=== PATIENT | male | born 1930 | race Caucasian/White ===

== ENCOUNTER 2019-01-26 09:57 | Observation (INO) ==
--- NOTE | 2019-01-26 10:37 | Diag Imaging Result Doc PS360 ---
EXAM: CHEST-PORTABLE INDICATION: stroke like symptoms TECHNIQUE: One view COMPARISON: 11/26/2017 FINDINGS: Inspiration is suboptimal. There is a calcified granuloma at the periphery of the right lower lung zone. Central vasculature appears prominent, likely a combination of central venous crowding and pulmonary venous congestion. There is vague opacity at the medial left lung base behind the heart silhouette suggesting atelectasis versus infiltrate. The pacemaker is stable. The cardiac silhouette appears mildly prominent. IMPRESSION: 1.Prominent central vasculature, likely a combination of central venous crowding from poor inspiration and pulmonary venous congestion. 2.Vague opacity at the medial left lung base suggesting atelectasis and/or infiltrate. Electronically signed by Jaleel Meraz 01/26/2019 10:35 AM
[2019-01-26 10:51] LABS: BASO# 0.03 X1000 (0.0-0.2); BASO% 0.4 % (0.0-0.8); EOS# 0.46 X1000 (0.0-0.7); HEMOGLOBIN 11.4 g/dL (14.0-18.0); LYMPH# 1.28 X1000 (1.2-3.4); LYMPH% 16.7 % (20.5-51.1); MCHC 30.8 g/dL (33-37); MCV 100.5 FL (81-99); MONO# 0.92 X1000 (0.11-0.59); MPV 11.2 FL (7.4-10.4); NEUT# 4.98 X1000 (1.4-6.5); NEUT% 64.9 % (42.2-75.2); PLT 258 X1000 (130-400); RBC 3.68 XMIL (4.7-6.1); RDW 13.7 % (11.5-14.5); WBC 7.67 X1000 (4.8-10.8)
[2019-01-26 11:00] LABS: INR 1.01; PROTIME 14.1 Seconds (11.0-16.0)
[2019-01-26 11:01] LABS: PTT 36.5 Seconds (22.3-41.8)
--- NOTE | 2019-01-26 11:46 | Diag Imaging Result Doc PS360 ---
EXAM: CT HEAD W/O CONTRAST 01/26/2019 HISTORY: stroke like symptoms TECHNIQUE: This exam was performed using automated exposure control, adjustment of mA or kV according to patient size, and/or use of iterative reconstruction technique. COMMENT: There is moderate generalized cerebral and cerebellar atrophy. There is no evidence of mass effect bleed or abnormal extra-axial fluid collection. There is periventricular white matter lucency bilaterally similar in appearance to the previous examination of 02/28/2016. The visualized paranasal sinuses are clear. The calvarium is intact. IMPRESSION: Chronic ischemic microvascular changes. Moderate cerebral and cerebellar atrophy. Electronically signed by Uday Garnica 01/26/2019 11:43 AM
[2019-01-26 12:33] LABS: ALB/GLOB RATIO 1.3; ALBUMIN 3.8 g/dL (3.5-5.0); CALCIUM 8.7 mg/dL (8.8-10.2); MAGNESIUM 3.3 mg/dL (1.5-2.7); PHOSPHORUS 7.2 mg/dL (2.7-4.5); TOTAL BILIRUBIN 0.29 mg/dL (0.20-1.00); TOTAL PROTEIN 6.7 g/dL (6.3-8.3)
[2019-01-26 12:38] LABS: POTASSIUM 6.5 mmol/L (3.5-5.1)
[2019-01-26] MEDS ORDERED: CALCIUM CHLORIDE SYRINGE IV ONE (13:19)
[2019-01-26] MEDS ORDERED: ALBUTEROL NEB INH ONE (13:19)
[2019-01-26] MEDS ORDERED: D50W SYRINGE IV ONE (13:19)
[2019-01-26] MEDS ORDERED: KAYEXALATE PO ONE (13:19)
[2019-01-26] MEDS ORDERED: HUMULIN R IV ONE (13:19)
[2019-01-26] MEDS ORDERED: SODIUM BICARBONATE 8.4% IV ONE (13:20)
[2019-01-26] MEDS ORDERED: LASIX IV ONE (13:20)
[2019-01-26] MEDS ORDERED: ZITHROMAX 500 MG/NS 500 MG/250 ML IVPB IV ONE ×2 (13:31→21:00)
[2019-01-26] MEDS ORDERED: ROCEPHIN 1 GM in NS 50 ML IV ONE ×2 (13:31→21:00)
--- NOTE | 2019-01-26 13:35 | PROVIDER DOCUMENTATION ---
This chart was entered by Rose Ariza Scribe, acting as scribe for Travis Rod MD. HPI-General Adult - General Stated Complaint: stroke-like Time Seen by Provider: 01/26/19 10:04 Source: patient, EMS Allergies/Adverse Reactions: Patient Allergies Allergy/AdvReac Type Severity Reaction Status Date / Time No Known Allergies Allergy Verified 01/27/18 13:55 Home Medications: Home Medication List Medication Instructions Recorded Confirmed Last Taken Type Calcium Acetate 667 mg PO TID 03/14/13 09/16/18 09/15/18 19:00 History Omeprazole [Prilosec] 20 mg PO DAILY@0700 03/14/13 09/16/18 09/16/18 05:45 History Nifedipine [Nifedipine ER] 30 mg PO QAM 11/01/17 09/16/18 09/16/18 05:45 History Carvedilol [Coreg] 25 mg PO BID tablet 11/08/17 09/16/18 09/16/18 05:45 Rx Venlafaxine E.r. [Effexor Xr] 37.5 mg PO QAM capsule 11/08/17 09/16/18 09/16/18 05:45 Rx Allopurinol 100 mg PO BID 01/27/18 09/16/18 09/16/18 05:45 History Ezetimibe/Simvastatin 1 each PO QHS 01/27/18 09/16/18 09/15/18 19:00 History [Ezetimibe-Simvastatin 10-20 mg] Trazodone [Desyrel] 1 - 2 tab PO QHS 01/27/18 09/16/18 09/15/18 19:00 History Insulin Lispro Protamin/Lispro 0 unit SQ DIRECTED 09/09/18 09/16/18 Unknown History [Humalog Mix 75-25 Vial] Hydrocodone/APAP 10 mg/325 mg 1 ea PO Q6H PRN PRN #30 tab 09/16/18 Unknown Rx [[place]-10] - History of Present Illness -Gen Adult Nature of Presenting Problems: Patient is a 88 year old male who presents to the ED via EMS with elevated blood pressure. EMS states patient's family stated the patient might be having a stroke. EMS states patient's family stated patient's blood pressure was elevated. EMS states on fire's arrival patient's blood pressure was 144/80. Jeffrey winston denies chest pain, nausea, vomiting and diarrhea. Patient does state generalized weakness and cough. EMS states patient is a dialysis patient and did miss his Saturday dialysis. Patient does note cough, productive of white sputum, worsening over the last few days. Location of Pain/Injury: reports: none Pain Radiation: reports: no radiation Quality of Pain: reports: none Severity: reports: mild Onset/Duration: reports: unsure Timing: reports: still present Context/Activities at Onset: reports: light activity Modifying Factors: improves with: nothing Associated Symptoms: reports: cough, weakness Similar Symptoms Previously?: Yes Recently seen or treated by another doctor?: No Review of Systems - Adult - REVIEW OF SYSTEMS - ADULT Constitutional: reports: no symptoms reported. denies: chills, fever, fatique Eyes: reports: no symptoms reported Ears, Nose, Mouth & Throat: reports: no symptoms reported Cardiovascular: reports: no symptoms reported. denies: chest pain, irregular heart rate, palpitations Respiratory: reports: cough. denies: shortness of breath, wheezing Gastrointestinal: reports: no symptoms reported Genitourinary: reports: no symptoms reported Musculoskeletal: reports: muscle weakness. denies: back pain, muscle aches, neck pain Integumentary: reports: no symptoms reported Neurological: reports: no symptoms reported Psychiatric: reports: no symptoms reported Endocrine: reports: no symptoms reported Hematologic/Lymphatic: reports: no symptoms reported Allergic/Immunologic: reports: no symptoms reported All Other Systems: Reviewed and Negative Past History - Adult - PAST MEDICAL HISTORY-ADULT Review of Records: reports: Nursing Assessment Review, Medications Reviewed, Social history reviewed & non-contributory. Major Childhood Illnesses: reports: denies history Cardiovascular: reports: CHF, HTN Respiratory: reports: denies history Gastrointestinal: reports: denies history Obstetrical/Gynecological: reports: denies history Genitourinary: reports: kidney disease Musculoskeletal: reports: denies history Neurological: reports: denies history Psychiatric: reports: depression Endocrine/Immune: reports: Diabetes Other Conditions: reports: denies history - PRIOR SURGERIES/PROCEDURES Surgical/Procedure History: reports: orthopedic (extremity), joint replacement - IMMUNIZATION STATUS Childhood Immunizations: See Nurse Assessment Flu Vaccine: See Nurse Assessment - FAMILY HISTORY Family History: reviewed, not pertinent - SOCIAL HISTORY Smoking: cigarettes (former) Substance Use: denies Living Situation: family Physical Exam-General - PHYSICAL EXAM-ADULT Initial Vital Signs Reviewed: Yes - CONSTITUTIONAL General Appearance: appears well, alert, no apparent distress - EYES Eyes: other (pin point pupils bilaterally) - RESPIRATORY Respiratory: chest non-tender, rhonchi (bilaterally) - CARDIOVASCULAR Cardiovascular: regular rate, rhythm, gallop/S3 - GASTROINTESTINAL (ABDOMEN) Abdominal Exam: normal bowel sounds, non tender, soft - MUSCULOSKELETAL Extremity: non-tender, other (dialysis shunt to left upper arm with positive thrill. nonfunctioning shunt to left lower arm. diffuse). negative: erythema, swelling - SKIN Integumentary: normal color, normal turgor, warm/dry, ecchymosis (LUE) - NEUROLOGIC Neurologic: grossly normal, no motor/sensory deficits. negative: facial droop, motor weakness - PSYCHIATRIC Psych/Mental Status: normal mood/affect, oriented x 3 Progress - PLAN OF CARE/RESULTS Result Diagrams: 01/26/19 10:16 01/26/19 12:06 - XRAY 1 XRAY Study: Chest Impression: See EMR Report ( EXAM: CHEST-PORTABLE INDICATION: stroke like symptoms TECHNIQUE: One view COMPARISON: 11/26/2017 FINDINGS: Inspiration is suboptimal. There is a calcified granuloma at the periphery of the right lower lung zone. Central vasculature appears prominent, likely a combination of central venous crowding and pulmonary venous congestion. There is vague opacity at the medial left lung base behind the heart silhouette suggesting atelectasis versus infiltrate. The pacemaker is stable. The cardiac silhouette appears mildly prominent. IMPRESSION: 1.Prominent central vasculature, likely a combination of central venous crowding from poor inspiration and pulmonary venous congestion. 2.Vague opacity at the medial left lung base suggesting atelectasis and/or infiltrate. Electronically signed by Jaleel Meraz 01/26/2019 10:35 AM 01/26/19 1035 Interpreting Physician: Jaleel Meraz MD Dictated Date/Time: 01/26/19 1033 cc: Travis Rod MD; Ever Willett MD) - CT/MRI 1 CT Study: Head Impression: See EMR Report ( EXAM: CT HEAD W/O CONTRAST 01/26/2019 HISTORY: stroke like symptoms TECHNIQUE: This exam was performed using automated expo sure control, adjustment of mA or kV according to patient size, and/or use of iterative reconstruction technique. COMMENT: There is moderate generalized cerebral and cerebellar atrophy. There is no evidence of mass effect bleed or abnormal extra-axial fluid collection. There is periventricular white matter lucency bilaterally similar in appearance to the previous examination of 02/28/2016. The visualized paranasal sinuses are clear. The calvarium is intact. IMPRESSION: Chronic ischemic microvascular changes. Moderate cerebral and cerebellar atrophy. Electronically signed by Uday Garnica 01/26/2019 11:43 AM 01/26/19 1143 Interpreting Physician: Uday Garnica MD Dictated Date/Time: 01/26/19 1142 cc: Travis Rod MD; Ever Willett MD) - CONSULTS/PCP/HOSPITALIST Notification #1 *Consult/PCP/Hospitalist*: LEYDA Soto for Dr. Rice Time Discussed: 13:26 Reason/Comments: Dr. Rod consulted with Brittany about patient. Consult Disposition: other (Brittany states patient missed Saturday dialysis last week and only did part of his Saturday dialysis. Brittany states she will contact her nurses upstairs so the patient can receive dialysis.) #2 Consult: Dr. Willett Time Discussed: 13:29 Reason/Comments: Dr. Rod consulted with Dr. Willett about patient. Consult Disposition: Admit (give rocephin/zithromax for CAP) Departure - Departure Date of Disposition Decision: 01/26/19 Time of Disposition Decision: 13:21 DIAGNOSIS: Weakness, End-stage renal disease on hemodialysis, Hyperkalemia, Uremia Community acquired pneumonia Qualifiers: Laterality: left Lung location: lower lobe of lung Qualified Code(s): J18.1 - Lobar pneumonia, unspecified organism Disposition: ADMITTED INPATIENT 09 Certified Medical Emergency: Emergent Condition: Fair Referrals and Follow-Ups: Ever Willett MD [Primary Care Provider] - - Critical Care Note This patient required my direct & personal management of CC.: Yes Total Time (mins): 46 Critical Care Statement: This patient required my direct personal management to treat or rule out processes, the absence of which, could potentiallly result in sudden, clinically significant life or limb threatening deterioration. Attestation - Physician/ DELLA Attestation Patient care was provided by Advanced Practice Provider:: No The physician spent face to face time with patient:: Yes Advanced Practice Provider documentation review:: Supervising physician onsite and consulted in the evaluation and care of this patient. The physician did have a face to face encounter with the patient. This chart was documented by the indicated scribe, (Rose Ariza Scribe) and accurately reflects the services I performed and decisions made by me, Travis Rod MD, as attested by the provider's signature.
[2019-01-26] MEDS ORDERED: TYLENOL PO PRN (13:36)
[2019-01-26] MEDS ORDERED: ZOFRAN PO PRN (13:36)
[2019-01-26] MEDS ORDERED: NS 2,000 ML MISC PRN (13:57)
--- NOTE | 2019-01-26 14:15 | ED EKG INTERP ---
EKG Interpretation - EKG Time of EKG reading by physician:: 14:14 EKG Read and Signed by:: Travis Rod EKG Interpretation (*Must complete 3 of following elements*): Abnormal Rate: 60 Rhythm: atrial paced rhythm [place]: left QRS: NSIVCD [place] Interval: normal ST Wave: non-specific ST changes Prior EKG Comparison: unchanged from prior Attestation - Physician/ DELLA Attestation Patient care was provided by Advanced Practice Provider:: No The physician spent face to face time with patient:: Yes Advanced Practice Provider documentation review:: Supervising physician onsite and consulted in the evaluation and care of this patient. The physician did have a face to face encounter with the patient.
--- NOTE | 2019-01-26 14:20 | EKG Report ---
Test Performed on : 01/26/2019 2:02:39 PM Test Reason : Stroke like symptoms Blood Pressure : / mmHG Vent. Rate : 060 BPM Atrial Rate : 000 BPM P-R Int : 172 ms QRS Dur : 178 ms QT Int : 560 ms P-R-T Axes : 000 -60 113 degrees QTc Int : 560 ms Atrial-paced rhythm Left axis deviation Left bundle branch block Abnormal ECG When compared with ECG of 09-SEP-2018 15:13, Electronic atrial pacemaker has replaced Electronic ventricular pacemaker Unconfirmed Result
--- NOTE | 2019-01-26 18:29 | NEPHROLOGY CONSULTATION ---
DATE: 01/26/2019 REASON FOR ADMISSION: Altered mental status with weakness appearing as stroke-like. REASON FOR CONSULT: Hyperkalemia, end-stage renal disease with assistance with medical management. HISTORY OF PRESENT ILLNESS: Mr. Sage is an 88-year-old white male who is known to our outpatient services for hemodialysis on Saturday, Saturday, Saturday. The patient was due for his dialysis treatment today and due to his weakness and stroke-like symptoms his family bypassed the dialysis clinic and brought him straight to [facility] emergency department. The patient had actually missed his last treatment on last Saturday due to not feeling well, went to his treatment on Saturday, though he did not stay for his full entire treatment. Today he presents with a potassium of 6.5 in the emergency room. He has an elevated blood pressure. He denies any chest pain. No fever or chills. No increased work of breathing. No nausea, vomiting, or diarrhea. Generalized weakness with cough. PAST MEDICAL HISTORY: End-stage renal disease with hemodialysis on Saturday, Saturday, Saturday, systolic and diastolic heart failure, hypertension, anemia of chronic disease, diabetes mellitus type 2, osteodystrophy of chronic disease, depression, hyperphosphatemia, reflux. PREVIOUS SURGICAL HISTORY: Orthopedic joint replacement, patient has had dialysis tunnel catheter placement. FAMILY HISTORY: Noncontributory to kidney injury. SOCIAL HISTORY: He lives with his family. Denies any tobacco, alcohol or illicit drug use as a former tobacco smoker. ALLERGIES: Listed as no known drug allergies. HOME MEDICATIONS: Prilosec, Coreg, Effexor, simvastatin, allopurinol, vitamin C, PhosLo, vitamin B12, mirtazapine, multivitamin. REVIEW OF SYSTEMS: Times 10 with pertinent positives listed above in the HPI. His most recent vital signs temperature 98.1 degrees, blood pressure 139/67, heart rate 69, respirations 20, he is on 2 L nasal cannula, last recorded saturation 100%, he has had 0 recorded in or out. LAB: Sodium 135, potassium 6.5, chloride 94, CO2 23, BUN 102, creatinine 8, glucose 155, his anion gap is 18, calcium 8.7, phosphorus 7.2, albumin 3.8, white count 7.51, hemoglobin 11.4, hematocrit 37, platelet count 258,000. The patient has a PT of 14.1 and INR of 10.1 with a PTT of 36.5. PHYSICAL: This is an 88-year-old elderly male resting quietly in bed. He appears chronically ill no acute distress.Skin: Warm and dry. HEENT: Normocephalic, atraumatic. Conjunctiva is pale. He has MELODY. Mucous membranes are dry. Neck: Supple, trachea midline. No evidence of JVD. Cardiovascular: He is regular rate and rhythm. He does have a gallop, S3 present. Lungs: Diminished breath sounds with poor inspiratory effort. Clear to auscultation anterior, equal excursion. Abdomen: Soft, nontender, positive bowel sounds. Genitourinary: Not inspected, minimal void with dialysis assist. Neurologic: Patient is alert and oriented. He does have weakness to all 4 extremities. He does have appearance of a facial droop to the left. Patient had a chest x-ray indicating prominent central vascularization with poor inspiratory and pulmonary venous congestion, medial left lung suggesting atelectasis or infiltrate. CT of the head was performed without contrast, chronic ischemic microvascular changes, moderate cerebral and cerebellar atrophy, no acute disease. ASSESSMENT AND PLAN: 1. Chronic kidney disease stage 5D. Patient has been noncompliant in his dialysis treatments. We will plan to dialyze patient on a 2K bath we will dialyze for 3-1/2 hours. We will attempt to challenge patient's outpatient dry weight. 2. Electrolytes and acid-base balance. Patient has hyperkalemia. These are with correction on dialysis. 3. Anemia. This remains close to baseline of hemoglobin of 12. 4. Stroke-like symptoms more than likely secondary to hyperkalemia. We will plan for dialysis today. We will reevaluate in the a.m. Like to thank you for allowing us to follow with this patient. Dictated by LEYDA Vo for Curtis Rice MD cc: LEYDA Vo MD Russell T. Barr, MD
[2019-01-26] MEDS ORDERED: ZETIA PO SCH (21:00)
[2019-01-26] MEDS ORDERED: ZOCOR PO SCH (21:00)
[2019-01-26] MEDS: PHOSLO PO SCH (22:49)
[2019-01-26] MEDS: COREG PO SCH (22:50)
[2019-01-26] MEDS: ZYLOPRIM PO SCH (22:50)
--- NOTE | 2019-01-27 06:30 | HISTORY AND PHYSICAL ---
CHIEF COMPLAINT: Severe generalized weakness, possible stroke. 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 His caregivers at home noted severe weakness today and decided it would be better for him to go to the emergency room with what they thought might be a stroke. He has had some chronic dry cough for months which has not really been worse. They have not reported any fever or chills. In the emergency room he was found to have hyperkalemia with a potassium of 6.5. His weakness seemed generalized rather than focal. Further history documented that he had skipped his hemodialysis last Saturday and only had a partial treatment on Saturday. I believe that explains his elevated BUN and creatinine and hyperkalemia. PAST MEDICAL HISTORY: In addition to the above, he has a history of systolic and diastolic heart failure, hypertension, anemia of chronic disease, type 2 diabetes mellitus, depression, esophageal reflux and osteoarthritis. FAMILY HISTORY: Positive for hypertension and diabetes. SOCIAL HISTORY: He is , lives with his . His two sons are but one daughter- in-law is still quite attentive and has arranged for [id number] sitters for him and his . His has significant dementia. Mr. Sage is a former cigarette smoker but has not smoked in at least 20 years. ALLERGIES: None known. HOME MEDICATIONS: See computer list. REVIEW OF SYSTEMS: GENERAL: No fever, chills, night sweats, or weight loss. RESPIRATORY: Chronic dry cough but no sputum production or shortness of breath. CARDIOVASCULAR: He has previously had several heart attacks but no recent angina. He has known chronic systolic and diastolic congestive heart failure. This has been much easier to control and his hypertension since beginning hemodialysis. GI: His appetite has been adequate. He denies any nausea, vomiting, diarrhea. Has occasional constipation. : He produces very little urine. His renal failure is presumed due to hypertension and diabetes nephrosclerosis. PHYSICAL EXAMINATION: GENERAL APPEARANCE: A chronically ill-appearing, elderly gentleman resting quietly in bed. He is alert, recognizes me and his speech is clear and without any dysarthria. SKIN: Warm, pink and dry. HEENT: There is no evidence of trauma. Conjunctivae are pale. Mucous membranes are slightly tacky. NECK: Supple with no JVD or bruits. CARDIOVASCULAR: Regular rate and rhythm. Intermittent S3 gallop is noted. RESPIRATORY: His lung sounds are slightly diminished with reduced respiratory effort but I did not hear any crackles or wheezes. ABDOMEN: Soft, nontender with active bowel sounds. NEUROLOGIC: He is alert and oriented and has equal hand drip and is able to move all extremities. There is very slight facial asymmetry with a slight droop to the left side which is old. DATABASE: Potassium 6.5. BUN 102. Creatinine 8. His baseline BUN is approximately 30 to 35. Baseline creatinine 3 to 3.5. Glucose 155. Phosphorous 7.2. Hematocrit 37%. Chest x-ray showed reduced inspiratory effort and haziness in the left midlung morrison suggesting atelectasis or infiltrate. CT of the brain without contrast shows chronic ischemic microvascular changes with no acute findings. ASSESSMENT: 1. End-stage renal disease, hemodialysis dependent with recently ineffective dialysis for multiple reasons. He has already undergone inpatient hemodialysis today and his potassium is down to 4.7. 2. Type 2 diabetes mellitus. No longer requiring insulin since hemodialysis. 3. Generalized weakness secondary to hyperkalemia. I see no evidence for a new stroke. TREATMENT PLAN: Will admit for inpatient hemodialysis which has already been accomplished. He will likely be discharged in the morning, possibly on oral antibiotics. cc: Ever Willett MD
[2019-01-27] MEDS ORDERED: PRILOSEC PO SCH (07:00)
[2019-01-27 07:57] LABS: ALBUMIN 3.4 g/dL (3.5-5.0); CALCIUM 7.9 mg/dL (8.8-10.2); CREATININE 5.6 mg/dL (0.7-1.2); PHOSPHORUS 5.6 mg/dL (2.7-4.5); POTASSIUM 5.3 mmol/L (3.5-5.1)
[2019-01-27] MEDS ORDERED: VITAMIN B-12 PO SCH (09:00)
[2019-01-27] MEDS ORDERED: VITAMIN C PO SCH (09:00)
[2019-01-27] MEDS ORDERED: ZITHROMAX PO SCH (09:00)
[2019-01-27] MEDS ORDERED: EFFEXOR XR PO SCH (09:00)
[2019-01-27] MEDS: COREG PO SCH (09:26)
[2019-01-27] MEDS: ZYLOPRIM PO SCH (09:26)
[2019-01-27] MEDS: PHOSLO PO SCH (09:26)
[2019-01-27 11:52] VITALS: BP 135/52
--- NOTE | 2019-01-27 19:12 | DISCHARGE SUMMARY ---
ADMISSION DATE: 01/26/2019 DISCHARGE DATE: 01/27/2019 FINAL DIAGNOSES: 1. Generalized muscle weakness secondary to #2. 2. Hyperkalemia secondary to #3. 3. End-stage renal disease, on hemodialysis. 4. Diabetes mellitus with chronic renal disease. 5. Essential hypertension. HISTORY OF PRESENT ILLNESS: Mr. Sage is an 88-year-old gentleman who lives at home with his demented and has nearly constant sitters in attendance. The sitter was preparing him for his hemodialysis session yesterday morning when she noticed generalized severe weakness. Fearing a stroke, she had him brought to the emergency room instead of dialysis. In the emergency room, his examination was nonfocal but his laboratory revealed a markedly elevated BUN, creatinine, and potassium of 6.5 mg/dL. It was felt he would need overnight observation and inpatient hemodialysis. For further details, see his dictated History and Physical and Nephrology consult. HOSPITAL COURSE: He was taken to the Hemodialysis Unit and Dr. Rice arranged his hemodialysis session. Afterwards, his potassium was down to 4.7. Chest x-ray on admission documented reduced inspiratory effort but there was some haziness behind the left heart that was felt to represent atelectasis or infiltrate. His white blood count was normal but he had been complaining of cough for some time. I feel he may have some early pneumonia and he received two doses of Zithromax and will complete the Z pack treatment at home. This morning, he is stronger and able to stand and transfer to bedside chair with standby assistance. His neurologic exam remains nonfocal and I feel the hyperkalemia explains his muscle weakness yesterday and that he can be discharged today and return for his usual scheduled hemodialysis tomorrow. DISCHARGE MEDICATIONS: Acetaminophen 650 mg q six hours p.r.n. for pain, Allopurinol 200 mg daily, ascorbic acid 1 gram daily, azithromycin 250 mg daily for three days, calcium acetate 667 mg twice a day with meals, carvedilol 25 mg twice a day, vitamin B12 1000 mcg p.o. daily, ezetimibe/simvastatin one tablet at bedtime, omeprazole 20 mg daily, venlafaxine ER 37.5 mg daily, mirtazapine 15 mg at bedtime, trazodone 100 mg at bedtime as needed for sleep, multivitamin one daily. He is to return to my office in 8 to 14 days for transition of care visit. cc: Ever Willett MD
--- NOTE | 2019-01-27 20:01 | NEPHROLOGY PROGRESS NOTE ---
DATE: 01/27/2019 TIME SEEN: 0920 hours. SUBJECTIVE: Mr. Sage is sitting up in bed. He states that he is fatigued after dialysis treatment yesterday. Denies any chest pain or increased work of breathing. OBJECTIVE: His most recent vital signs: Temperature 98.6 degrees, blood pressure 125/51, heart rate 60, respirations 20. He is on room air. Last recorded saturation is 100%. He has had 300 mL in, with 1 L out removed on dialysis. This is an 88-year-old white male who is currently resting in bed. He had his hemodialysis treatment yesterday. He appears chronically ill with no acute distress. His skin is warm and dry. HEENT: Normocephalic, atraumatic. Conjunctivae pale. He has MELODY. Some arcus senilis present. Mucous membranes are dry. Neck is supple. Trachea midline. No JVD. Cardiovascular: Regular rate and rhythm. He has a soft gallop. Lungs: Diminished respiratory effort. Clear to auscultation. Remains on room air. Abdomen soft, nontender. Positive bowel sounds. Genitourinary not inspected. Minimal void with dialysis assist. Extremities have no edema. No clubbing or cyanosis. Neurological: He is alert and oriented x3. LABORATORY DATA: Sodium is 136, potassium is 5.3, chloride 95, CO2 is 24, BUN 63, creatinine 5.6, glucose is 120, anion gap is 17, calcium is 7.9, phosphorus 5.9, albumin 3.4. White count 7.67, hemoglobin 11.4, hematocrit 37, platelet count 258,000. ASSESSMENT AND PLAN: 1. Chronic kidney disease stage 5. The patient had his routine dialysis treatment yesterday. His potassium has returned to stable level of 5.3. No indications for intervention today. He has discussed that he is to attend his outpatient dialysis treatment in the morning. 2. Electrolytes and acid-base balance. Hyperkalemia has resolved. 3. Anemia. This is stable. 4. Strokelike symptoms secondary to hyperkalemia. This has improved status post dialysis. I would like to thank you for allowing us to follow with this patient. Dictated by LEYDA Vo for Curtis Rice MD cc: LEYDA Vo MD Russell T. Willett, MD
== END 2019-01-27 12:24 | disposition home or self-care (01) ==
LOC: SUPCPDRO → 3N 09:57 → ED 09:57
PROVIDERS: ADMIT Internal Medicine; ATTEND Internal Medicine
CPT/HCPCS: 70450; 71010; 71045; 80053; 80069; 83605; 83735; 84100; 84132; 84484; 85025; 85610; 85730; 87040; 93005; 94640; 99285; A9270; J0456; J0696; J7030

== ENCOUNTER 2019-01-30 11:54 | Inpatient (IN) ==
[2019-01-30] MEDS ORDERED: TYLENOL PO ONE (13:07)
[2019-01-30 13:13] LABS: BASO# 0.02 X1000 (0.0-0.2); BASO% 0.2 % (0.0-0.8); EOS# 0.29 X1000 (0.0-0.7); EOS% 2.2 % (0.0-10.0); HEMATOCRIT 39.5 % (42.0-52.0); IMM GRAN# 0.06 X1000 (0.0-0.04); IMM GRAN% 0.5 % (0.0-0.5); LYMPH# 1.34 X1000 (1.2-3.4); LYMPH% 10.1 % (20.5-51.1); MCHC 30.4 g/dL (33-37); MCV 102.1 FL (81-99); MONO# 1.01 X1000 (0.11-0.59); MONO% 7.6 % (1.7-9.3); MPV 11.6 FL (7.4-10.4); NEUT# 10.49 X1000 (1.4-6.5); NEUT% 79.4 % (42.2-75.2); PLT 258 X1000 (130-400); RBC 3.87 XMIL (4.7-6.1); RDW 13.7 % (11.5-14.5); WBC 13.21 X1000 (4.8-10.8)
[2019-01-30 13:47] LABS: ALB/GLOB RATIO 1.6; ALBUMIN 4.1 g/dL (3.5-5.0); CALCIUM 8.5 mg/dL (8.8-10.2); CREATININE 6.6 mg/dL (0.7-1.2); TOTAL BILIRUBIN 0.26 mg/dL (0.20-1.00); TOTAL PROTEIN 6.6 g/dL (6.3-8.3)
[2019-01-30 13:51] LABS: POTASSIUM 6.1 mmol/L (3.5-5.1)
--- NOTE | 2019-01-30 14:08 | Diag Imaging Result Doc PS360 ---
EXAM: CHEST-1 VIEW 01/30/2019 HISTORY: fall TECHNIQUE: AP portable upright at 1348 COMMENT: The inspiration is suboptimal. The opacity previously present in the retrocardiac region of the left lower lobe on 01/26/2019 has improved. Otherwise there has been no significant change. IMPRESSION: Improved left lower lobe atelectasis. Electronically signed by Uday Garnica 01/30/2019 2:05 PM
--- NOTE | 2019-01-30 14:09 | Diag Imaging Result Doc PS360 ---
EXAM: SHOULDER 1 VIEW RIGHT 01/30/2019 HISTORY: fall TECHNIQUE: Right shoulder one view COMMENT: There is probable calcium pyrophosphate deposition in the acromioclavicular joint and severe degenerative changes present in the glenohumeral joint with ztpr-jr-[id number] contact and sclerosis and subchondral cyst formation. There is a small bony fragment above the greater tuberosity which was also apparently present on 01/21/2019. IMPRESSION: Osteoarthritis with calcium pyrophosphate deposition disease. Electronically signed by Uday Garnica 01/30/2019 2:06 PM
--- NOTE | 2019-01-30 14:10 | Diag Imaging Result Doc PS360 ---
EXAM: XRAY PELVIS W/HIP 2-3VW RT 01/30/2019 HISTORY: fall TECHNIQUE: AP pelvis and right hip two views COMMENT: There is narrowing of the joint spaces in both hips. There is extensive arteriosclerosis. There is an intertrochanteric fracture of the right femur. There is calcium pyrophosphate deposition in the symphysis pubis. IMPRESSION: Right intertrochanteric fracture. Osteoarthritis. Arteriosclerosis. Electronically signed by Uday Garnica 01/30/2019 2:08 PM
--- NOTE | 2019-01-30 15:48 | PROVIDER DOCUMENTATION ---
This chart was entered by Nelida Marks Scribe, acting as scribe for Vielka Morales MD. HPI-Musculoskeletal Pain/Inj - GENERAL Chief Complaint: Hip Pain Stated Complaint: fall/hip pain Time Seen by Provider: 01/30/19 12:01 Source: patient, family (daughter) - HX OF PRESENT ILLNESS-MUSKULOSKELTAL Quality of Pain: reports: aching Severity in ED: moderate Onset/Duration: this morning (1115am) Timing: still present Modifying Factors: improves with: immobilization. 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 denies: back/neck pain, chest pain, dizziness, nausea, shortness of breath, snap/crack/pop sensation, vomiting - HIP/PELVIS PAIN/INJURY Hip Pain Location: reports: hip (R) Context / Method of Injury: reports: fall Associated Symptoms: reports: denies symptoms - LOWER EXTREMITY PAIN/INJURY Lower Extremities Pain: hip: right Context / Method of Injury: reports: fell Associated Symptoms: reports: denies symptoms - UPPER EXTREMITY PAIN/INJURY Extremities Pain Location: shoulder: right (has chronic pain but sts this is worse) Context / Method of Injury: reports: fell Associated Symptoms: reports: denies symptoms Review of Systems - Adult - REVIEW OF SYSTEMS - ADULT Constitutional: reports: no symptoms reported Eyes: reports: no symptoms reported Ears, Nose, Mouth & Throat: reports: no symptoms reported Cardiovascular: denies: chest pain, palpitations Respiratory: denies: cough, shortness of breath, wheezing Gastrointestinal: denies: abdominal pain, diarrhea, nausea, vomiting Genitourinary: reports: no symptoms reported Musculoskeletal: reports: see HPI, joint pain (rt shoulder and rt hip), muscle aches. denies: back pain, neck pain Integumentary: reports: no symptoms reported Neurological: denies: dizziness/vertigo, headache/migraines Psychiatric: reports: no symptoms reported Endocrine: reports: no symptoms reported Hematologic/Lymphatic: reports: see HPI, easy bruising Allergic/Immunologic: reports: no symptoms reported All Other Systems: Reviewed and Negative Past History - Adult - PAST MEDICAL HISTORY-ADULT Review of Records: reports: Old Records Reviewed, Nursing Assessment Review, Medications Reviewed, Social history reviewed & non-contributory. Major Childhood Illnesses: reports: denies history Cardiovascular: reports: CHF, HTN Respiratory: reports: denies history Gastrointestinal: reports: denies history Obstetrical/Gynecological: reports: denies history Genitourinary: reports: kidney disease Musculoskeletal: reports: arthritis Hand Dominance: Right Handed Neurological: reports: denies history Psychiatric: reports: depression Endocrine/Immune: reports: Diabetes Other Conditions: reports: denies history - PRIOR SURGERIES/PROCEDURES Surgical/Procedure History: reports: orthopedic (extremity), joint replacement - IMMUNIZATION STATUS Childhood Immunizations: See Nurse Assessment Flu Vaccine: See Nurse Assessment - FAMILY HISTORY Family History: reviewed, not pertinent - SOCIAL HISTORY Smoking: quit greater than 1 year Substance Use: denies Alcohol Use Frequency: never Living Situation: family Physical Exam-Injury Related - Physical Exam-Injury Related Initial Vital Signs Reviewed: Yes General Appearance: alert, no apparent distress Eyes: PERRL/EOMI, pink conjunctivae Head, Ears, Nose, Mouth & Throat: moist mucous membranes, normal ENT inspection Neck: full range of motion, supple, normal inspection Respiratory: chest non-tender, lungs clear, normal breath sounds Cardiovascular: normal peripheral pulses, regular rate, rhythm Chest/Breast: deferred Abdominal Exam: normal bowel sounds, non tender, soft Male Genitalia: deferred Rectal Exam: deferred Hemoccult Exam: deferred Lymphatic: no adenopathy Back Exam: normal inspection, no CVA tenderness, no vertebral tenderness Extremity: no pedal edema, no calf tenderness, normal capillary refill, pelvis stable, erythema (with skin tear to left elbow), tenderness (rt hip and rt shoulder) Integumentary: normal color, warm/dry Neurologic: grossly normal, no motor/sensory deficits Psych/Mental Status: normal mood/affect, normal thought content, normal thought process, oriented x 3 - Glascow Coma Score Best Eye Response ([place]): (4) open spontaneously Best Verbal Response ([place]): (5) oriented Best Motor Response ([place]): (6) obeys commands [place] Total: 15 Progress - PLAN OF CARE/RESULTS Progress/Plan/Lab Results: Vital Signs - 8 hr 01/30/19 12:05 01/30/19 12:06 01/30/19 12:10 Temperature 97.8 F Pulse Rate 61 60 60 Respiratory Rate 18 18 24 Blood Pressure 104/53 104/53 O2 Sat by Pulse Oximetry 92 L 93 L 01/30/19 12:20 01/30/19 12:30 01/30/19 12:40 Temperature Pulse Rate 61 66 63 Respiratory Rate 16 21 18 Blood Pressure O2 Sat by Pulse Oximetry 96 94 L 92 L 01/30/19 12:42 01/30/19 12:50 01/30/19 13:00 Temperature Pulse Rate 76 75 Respiratory Rate 18 7 L 17 Blood Pressure 109/68 O2 Sat by Pulse Oximetry 98 94 L 01/30/19 13:10 01/30/19 13:20 01/30/19 13:30 Temperature Pulse Rate 72 72 69 Respiratory Rate 17 14 16 Blood Pressure O2 Sat by Pulse Oximetry 91 L 93 L 92 L 01/30/19 13:40 01/30/19 13:50 01/30/19 14:00 Temperature Pulse Rate 75 71 71 Respiratory Rate 16 13 Blood Pressure O2 Sat by Pulse Oximetry 81 L 83 L 100 Laboratory Results - last 24 hr 01/30/19 01/30/19 01/30/19 12:08 12:08 12:08 WBC 13.21 H RBC 3.87 L Hgb 12.0 L Hct 39.5 L MCV 102.1 H MCH 31.0 MCHC 30.4 L RDW Std Deviation 13.7 Plt Count 258 MPV 11.6 H Immature Gran % (Auto) 0.5 Neut % (Auto) 79.4 H Lymph % (Auto) 10.1 L [place] % (Auto) 7.6 Eos % (Auto) 2.2 Baso % (Auto) 0.2 Immature Gran # (Auto) 0.06 H Neut # (Auto) 10.49 H Lymph # (Auto) 1.34 [place] # (Auto) 1.01 H Eos # (Auto) 0.29 Baso # (Auto) 0.02 Sodium 132 L Potassium 6.1 H* Chloride 91 L Carbon Dioxide 26 Anion Gap 15 BUN 75 H Creatinine 6.6 H Estimated GFR/1.73 m2 8 BUN/Creatinine Ratio 11 Glucose 165 H Calculated Osmolality 290 Calcium 8.5 L Total Bilirubin 0.26 AST 16 ALT 15 Alkaline Phosphatase 78 Troponin T 0.058 Total Protein 6.6 Albumin 4.1 Globulin 2.5 Albumin/Globulin Ratio 1.6 Orders Category Date Time Status CHEST-1 VIEW [RAD] Stat Exams 01/30/19 12:31 Completed SHOULDER 1 VIEW RIGHT [RAD] Stat Exams 01/30/19 12:31 Completed XRAY PELVIS W/HIP 2-3VW RT [RAD] Stat Exams 01/30/19 12:31 Completed CBC WITH ELECTRONIC DIFF [HEME] Stat Lab 01/30/19 12:08 Completed COMPREHENSIVE METABOLIC PANEL [CHEM] Stat Lab 01/30/19 12:08 Completed TROPONIN T Stat Lab 01/30/19 12:08 Completed Acetaminophen [Tylenol] Med 01/30/19 13:07 Discontinued 1,000 mg PO NOW ONE Result Diagrams: 01/30/19 12:08 01/30/19 12:08 - REASSESSMENT Reassessment #1 Time Reassessed: 12:37 (dr morales called to bedside pt is unresponsive with agonal breathing. pt had cpr started 1237 and pt then started moving arms and blinking. cpr was stopped. pt was incontient of urine and was given 1 amp of atropine @1241. pupils are pinpoint. pt at 1243 was having nausea and is awake and speaking. ) Status: worsening Reassessment #2 Time Reassessed: 13:48 (dr morales at bedside. pt placed on nonrebreather due to brief episodes of low O2 and going unresponsive. family is at bedside. pt now is a/o x3 and calm) Status: unchanged Reassessment #3 Time Reassessed: 14:57 (waiting on dr osullivan to return call ) Status: unchanged - EKG 1 Time of EKG reading by physician:: 12:49 EKG Read and Signed by:: Vielka Morales EKG Interpretation (*Must complete 3 of following elements*): Abnormal Rate: 80 Rhythm: sinus rhythm w/ 1st degree av block [place]: left (deviatuion) QRS: other (nonspecific intraventricular block) NC Interval: normal ST Wave: normal Comments: lateral/inferior infarct, age undetermined - XRAY 1 XRAY: Right XRAY Study: Shoulder Impression: See EMR Report (EXAM: SHOULDER 1 VIEW RIGHT 01/30/2019 HISTORY: fall TECHNIQUE: Right shoulder one view COMMENT: There is probable calcium pyrophosphate deposition in the acromioclavicular joint and severe degenerative changes present in the glenohumeral joint with uprf-fu-drok contact and sclerosis and subchondral cyst formation. There is a small bony fragment above the greater tuberosity which was also apparently present on 01/21/2019. IMPRES WILMA: Osteoarthritis with calcium pyrophosphate deposition disease. Electronically signed by Uday Garnica 01/30/2019 2:06 PM 01/30/19 1406 Interpreting Physician: Uday Garnica MD Dictated Date/Time: 01/30/19 1405 cc: Vielka Morales MD; Ever Osullivan MD) 2 XRAY: Right XRAY Study: Pelvis, Hip Impression: See EMR Report (EXAM: XRAY PELVIS W/HIP 2-3VW RT 01/30/2019 HISTORY: fall TECHNIQUE: AP pelvis and right hip two views COMMENT: There is narrowing of the joint spaces in both hips. There is extensive arteriosclerosis. There is an intertrochanteric fracture of the right femur. There is calcium pyrophosphate deposition in the symphysis pubis. IMPRESSION: Right intertrochanteric fracture. Osteoarthritis. Arteriosclerosis. Electronically signed by Uday Garnica 01/30/2019 2:08 PM 01/30/19 1408 Interpreting Physician: Uday Garnica MD Dictated Date/Time: 01/30/19 1407 cc: Vielka Morales MD; Ever Osullivan MD) 3 XRAY: Bilateral XRAY Study: Chest Impression: See EMR Report (EXAM: CHEST-1 VIEW 01/30/2019 HISTORY: fall TECHNIQUE: AP portable upright at 1348 COMMENT: The inspiration is suboptimal. The opacity previously present in the retrocardiac region of the left lower lobe on 01/26/2019 has improved. Otherwise there has been no significant change. IMPRESSION: Improved left lower lobe atelectasis. Electronically signed by Uday Garnica 01/30/2019 2:05 PM 01/30/19 1405 Interpreting Physician: Uday Garnica MD Dictated Date/Time: 01/30/19 1401 cc: Vielka Morales MD; Ever Osullivan MD) - CONSULTS/PCP/HOSPITALIST Notification #1 *Consult/PCP/Hospitalist*: dr cheyanne dillon Time Discussed: 14:36 (NPO after midnight and admit to hospitalist) Reason/Comments: phone consult #2 Consult: Dr. Osullivan Time Discussed: 15:48 Reason/Comments: hip fx Consult Disposition: Admit Departure - Departure Date of Disposition Decision: 01/30/19 Time of Disposition Decision: 15:47 DIAGNOSIS: End-stage renal disease on hemodialysis Hip fracture, right Qualifiers: Encounter type: initial encounter Fracture type: closed Qualified Code(s): S72 .001A - Fracture of unspecified part of neck of right femur, initial encounter for closed fracture Disposition: ADMITTED INPATIENT 09 Certified Medical Emergency: Emergent Condition: Stable Referrals and Follow-Ups: Ever Osullivan MD [Primary Care Provider] - - Critical Care Note This patient required my direct & personal management of CC.: Yes Total Time (mins): 36 Critical Care Statement: This patient required my direct personal management to treat or rule out processes, the absence of which, could potentiallly result in sudden, clinically significant life or limb threatening deterioration. Attestation - Physician/ DELLA Attestation Patient care was provided by Advanced Practice Provider:: No The physician spent face to face time with patient:: Yes Advanced Practice Provider documentation review:: Supervising physician onsite and consulted in the evaluation and care of this patient. The physician did have a face to face encounter with the patient. This chart was documented by the indicated scribe, (Nelida Marks Scribe) and accurately reflects the services I performed and decisions made by me, Vielka Morales MD, as attested by the provider's signature.
[2019-01-30] MEDS ORDERED: TORADOL IM ONE (16:28)
[2019-01-30] MEDS ORDERED: HUMALOG IV ONE (18:28)
[2019-01-30] MEDS ORDERED: D50W SYRINGE IV ONE (18:28)
[2019-01-30] MEDS ORDERED: CALCIUM GLUCONATE 1 GM in NS 50 ML IV ONE (18:28)
[2019-01-30] MEDS ORDERED: KAYEXALATE PO ONE (18:32)
--- NOTE | 2019-01-30 18:50 | HISTORY AND PHYSICAL ---
CHIEF COMPLAINT: Fell at home this morning, right hip fracture. HISTORY OF PRESENT ILLNESS: Mr. 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 He was at home this morning preparing to go to his hemodialysis session. 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 He was unable to get up and was brought by EMS to the emergency room for evaluation. He also complained of some right shoulder pain. He has had multiple x-rays and has an intertrochanteric fracture of the right hip. Twice while he was in the emergency room here today, he has had episodes of decreased responsiveness and some bradycardia and hypoxemia. During the first episode, he seemed to lose a pulse and actually had CPR for a moment, and then recovered. The emergency room physician has been hesitant to give him any narcotics for his hip pain due to the possible respiratory depression. When I examined him a few minutes ago, he was alert and talkative and recognized me. He denied shortness of breath and seemed to maintain an adequate O2 saturation on nasal cannula at 3 liters. PAST MEDICAL HISTORY: Has longstanding type 2 diabetes mellitus and hypertension, which together have caused renal disease. He has been on hemodialysis for approximately 2 years and goes to [facility] on Saturday, Saturday and Saturday afternoons. He has a history of systolic and diastolic heart failure, previous myocardial infarctions and coronary disease, anemia of chronic renal disease, esophageal reflux and osteoarthritis. FAMILY HISTORY: Positive for hypertension and diabetes. SOCIAL HISTORY: He is and lives with his . His two sons are , but 1 daughter- in-law is quite attentive and has arranged [id number] sitters for him and his . His has significant dementia. Mr. Sage is a former cigarette smoker but has not smoked in over 20 years. ALLERGIES: None known. HOME MEDICATIONS: See computer list. REVIEW OF SYSTEMS: GENERAL: No fever, chills, night sweats or weight loss. RESPIRATORY: Chronic dry cough. Recently he was here in the hospital and had a chest x-ray with a questionable left lingular infiltrate. He has finished a Z-Kleber today, but when he was here in the hospital earlier this week he had no crackles on exam and no fever. His white blood count was normal. CARDIOVASCULAR: He has a history of several previous heart attacks with no recent angina. His blood pressure has been much easier to control since beginning hemodialysis. GI: His appetite has been adequate. He denies any nausea, vomiting or diarrhea. He does have occasional constipation. : No dysuria. He produces minimal urine. PHYSICAL EXAMINATION: VITAL SIGNS: As in nurses' notes, generally unremarkable. GENERAL APPEARANCE: Egopffzitef-ktz-drwqqymsm elderly gentleman in bed who is alert and recognizes me. His speech is clear without any dysarthria. SKIN: Warm, slightly pale and dry. HEENT: There is no visible evidence of trauma. Mucous membranes are moist. NECK: Supple. No JVD or bruits. CARDIOVASCULAR: Regular rate and rhythm. A faint intermittent S3 gallop is occasionally heard. Respiratory lung sounds are clear bilaterally without crackles or wheezes. ABDOMEN: Soft and nontender with active bowel sounds. NEUROLOGIC: He is alert and oriented. I do not notice any facial asymmetry today. EXTREMITIES: Both shoulders are somewhat sore and have reduced range of motion. There is a skin tear over the left lateral elbow. The right leg is slightly shortened and externally rotated. Pedal pulses are faintly present, and capillary refill is good. DATABASE: Potassium 6.1. BUN and creatinine are slightly above his baseline. White blood count 13,000. Hemoglobin and hematocrit are stable. Chest x-ray shows better inspiration and no obvious infiltrates. ASSESSMENT: 1. Fall at home with an acute right intertrochanteric femoral neck fracture. 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 The cause of his episodic diminished consciousness is unclear. 2. End-stage renal disease, on hemodialysis. He missed his dialysis today, and his potassium is somewhat elevated. His acid/base status is okay. I have contacted Dr. Rice, and I believe a session of hemodialysis is scheduled for this evening. His left upper arm shunt seems to be functioning adequately. 3. Type 2 diabetes mellitus. No hypoglycemia was documented during his episodes, although this remains a possibility. 4. History of osteoarthritis. His x-rays show calcium pyrophosphate deposition disease, so it may be more pseudogout. 5. History of severe depression 2 years ago. He has been maintained on some low-dose antidepressants, and I am unsure whether these should be continued. Will hold them tonight and consider resuming them after surgery. TREATMENT PLAN: As outlined above. cc: MD Giuseppe Samaniego MD MTDD
[2019-01-30] MEDS: OFIRMEV 1000 MG/ISOTONIC SOLN 1,000 MG/100 ML BOTTLE IV SCH (18:55)
[2019-01-30] MEDS: ALBUTEROL 0.5% INH CONC FOR HYPERKALEMIA INH ONE ×2 (19:56→20:11)
[2019-01-30] MEDS: PHOSLO PO SCH (20:05)
[2019-01-30] MEDS: COREG PO SCH (20:05)
[2019-01-30] MEDS ORDERED: NS 500 ML IV SCH (23:00)
[2019-01-31] MEDS: OFIRMEV 1000 MG/ISOTONIC SOLN 1,000 MG/100 ML BOTTLE IV SCH ×2 (00:44→06:00)
[2019-01-31] MEDS ORDERED: NS 1,000 ML IV SCH (01:00)
[2019-01-31] MEDS: PRILOSEC PO SCH ×2 (06:00→08:35)
[2019-01-31 08:09] LABS: HEMATOCRIT 35.9 % (42.0-52.0); HEMOGLOBIN 10.9 g/dL (14.0-18.0); MCH 31.1 PG (27-31); MCHC 30.4 g/dL (33-37); MCV 102.3 FL (81-99); MPV 11.2 FL (7.4-10.4); RBC 3.51 XMIL (4.7-6.1); RDW 13.8 % (11.5-14.5); WBC 11.43 X1000 (4.8-10.8)
--- NOTE | 2019-01-31 08:15 | CONSULTATION ---
DATE OF CONSULTATION: 01/31/2019 CHIEF COMPLAINT: Right hip pain. HISTORY OF PRESENT ILLNESS: Mr. 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 He could not bear weight afterwards, and had going to the emergency department here at [facility]. In the ER, it sounds like he lost his pulse and they actually started CPR, but recovered him very quickly. Most of his pain is at the right hip. The pain is worse with any movement; it does feel better when he is off of it. PAST MEDICAL HISTORY: Type 2 diabetes, hypertension, end-stage renal disease requiring hemodialysis on Saturday, Saturday and Fridays, coronary artery disease, previous myocardial infarctions. SOCIAL HISTORY: He is and lives with his . He denies any smoking or alcohol use currently. FAMILY HISTORY: Positive for hypertension and diabetes. ALLERGIES: No known drug allergies. HOME MEDICATIONS: Per the medical record. REVIEW OF SYSTEMS: Positive for heart issues, hemodialysis, and his right hip pain. PHYSICAL EXAMINATION: General: Chronically ill-appearing male, who does not seem to be in any distress this morning. Head and Neck: Head is normocephalic, atraumatic. Respirations: He is on nasal cannula, but he seems to be breathing and he has nonlabored breathing. Cardiovascular: Regular pulse. Abdomen: Nondistended. Extremities: Right lower extremity exam is tender to palpation of the hip. He is able to move his ankle dorsiflexion, plantar flexion. He does not have any sensation to the foot. He has a very faint PT pulse. RADIOGRAPHS: Radiographs of the right hip show an intertrochanteric fracture that does not have much displacement. ASSESSMENT: Right hip intertrochanteric fracture. PLAN: Discussed with Mr. Sage about his hip fracture. We will need to fix this with trochanteric femoral nailing, but he does need dialysis. His potassium has been 6.1, and he had a cardiac episode down in the ER. So, he will probably need hemodialysis before operative intervention. He will probably get his hemodialysis today, and will plan on doing his surgery tomorrow morning. He is nonweightbearing right lower extremity. cc: MD Ever Holloway MD
[2019-01-31] MEDS ORDERED: TIGHT: 0.2 ML/HR FOR DIALYSIS MISC PRN (08:23)
[2019-01-31] MEDS ORDERED: NS 2,000 ML MISC PRN (08:23)
[2019-01-31] MEDS ORDERED: HEPARIN IV PRN (08:23)
[2019-01-31] MEDS ORDERED: MORPHINE IV ONE (08:34)
[2019-01-31] MEDS: COREG PO SCH ×2 (08:35→21:53)
[2019-01-31] MEDS: PHOSLO PO SCH ×2 (08:35→21:53)
[2019-01-31 08:38] LABS: ALBUMIN 3.2 g/dL (3.5-5.0); CALCIUM 8.7 mg/dL (8.8-10.2); CREATININE 6.9 mg/dL (0.7-1.2); POTASSIUM 6.7 mmol/L (3.5-5.1)
[2019-01-31] MEDS: NS 1,000 ML IV SCH (13:31)
--- NOTE | 2019-01-31 13:48 | NEPHROLOGY CONSULTATION ---
DATE: 01/31/2019 REASON FOR ADMISSION: Right hip fracture. REASON FOR CONSULTATION: Chronic kidney disease 5 D, assist with management. CONSULTING PHYSICIAN: Dr. Willett. HISTORY OF PRESENT ILLNESS: This is an 88-year-old gentleman well known to our service for end- stage renal disease, who routinely dialyzes on a Saturday, Saturday, Saturday schedule. He was getting ready to go to dialysis yesterday when he suffered a fall with a fracture to his right hip. In the emergency room, he had 2 episodes of decreased responsiveness with bradycardia. He did have an episode of CPR with almost immediate recovery. The patient was originally admitted to the fourth floor, but was moved down to the intensive care unit secondary to these issues. The patient has really had no pain medication overnight because of concern of respiratory depression. When I see him, he is writhing in pain and crying and begging for something for pain. The patient was noted to have a potassium of 6.1 on admission. He was treated with insulin D 50, calcium and albuterol. He was given a dose of Kayexalate, but did not have a bowel movement. This morning, potassium 6.7. We will plan to dialyze him today. The patient is to go to surgery tomorrow from our understanding. PAST MEDICAL HISTORY: CKD 5 D Saturday, Saturday and Saturday. Systolic/diastolic heart failure, history of myocardial infarction, coronary artery disease, anemia of chronic disease, GERD, osteoarthritis, diabetes, gout, hyperphosphatemia and hypertension. SURGICAL HISTORY: He has an AV fistula left upper extremity. ALLERGIES: No known drug allergies. HOME MEDICATIONS: Listed as Prilosec, Coreg, Effexor, allopurinol, ascorbic acid, calcium acetate, vitamin B 12, mirtazapine, Desyrel, simvastatin, Tylenol, Zithromax, albuterol. FAMILY HISTORY: Hypertension, diabetes. SOCIAL HISTORY: ; he still lives at home with his . He has a sitter who stays around the clock. No EtOH, tobacco or illicit drug use currently. 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 He is quite a stalwart patient. REVIEW OF SYSTEMS: See pertinent positives noted above in HPI. PHYSICAL EXAMINATION: Vital Signs: Temperature 98.0 degrees, pulse 63, respiratory rate 18, blood pressure 90/19. Intake 1.4 L; output not measured. General: This is an elderly gentleman resting in bed. He is in modest distress secondary to pain, writhing in the bed, actually crying. HEENT: Normocephalic, atraumatic. MELODY. Neck: Supple. There is no JVD. Cardiovascular: Regular rate and rhythm with a gallop. Pulmonary: He is clear bilaterally. He has no increased work of breathing. Abdomen: Soft. Positive bowel sounds. : Not inspected. Extremities: His left lower extremity with no edema. The right lower extremity is internally rotated and shortened. Positive pulses. Warm to touch. Integumentary: Skin is warm and dry. Neurologic: Grossly nonfocal otherwise. LAB DATA: WBC of 11.4, hemoglobin 10.9. Sodium 133, potassium 6.7, CO2 24. BUN 78, creatinine 6.9, calcium 8.7, phosphorus 6 and albumin 3.2. ASSESSMENT AND PLAN: 1. Chronic kidney disease 5 D. We will dialyze him on a 2 potassium bath/ultrafiltration to his dry weight 3-1/2 hour treatment. Continue his routine dialysis; his next planned dialysis will be Saturday. 2. Fluid volume status. He has had intravenous fluids running at 100 mL all night. I will change this down to 30 mL so he does not become overloaded, and we will try to achieve dry weight today during dialysis. 3. Right hip fracture. He has been seen by Dr. Owusu. He is to go to surgery tomorrow. 4. Pain control. I would prefer to defer to his primary and Surgery for this; however, because of the patient's current outstanding needs, I will give a 1-time dose of morphine 2 mg. 5. Electrolytes, acid-base balance. Again, he is on a 2 potassium bath. 6. Anemia. Hemoglobin is acceptable. If it drops further, we will need to restart Procrit. Dictated by LEYDA Campos for Curtis Rice MD cc: MD Ever Valentine MD
[2019-01-31] MEDS: MORPHINE IV PRN ×2 (17:18→23:06)
--- NOTE | 2019-01-31 17:31 | PROGRESS NOTE ---
DATE: 01/31/2019 SUBJECTIVE: Mr. Sage fell and sustained an acute right intertrochanteric femoral neck fracture. He continues with persistent pain. The hip pain is exacerbated by any sort of movement. He is tentatively scheduled for surgery in the morning as he underwent dialysis today given the refractory hyperkalemia. He is awake and easily arousable. He reports that he is breathing comfortably. His O2 saturations are ranging from 98 to 100% on 3 L of O2 per nasal cannula. He denies any chest pain, palpitations, or anginal equivalents. His chest x-ray on admission demonstrated left lower lobe atelectasis. Blood sugars are ranging from 92 to 187. OBJECTIVE: Vital Signs: Temperature 98, pulse 63, respiratory rate 10. BP 121/51. CV: Regular rate and rhythm. Lungs: Clear. Abdomen: Soft, nontender, with active bowel sounds. There is no hepatosplenomegaly. LABS: Various laboratory studies were obtained. A BMP demonstrated the following. Sodium 133, potassium 6.7, chloride 96, BUN 78, creatinine 6.9. CBC demonstrated a white count of 11.43, hemoglobin 10.9, hematocrit 35.9 and a platelet count of 196,000. ASSESSMENT AND PLAN: 1. End-stage renal disease on chronic dialysis. He normally dialyzes on Saturday, Saturday, Saturday. He had persistent and refractory hyperkalemia. He underwent dialysis today. We will recheck a BMP in the morning. 2. Type 2 noninsulin-dependent diabetes mellitus. We will continue him on pattern sugars and a Humulin R sliding scale. 3. Hypertension. His blood pressure is stable on Coreg 25 mg b.i.d. 4. Acute intertrochanteric fracture of the right hip. We will use morphine 2 mg IV q.3 hours p.r.n. pain. Hopefully, the hyperkalemia will resolve after dialysis and we can proceed with surgery in the morning. cc: MD Ever Adler MD
[2019-02-01] MEDS: PRILOSEC PO SCH (06:14)
[2019-02-01 06:42] LABS: HEMATOCRIT 33.2 % (42.0-52.0); HEMOGLOBIN 9.9 g/dL (14.0-18.0); MCH 31.3 PG (27-31); MCHC 29.8 g/dL (33-37); MCV 105.1 FL (81-99); MPV 11.5 FL (7.4-10.4); RBC 3.16 XMIL (4.7-6.1); RDW 14.2 % (11.5-14.5); WBC 9.11 X1000 (4.8-10.8)
[2019-02-01 06:54] LABS: ALBUMIN 3.3 g/dL (3.5-5.0); CALCIUM 8.4 mg/dL (8.8-10.2); CREATININE 5.5 mg/dL (0.7-1.2); PHOSPHORUS 5.5 mg/dL (2.7-4.5); POTASSIUM 5.3 mmol/L (3.5-5.1)
--- NOTE | 2019-02-01 07:18 | PROGRESS NOTE ---
DATE: 02/01/2019 SUBJECTIVE: Mr. Sage is lying in bed this morning. Overall feeling okay. He is having a little bit of shoulder pain and some right hip pain. OBJECTIVE: Right lower extremity exam, he is still able to dorsiflex, plantar flex his right lower extremity. He has decreased sensation to the foot and tenderness to palpation to the hip. The right hip was marked as correct surgical site. ASSESSMENT: Right intertrochanteric hip fracture. PLAN: Mr. Sage got dialyzed yesterday. His labs look a lot better. It looks like the primary teams are okay with him going to surgery today, so we will plan on a right trochanteric femoral nailing today. He is NPO this morning. We will get everything set. cc: MD Ever Holloway MD
[2019-02-01] MEDS ORDERED: KEFZOL 1 GM/D5W 1 GM/50 ML IVPB ONE (08:04)
[2019-02-01] MEDS ORDERED: KETAMINE ONE (08:14)
--- NOTE | 2019-02-01 09:26 | OPERATIVE NOTE ---
PROCEDURE DATE: 02/01/2019 PREOPERATIVE DIAGNOSIS: Right intertrochanteric hip fracture. POSTOPERATIVE DIAGNOSIS: Right intertrochanteric hip fracture. PROCEDURE PERFORMED: Right trochanteric femoral nailing. SURGEON: Dr. Giuseppe Owusu. LABOR CONCILIATOR: None. ANESTHESIA: General with endotracheal intubation. ESTIMATED BLOOD LOSS: 100 mL. IMPLANTS: Synthes 11 x 420 trochanteric femoral nail with a 105 helical blade. DISPOSITION: To PACU, hemodynamically stable. INDICATION FOR PROCEDURE: Mr. Sage is an 88-year-old male who fell on 01/30/2019 and fractured his right hip. He was admitted to the ICU. He received dialysis yesterday since his potassium was running really high, and so we waited until today, 02/01/2019, to do his surgery. I went over with him, the procedure, risks, benefits, and potential complications. He expressed understanding and wished to proceed. DESCRIPTION OF PROCEDURE: Mr. Sage was identified in the ICU. Right hip was marked out as correct surgical site. He was then wheeled to the operating room, kept supine on his own bed. He was induced under general anesthesia. He was then moved to the traction bed. Some slight traction was placed on that right hip. Right lower extremity was then prepped with chlorhexidine gluconate scrub and then ChloraPrep, and draped in the normal sterile fashion. Surgical pause was performed. We identified the correct patient, correct side, and the correct procedure. Preop antibiotics were given. We started with fluoroscopic imaging. Reduction was confirmed fluoroscopically with AP and lateral views. I then made an incision just proximal to the greater trochanter. Dissection was carried down through the deep fascia. I got my starting position with my guidewire. It looked good on AP and lateral views. I used my opening reamer, and then he did have a pretty large canal, so we ended up sizing it to 420 in length. We put an 11 x 420 nail in. I then made an incision down the midthigh laterally. I put the helical blade in, got my guidewire center-center in the head in both AP and lateral views. We then sized the helical blade to 105. We drilled and then put the helical blade in, locked it into place proximally, and then took the whole outrigger off. Overall alignment looked really good. He had good reduction of his fracture and good position of our hardware. I decided not to put a distal interlocking screw in secondary to him having a completely intact lateral wall. Final images were taken, AP and lateral view of the hip and AP of the knee. I then closed his wounds in a layered fashion, 0 Vicryl for the deep layer, 2-0 Vicryl for the subcutaneous, and dale on the skin. Adaptic, 4x4s, and an island dressing was applied. He was then awoken from general anesthesia, moved to his own bed, and taken back to the ICU in stable condition. He will be weight bear as tolerated on the right lower extremity. He can mobilize as needed, and will continue to follow. cc: MD Ever Holloway MD
[2019-02-01] MEDS: COREG PO SCH ×2 (09:54→20:53)
[2019-02-01] MEDS: PHOSLO PO SCH ×2 (09:55→20:53)
--- NOTE | 2019-02-01 10:03 | NEPHROLOGY PROGRESS NOTE ---
DATE: 02/01/2019 SUBJECTIVE: Patient is immediately post right trochanteric femoral nailing. He is still under the influence of his anesthesia as he remains in the recovery period at this time. OBJECTIVE: Vital Signs: Temperature 98.7 degrees, pulse 69, respiratory rate 13, blood pressure 116/42. Intake 1.7 L. Output 2.5 L. General: This is an elderly gentleman resting in bed. He is still sedated. HEENT: Normocephalic, atraumatic. His oral mucosa is dry. Neck: Supple. No JVD. Cardiovascular: Regular rate and rhythm. Pulmonary: No increased work of breathing. He is on O2 supplementation via nasal cannula. Abdomen: Soft, with positive bowel sounds. : Not inspected. Extremities: No edema. Integumentary: Skin is warm and dry. Lab Data: WBC of 9.1, hemoglobin 9.9 (10.9). Sodium 137, potassium 5.3, CO2 26, creatinine 5.5. ASSESSMENT AND PLAN: 1. Endstage renal disease. His normal dialysis is Saturday, Saturday, Saturday. We dialyzed him yesterday secondary to refractory hyperkalemia so they could go to surgery today. His potassium was in acceptable range for this. We will plan to dialyze him again in the morning on his regular routine. Check his labs in the morning to determine his dialysis bath. 2. Anemia. Restarted his EPO. His hemoglobin was down to 9.9 prior to surgery this morning. I anticipate it will be a little bit lower tomorrow. 3. Hypertension, controlled. 4. Intertrochanteric fracture of the right hip, followed by primary and surgery. Dictated by LEYDA Campos for Curtis Rice MD cc: MD Ever Valentine MD
--- NOTE | 2019-02-01 12:23 | PROGRESS NOTE ---
DATE: 02/01/2019 SUBJECTIVE: Mr. Sage underwent a successful right trochanteric femoral nailing this morning. He remains in sinus rhythm. He rates his pain as a 5 out of 10. OBJECTIVE: Vitals: He is maintaining O2 saturations of 99 to 100 percent. Blood pressure is stable. He is afebrile. Pulse 70, respirations 13, blood pressure 111/44. CARDIOVASCULAR: Regular rate and rhythm. Lungs: Clear. Abdomen: Soft, nontender with active bowel sounds. ASSESSMENT AND PLAN: 1. Right trochanteric femoral neck fracture, status post intertrochanteric nailing. We will consult Physical Therapy to begin mobilization tomorrow. We will consult Production Worker to help arrange for short-term rehab. 2. Hypertension. His blood pressure is stable on Coreg. 3. End-stage renal disease. He dialyzes on Saturday, Wednesdays and Fridays. He is scheduled for dialysis tomorrow. cc: MD Ever Adler MD
[2019-02-01] MEDS: NS 1,000 ML IV SCH (14:00)
[2019-02-02] MEDS ORDERED: NS 2,000 ML MISC PRN (05:50)
[2019-02-02] MEDS ORDERED: HEPARIN IV PRN (05:50)
[2019-02-02] MEDS ORDERED: TIGHT: 0.2 ML/HR FOR DIALYSIS MISC PRN (05:50)
[2019-02-02] MEDS: PRILOSEC PO SCH (06:14)
[2019-02-02 06:38] LABS: HEMATOCRIT 30.4 % (42.0-52.0); HEMOGLOBIN 9.2 g/dL (14.0-18.0); MCH 31.7 PG (27-31); MCHC 30.3 g/dL (33-37); MCV 104.8 FL (81-99); MPV 11.7 FL (7.4-10.4); RBC 2.9 XMIL (4.7-6.1); RDW 13.9 % (11.5-14.5); WBC 8.34 X1000 (4.8-10.8)
[2019-02-02 07:08] LABS: CALCIUM 8.1 mg/dL (8.8-10.2); CREATININE 6.5 mg/dL (0.7-1.2); PHOSPHORUS 5.9 mg/dL (2.7-4.5); POTASSIUM 5.4 mmol/L (3.5-5.1)
--- NOTE | 2019-02-02 08:08 | EKG Report ---
Test Performed on : 01/30/2019 12:49:36 PM Test Reason : ED. NO EKG ORDER FOR MUSE Blood Pressure : / mmHG Vent. Rate : 080 BPM Atrial Rate : 080 BPM P-R Int : 218 ms QRS Dur : 206 ms QT Int : 484 ms P-R-T Axes : 057 -64 104 degrees QTc Int : 558 ms Sinus rhythm. with 1st degree AV block. Left axis deviation Nonspecific intraventricular block Lateral infarct , age undetermined Inferior infarct , age undetermined Abnormal ECG When compared with ECG of 26-JAN-2019 14:02, (Unconfirmed) Sinus rhythm. has replaced Electronic atrial pacemaker Nonspecific intraventricular block has replaced Left bundle branch block Lateral infarct is now present Inferior infarct is now present Unconfirmed Result
[2019-02-02] MEDS: COREG PO SCH ×2 (08:09→21:51)
[2019-02-02] MEDS: PHOSLO PO SCH ×2 (08:09→21:50)
[2019-02-02] MEDS: EPOGEN SUBQ SCH (08:09)
--- NOTE | 2019-02-02 08:32 | PROGRESS NOTE ---
DATE: 02/02/2019 SUBJECTIVE: Mr. Sage was sitting up in his bed this morning eating his breakfast. Overall, he is doing okay. OBJECTIVE: Right lower extremity exam. Dressing is clean, dry, and intact. He has good dorsiflexion and plantar flexion of the foot. ASSESSMENT: Status post right trochanteric femoral nailing. PLAN: Mr. Sage is okay to be weightbearing as tolerated right lower extremity. Physical Therapy can start working to get him up moving and walking. Orthopedics will continue to follow. cc: MD Ever Holloway MD
--- NOTE | 2019-02-02 11:41 | NEPHROLOGY PROGRESS NOTE ---
DATE: 02/02/2019 SUBJECTIVE: Mr. Sage is resting quietly in bed. Head of the bed is elevated. He is in no acute distress. OBJECTIVE: Vital signs: Temperature 97.8 degrees, blood pressure 134/54, heart rate 68, respirations 15. He is on 5 L nasal cannula. Last recorded saturation 100%. He has had 1130 in he has had 110 mL out to EBL. LABORATORY DATA: Sodium 136, potassium 5.4, chloride 96, CO2 23, BUN 67, creatinine 6.5, glucose 104. His anion gap is 17, calcium 8.1, phosphorus 5.9, albumin is 3. White count 8.34, hemoglobin 9.2, hematocrit 30.4, platelet count 184,000. PHYSICAL EXAMINATION: General: This is an 88-year-old white male who is currently resting quietly in bed. Head of the bed is elevated. He appears chronically ill though no acute distress. Skin: Warm and dry. HEENT: Normocephalic, atraumatic. Conjunctiva is pale pink. He has MELODY. Mucous membranes are dry. Neck: Supple. Trachea midline. No evidence of JVD. Cardiovascular: He is regular rate and rhythm on the monitor; no appreciable murmur or gallop. Lungs: Clear to auscultation anteriorly equal excursion on O2. Abdomen: Soft, nontender. Positive bowel sounds with trace hip edema. Genitourinary: Not inspected. Minimal void with dialysis assist. Extremities: Have no edema. No clubbing or cyanosis. Neurological: As above. Alert to person and place. ASSESSMENT AND PLAN: 1. Chronic kidney disease stage 5D. The patient is due for his routine dialysis treatment today. We will place him on a 2 K bath. He is to dialyze for 3.5 hours. We will attempt to pull patient to his outpatient dry weight. 2. Electrolytes, acid-base balance and anemia. These are all acceptable. 3. Hip fracture followed by Dr. Owusu. Dressing is dry and clean intact to right hip. I would like to thank you for allowing us to follow with this patient. Dictated by LEYDA Vo for Curtis Rice MD Face to face encounter, data reviewed, discussed with Clovis Wei on 02/02/19. I agree with the above assessment and plan of care. cc: LEYDA Vo MD Russell T. Barr, MD MTDD
[2019-02-02] MEDS: NS 1,000 ML IV SCH (18:27)
[2019-02-03] MEDS: OXY IR PO PRN (00:59)
[2019-02-03 06:27] LABS: HEMATOCRIT 28.9 % (42.0-52.0); HEMOGLOBIN 8.5 g/dL (14.0-18.0); MCH 31.3 PG (27-31); MCHC 29.4 g/dL (33-37); MCV 106.3 FL (81-99); MPV 11.4 FL (7.4-10.4); RBC 2.72 XMIL (4.7-6.1); RDW 14.1 % (11.5-14.5); WBC 9.02 X1000 (4.8-10.8)
[2019-02-03 06:43] LABS: CALCIUM 8.1 mg/dL (8.8-10.2); PHOSPHORUS 3.6 mg/dL (2.7-4.5)
[2019-02-03] MEDS: PRILOSEC PO SCH (06:55)
--- NOTE | 2019-02-03 07:29 | Diag Imaging Result Doc PS360 ---
EXAM: CHEST-PORTABLE INDICATION: CODE BLUE TECHNIQUE: One view COMPARISON: 01/30/2019 FINDINGS: There has been interval placement of an ET tube. The tip projects over the trachea and above the alondra at about the T4-5 level. There is stable elevation of the right hemidiaphragm. Electrode pads project over the left chest wall. The retrocardiac opacity seen on the previous study has grossly resolved. No new consolidations are identified. Cardiac silhouette is stable. IMPRESSION: Resolution of the opacity at the left lung base in the retrocardiac region and interval placement of an ET tube. Electronically signed by Jaleel Meraz 02/03/2019 7:27 AM
--- NOTE | 2019-02-03 07:37 | PROGRESS NOTE ---
DATE: 02/03/2019 SUBJECTIVE: I entered the room of Mr. Sage this morning at about 7:21. The code team was in there. Apparently, he had coded this morning when he began to choke on something he was eating. Code team did state he did lose his pulse for about a minute. They had started chest compressions and then got the pulse back after about a minute. He was on bag ventilation during the code. ASSESSMENT: Status post right trochanteric femoral nailing. PLAN: Mr. Sage is going to be going back down to the ICU. The ICU team will take over his medical care there. From an orthopedic standpoint, we will remain available but his medical issues take precedence at this point. He can be mobilized as tolerated concerning his right hip. cc: MD Ever Holloway MD
[2019-02-03] MEDS ORDERED: EPINEPHRINE SYRINGE ONE (08:15)
--- NOTE | 2019-02-03 08:40 | PROGRESS NOTE ---
DATE: 02/03/2019 SUBJECTIVE: A patient of Dr. Ever Willett. He fell at home, had a right hip fracture. 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 He was at home preparing for hemodialysis session when he went to the bathroom, bent over to diamond picker a roll of toilet paper that had fallen, lost his balance and fell, hit his right hip, brought in by EMS. He had episodes of decreased responsiveness while he was in the emergency room. Some bradycardia and hypoxemia, seemed to lose his pulse. He actually had CPR for awhile in the emergency room. Physician was hesitant to give him any narcotics for pain with possible respiratory depression. He was examined for a few minutes and became more talkative. PAST MEDICAL HISTORY: 1. Longstanding diabetes mellitus type 2. 2. Hypertension. 3. End-stage renal disease on hemodialysis for approximately 2 years. He goes to [facility] on Mondays, Wednesdays, and Fridays. 4. He has a history of systolic and diastolic heart failure, previous myocardial infarctions, coronary artery disease, anemia of chronic renal disease, esophageal reflux and esophagitis. HOSPITAL COURSE: So, he had a right intertrochanteric femoral neck fracture. Nephrology has been following. Dr. Owusu was consulted. It looks like he underwent surgery for hip repair in January 2017 with right intertrochanteric hip fracture and femoral nailing. He has been receiving dialysis, and apparently 02/02 he was tolerating some weightbearing therapy. Chest x-ray on 02/03: Resolution of opacity in the left lung base retrocardiac region. Interval placement of ET tube. So, this morning he was apparently taking some medicine. They said he was taking some Prilosec which appeared to get choked on the medicine and then became unresponsive and was not breathing, agonal breathing. Blood pressure went down. He has a paced rhythm. He got CPR chest compressions for maybe 2 to 3 minutes, given 1 amp of epi. OBJECTIVE: General: He was intubated and moved down to ICU. Vital Signs: In the ICU his blood pressures remained around 120/70, pulse was 80 to 110, respirations 17. Intubated. He appears comfortable at this time. He was agitated and did have some restraints for a short time. Lungs: Anterior lateral sound clear. Cardiovascular exam: Regular rhythm. Monitor shows paced rhythm. Abdomen: Soft. There josy some excoriations where it appears he has been scratching his abdomen. Extremities: No pedal edema. LABS: Lab from yesterday reviewed. Hematocrit 30, hemoglobin 9 which was stable, white count 8340, platelet count 184,000. Chemistries: Sodium 140, potassium 4.0, chloride 102. BUN 40, creatinine 5.0. Blood sugars have been 279, 155, 210. Albumin 3.0. ASSESSMENT AND PLAN: 1. Status post right trochanteric femoral neck fracture, status post intertrochanteric nailing. Was doing well with physical therapy. He had what sounds like primary respiratory code this morning. I am not sure if he choked on medication. He had apparently a wide complex, but he had a paced rhythm. We will check electrolytes. Check his chest x-ray. Ask Pulmonary to help. 2. Hypertension. 3. End-stage renal disease. Gets dialysis Mondays, Wednesdays, and Fridays. His electrolytes and volume status look good. We will repeat a chest x-ray and have him get a set of troponin and CK. ProBNP. Review of his orders: He is not on any anticoagulant at this point. He is getting Coreg 25 mg b.i.d. He is on calcium acetate 667 mg b.i.d., oxycodone IR 5 mg q. 3 hours, Prilosec 20 mg a day. cc: MD Ever Centeno MD
--- NOTE | 2019-02-03 09:08 | NEPHROLOGY PROGRESS NOTE ---
DATE: 02/03/2019 TIME SEEN: 0640 hours. SUBJECTIVE: Mr. Sage is resting in bed. He states that he is feeling much better. He states that his jerking motions have improved. OBJECTIVE: His most recent vital signs: Temperature 98.6 degrees, blood pressure 122/69, heart rate 80, respirations 16. He has had 517 in and 2300 off on dialysis yesterday. LABS: Sodium 140, potassium 4, chloride is 102, CO2 24. BUN 40, creatinine 5, glucose 155. His anion gap is 14, calcium 8.1, phosphorus 3.6, albumin is 3. Previous hemoglobin 9.2. PHYSICAL EXAMINATION: General: This is an 88-year-old white male. He is currently resting quietly in bed. He appears in no acute distress. Skin: Warm and dry. HEENT: Normocephalic, atraumatic. Conjunctiva is pale pink. He has MELODY. Mucous membranes are dry. Neck: Supple. Trachea midline. No evidence of JVD. Cardiovascular: He is regular rate and rhythm. He has an S4 present. Lungs: Clear to auscultation bilateral. Equal excursion on room air. Abdomen: Soft, nontender. Positive bowel sounds. Genitourinary: Not inspected. Minimal void with dialysis assist. Extremities: He has just trace edema to his right hip. No lower extremity edema. Fistula remains intact to the left upper arm. He does have some shoulder discomfort upon manipulation to the right upper shoulder area. Integumentary: As mentioned with a dressing intact to the right hip. Neurological: Alert to person and to place and most recent events. ASSESSMENT AND PLAN: 1. Chronic kidney disease stage 5 D. The patient had his routine dialysis treatment yesterday. He tolerated this well. No plans for dialysis until the morning per his routine prescription. 2. Electrolytes and acid-base balance. These are acceptable. 3. Anemia. This remains low, but acceptable. 4. Hip fracture followed by Dr. Owusu. Dressing is dry and intact. No drainage present to the right hip. I would like to thank you for allowing us to follow with this patient. Dictated by LEYDA Vo for Curtis Rice MD Face to face encounter, data reviewed, discussed with Clovis Wei on 02/03/19. I agree with the above assessment and plan of care. cc: LEYDA Vo MD Russell T. Barr, MD MTDD
[2019-02-03 09:32] LABS: ALB/GLOB RATIO 1.1; ALBUMIN 3.3 g/dL (3.5-5.0); CALCIUM 8.1 mg/dL (8.8-10.2); POTASSIUM 4.4 mmol/L (3.5-5.1); TOTAL BILIRUBIN 0.44 mg/dL (0.20-1.00); TOTAL PROTEIN 6.4 g/dL (6.3-8.3)
[2019-02-03] MEDS: MORPHINE IV PRN ×5 (11:00→22:58)
[2019-02-03 11:21] LABS: ALLEN TEST YES; BE -1.9 mmoll (-3.0-3.0); BLOOD TYPE ARTERIAL; HCO3-(ACT) 23.4 mmoll (20.0-26.0); METHB 1.3 % (0.0-1.5); O2HB 95.9 % (95.0-99.0); PCO2(98.6) 43 mmHg (35-45); PO2(98.6) 116 mmHg (60-100); SAMPLE BLOOD; SAO2 99.2 % (95.0-100.0); SRATE 18 BPM; TVOL 500 mL; pH(98.6) 7.35 (7.35-7.45)
[2019-02-03 11:22] LABS: MODALITY VENTILATOR
[2019-02-03 14:31] LABS: ALLEN TEST YES; BE -2.3 mmoll (-3.0-3.0); BLOOD TYPE ARTERIAL; HCO3-(ACT) 23.1 mmoll (20.0-26.0); METHB 1.3 % (0.0-1.5); O2(CT) 14.5 mL/dL (15.0-23.0); O2HB 96.1 % (95.0-99.0); PCO2(98.6) 45 mmHg (35-45); PO2(98.6) 138 mmHg (60-100); SAMPLE BLOOD; SAO2 99.5 % (95.0-100.0); THB 10.5 g/dL (11.5-17.4); pH(98.6) 7.33 (7.35-7.45)
[2019-02-03 14:32] LABS: MODALITY VENTILATOR
[2019-02-03] MEDS: PHOSLO PO SCH ×2 (15:04→20:34)
--- NOTE | 2019-02-03 15:23 | CARDIOLOGY CONSULTATION ---
DATE: 02/03/2019 REASON FOR CONSULTATION: Cardiology was consulted for cardiac arrest. 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 EMS was called and was brought to the emergency room. While he was in the emergency room patient became unresponsive, had agonal breathing. CPR was started and following which patient recovered. He was given atropine and epi. The patient was admitted and underwent hip surgery on the with nailing of intertrochanteric head. The patient was recuperating on the floor when today he had an episode where he had another code blue was called overhead. Patient was sitting up and then patient became cyanotic, lost pulse, chest compressions were started. A dose of epi was again administered. Patient was subsequently intubated and transferred to the ICU. During this episode his telemetry scan did not reveal any dysrhythmias. He has a permanent pacemaker with [employer] device which was again interrogated recently and that is functioning appropriately. The patient is intubated is responding to questions. His vital signs are stable at the present time. REVIEW OF SYSTEMS: Could not be obtained from the patient. PAST MEDICAL HISTORY: 1. Was obtained from the chart. 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 2. Acute myocardial infarction status post stent placement to the left anterior descending artery 11/27/2013. 3. COPD. 4. Diastolic heart failure. 5. Pulmonary arterial hypertension. 6. Hypertension. 7. Peripheral vascular disease. 8. 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 9. Gastroesophageal reflux disease. 10. Other surgeries include right knee replacement, stent in his left arm. 11. Left foot surgery. SOCIAL HISTORY: Is , retired. PHYSICAL EXAMINATION: Blood pressure 126/82. Patient is intubated. Jugular venous pressure could not be assessed. First and second heart sounds were heard. There was faint systolic murmur. Respiratory: Coarse breath sounds and rhonchi. Abdomen: Was soft, nontender. Some ecchymosis bruising was noted in the right flank area. Central nervous system: Could not be assessed however patient was moving all extremities. ASSESSMENT AND PLAN: Mr. Yobani Sage is an 88-year-old gentleman with history of hypertension, end-stage renal disease on dialysis, diabetes, myocardial infarction in the past with stent placement to the left anterior descending artery, gastroesophageal reflux disease, sick sinus syndrome status post [employer] device implanted is admitted with fracture. Underwent pinning of the right trochanter. The patient while he was in the emergency room had an episode of syncope as described above. In addition, today he had an episode of being cyanotic and unresponsive. Cardiopulmonary resuscitation was performed. Had a cardiac arrest and subsequently intubated and transferred to the ICU. 1. Patient does not complain of any chest pain at the present time. However is intubated and sedated. 2. Given these 2 episodes which occurred which were witnessed with cyanosis as well and the fact that the pacemaker was checked and telemetry revealed appropriate pacemaker function as well during this episode, will make sure that there is no pulmonary embolism. We will set him up to undergo a CT scan of his lungs to rule out a PE and also he has a drop in hemoglobin and hematocrit with minimal blood loss during surgery. We will make sure that there is no significant bleeding in the surgical site and in the flank as well. 3. Given this episode his family states that he did have episodes of low blood pressure at home, he was on Coreg 25 mg twice a day. We will discontinue the Coreg for the present and restart at a lower dose of beta blockers once he can take p.o. medications. 4. Continue with current management. Thank you for the consult. We will follow hospital course. 5. In addition, we will get an echocardiogram to reassess cardiac and valvular function. cc: MD Ever Londono MD
--- NOTE | 2019-02-03 15:25 | EKG Report ---
Test Performed on : 02/03/2019 07:18:10 AM Test Reason : ER Blood Pressure : / mmHG Vent. Rate : 099 BPM Atrial Rate : 104 BPM P-R Int : 000 ms QRS Dur : 206 ms QT Int : 452 ms P-R-T Axes : 000 -71 104 degrees QTc Int : 580 ms Sinus tachycardia. with AV dissociation. and Wide QRS rhythm. with premature supraventricular complex es. and with frequent premature ventricular complexes. Left axis deviation Left bundle branch block Abnormal ECG When compared with ECG of 30-JAN-2019 12:49, (Unconfirmed) Wide QRS rhythm. has replaced Sinus rhythm. Unconfirmed Result
--- NOTE | 2019-02-03 16:19 | Diag Imaging Result Doc PS360 ---
EXAM: CT ABD/PELVIS/PULM ARTERIES 02/03/2019 HISTORY: hypoxia, s/p surgery,r/o hematoma rt hip TECHNIQUE: This exam was performed using automated exposure control, adjustment of mA or kV according to patient size, and/or use of iterative reconstruction technique. COMMENT: Thorax: 3-D MIPS were performed. There are no filling defects in the pulmonary arteries. There is an endotracheal tube with its tip in the right mainstem bronchus. There are calcifications in the thoracic aortic arch and brachiocephalic vessels without evidence of aneurysm or dissection. There is a small left pleural effusion and slightly larger right pleural effusion. Compared to the previous study of 11/01/2017 the effusions were not present previously normal was the secondary compressive atelectasis which is primarily seen in the right lower lobe. There is some minimal dependent atelectasis in the left lower lobe. There is cardiomegaly with left ventricular enlargement and left atrial enlargement. There is extensive coronary calcification. There is severe degenerative changes in the right shoulder joint. There are degenerative disc changes in the thoracic spine. There are fractures of the right fourth through ninth ribs anterolaterally. This was not the case at the time the previous study. ABDOMEN: The current study is compared with the previous study of 11/01/2017. There are granulomata in the liver. The aorta is calcified but there is no evidence of aneurysm. There is an accessory right renal artery. The left gastric artery arises independently from the aorta and the celiac and superior mesenteric artery are a single trunk. There is no evidence of hydronephrosis or nephrolithiasis. There are no apparent gallstones. The gallbladder is somewhat distended as it was at the time the previous study. The spleen and adrenal glands are not enlarged. There is a fairly large amount of stool in the colon. The pancreas is slightly atrophic in appearance. There is no evidence of significant adenopathy or bowel obstruction. Pelvis: There is a fair amount of solid stool in the rectosigmoid colon. There is edema in the presacral fat. There is diverticulosis of the sigmoid colon without evidence of diverticulitis. The appendix is normal in appearance. There is a bone island in the left iliac bone. There has been internal fixation of a right femoral fracture which was not present at the time the previous study. There is still some surgical skin clips laterally and there are small amounts of gas present in the anterior gluteal region. No large fluid collections are demonstrated. There is some deformity of the inferior pubic ramus on the right which was not present previously. This may be fractured both anteriorly and posteriorly. IMPRESSION: 1. Endotracheal tube in the right mainstem bronchus. 2. Pleural effusions. Atelectasis versus pneumonia particularly in the right lower lobe. 3. Fractures of multiple right ribs of uncertain age. Fractures of the inferior pubic ramus on the right. Postsurgical changes in the right hip region. 4. Constipation. The possibility of mild stercoral proctitis cannot be excluded. The findings were discussed with SRAVANI Castillo at 02/03/2019 4:16 PM. Electronically signed by Uday Garnica 02/03/2019 4:17 PM
--- NOTE | 2019-02-03 16:28 | PROGRESS NOTE ---
DATE: 02/03/2019 SUBJECTIVE: He was moved to the ICU this morning after he had a cardiorespiratory arrest. The report was that he swallowed some medicine and seemed to get chocked and went into agonal breathing and stopped breathing, unconscious, and no pulse. He got CPR for I think 2 to 3 minutes and 1 dose of epinephrine, came back sinus rhythm. Pacemaker seems to be functional. OBJECTIVE: Temperature 98.2 degrees, pulse 74, respirations 20, blood pressure 130/68. Pupils are equal and round. He is on the ventilator. He appears to be comfortable. His eyes are open. Seems to understand the communication to him and moving all extremities well. LABORATORY STUDIES: From this morning, white count 9020, hematocrit 28, platelet count 165,000. Chemistry: Sodium 140, potassium 4.4, chloride 99, BUN 42, creatinine 5.0. Blood sugars have been 155, 210, and 248. ASSESSMENT AND PLAN: 1. He has a history of hypertension, end-stage renal disease on dialysis, history of diabetes, history of myocardial infarction in the past with a stent placement in left anterior descending artery, history of gastroesophageal reflux disease, sick sinus syndrome. He has a pacemaker, a [employer] device implanted. He was admitted with a hip fracture. Has a right trochanteric nail and had cardiopulmonary arrest this morning. Questionable whether he was choking on some medicine. So he has had 2 episodes of witnessed cyanosis as well as the fact that his pacemaker seems to be working appropriately so looking for possible pulmonary embolism. Will undergo a CT scan of lungs and also has had a drop in his hemoglobin and hematocrit. Of course he has had hip surgery. He had minimal blood loss during surgery though, so want to make sure there is no antonia bleeding going. 2. Family states that he did have episodes of low blood pressure at home. Coreg was at 25 mg twice a day, so I am going to discontinue the Coreg. 3. Respiratory failure on the ventilator. Lungs sound clear. He did have a pelvic and abdominal CT. Electrolytes look okay at this point and acid-base status looks good. We will check a set of troponin and proBNP. cc: MD Ever Centeno MD MTDD
[2019-02-03] MEDS: NS 1,000 ML IV SCH (18:35)
[2019-02-03] MEDS: COREG PO SCH (18:36)
--- NOTE | 2019-02-03 19:01 | PULMONOLOGY CONSULTATION ---
DATE: 02/03/2019 HISTORY OF PRESENT ILLNESS: Mr. Sage is an 88-year-old, white male with a prior history of tobacco (nonsmoker x30 years), end-stage renal disease on hemodialysis, who recently fell and was brought to the emergency room on 01/30/2019. He was diagnosed with a right hip fracture. While in the emergency room, the patient became unresponsive with agonal breathing and CPR was initiated, but he rapidly recovered. He had additional episodes of hypoxemia with unresponsiveness, but slowly recovered. The patient underwent right trochanteric femoral nailing on 02/01/2019. On the following morning, he appeared to be doing well and was eating breakfast. This morning, he was taking a Prilosec tablet when he became choked and then unresponsive. CPR was initiated and he rapidly recovered began. He was intubated and initiated on mechanical ventilation. He is now in the ICU and will nod appropriately to questions. PAST MEDICAL HISTORY/PROBLEM LIST: 1. End-stage renal disease, on hemodialysis. 2. History of systolic/diastolic heart failure. 3. Coronary artery disease with prior myocardial infarction. 4. Osteoarthritis. 5. Diabetes mellitus. 6. Status post pacemaker placement. 7. Gastroesophageal reflux disease. 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 Prior tobacco use, but not recently. FAMILY HISTORY: Positive for diabetes and hypertension. REVIEW OF SYSTEMS: Cannot be obtained. PHYSICAL EXAMINATION: General: Reveals an elderly white male on mechanical ventilation. VITAL SIGNS: Blood pressure 139/71, heart rate 72, respiratory rate 20, oxygen saturation 98%. HEENT: Pupils are equal and reactive. Oropharynx is clear. Neck: Supple. Chest: Reveals good breath sounds bilaterally. Cardiac Exam: S1-S2. Abdomen: Soft. Extremities: Reveal evidence of chronic vascular disease. LABORATORIES: Chest x-ray reveals elevation of the right hemidiaphragm with endotracheal tube in good position and no dense consolidation. Arterial blood gas on respiratory rate of 18, tidal volume 500, FiO2 50% reveals a pH 7.35, pCO2 of 43, pO2 of 116. Telemetry strips reveal a paced rhythm at around 60. IMPRESSION: An 88-year-old with: 1. Chronic paralysis of the right hemidiaphragm. 2. End-stage renal disease on hemodialysis. 3. Coronary artery disease. 4. Chronic pacemaker. He has had 2 episodes of unresponsiveness requiring cardiopulmonary resuscitation. He had one on admission to the emergency room and he had his second one this morning. It is not clear whether he has a respiratory decompensation related to his ventilatory insufficiency with the paralyzed hemidiaphragm or whether he is having a cardiac event. RECOMMENDATION: 1. Continue ventilatory support. 2. Ask Cardiology to evaluate and see if the pacemaker is capturing appropriately. 3. Consider echocardiogram. 4. CT scan of the chest, abdomen and pelvis. This has been ordered by Cardiology to rule out pulmonary emboli. TIME SPENT IN CRITICAL CARE: 30+ minutes. cc: MD Ever Levi MD
[2019-02-04] MEDS: MORPHINE IV PRN ×6 (00:34→20:19)
[2019-02-04] MEDS ORDERED: ATIVAN IV PRN (01:49)
[2019-02-04 04:46] LABS: ALLEN TEST YES; BE -3.2 mmoll (-3.0-3.0); BLOOD TYPE ARTERIAL; HCO3-(ACT) 22.4 mmoll (20.0-26.0); METHB 1.2 % (0.0-1.5); O2(CT) 16.6 mL/dL (15.0-23.0); O2HB 96.5 % (95.0-99.0); PCO2(98.6) 39 mmHg (35-45); PO2(98.6) 157 mmHg (60-100); SAMPLE BLOOD; SAO2 99.4 % (95.0-100.0); SRATE 18 BPM; TVOL 500 mL; pH(98.6) 7.36 (7.35-7.45)
[2019-02-04 04:47] LABS: MODALITY BI PAP
[2019-02-04 05:29] LABS: MAGNESIUM 2.2 mg/dL (1.5-2.7); PHOSPHORUS 4.1 mg/dL (2.7-4.5)
[2019-02-04 05:56] LABS: ALB/GLOB RATIO 1.2; CALCIUM 8.7 mg/dL (8.8-10.2); POTASSIUM 4.5 mmol/L (3.5-5.1); TOTAL BILIRUBIN 0.41 mg/dL (0.20-1.00); TOTAL PROTEIN 5.6 g/dL (6.3-8.3)
[2019-02-04] MEDS ORDERED: HEPARIN IV PRN (06:05)
[2019-02-04] MEDS ORDERED: NS 2,000 ML MISC PRN ×2 (06:05→07:07)
[2019-02-04] MEDS ORDERED: TIGHT: 0.2 ML/HR FOR DIALYSIS MISC PRN (06:05)
[2019-02-04 06:32] LABS: CREATININE 6.3 mg/dL (0.7-1.2)
[2019-02-04] MEDS: PRILOSEC PO SCH (06:51)
--- NOTE | 2019-02-04 07:13 | Diag Imaging Result Doc PS360 ---
EXAM: CHEST-PORTABLE 02/04/2019 HISTORY: respiratory failure TECHNIQUE: AP portable at 0517 COMMENT: There is an endotracheal tube with its tip just above the alondra. The inspiration is less optimal than on 02/03/2019. Considering this there has been no significant change. IMPRESSION: Poor inspiration. Electronically signed by Uday Garnica 02/04/2019 7:11 AM
[2019-02-04 08:19] LABS: HEMATOCRIT 30.8 % (42.0-52.0); HEMOGLOBIN 9.3 g/dL (14.0-18.0)
[2019-02-04] MEDS ORDERED: SODIUM CHLORIDE 0.9% INJ SCH (08:45)
--- NOTE | 2019-02-04 08:46 | NEPHROLOGY PROGRESS NOTE ---
DATE: 02/04/2019 Date seen 02/04/2019, time seen is 06:15. SUBJECTIVE: Mr. Sage is resting quietly in bed. He remains ventilator dependent. He is awake and alert. He is calm. OBJECTIVE: His most recent vital signs, temperature 98.1 degrees, blood pressure 128/77, heart rate 71, respirations 22. He is on 40% FiO2. His last recorded saturation is 100%. He has had 0 recorded in or out. LABS: Sodium 139, potassium 4.5, chloride 100, CO2 20, BUN 50, creatinine 6.3, glucose 137. His anion gap is 19, his calcium is 8.7. His phosphorus is 4.1, albumin 3, magnesium 2.2. Previous hemoglobin 8.5. ABGs pH 7.36, CO2 39, PO2 157, bicarb 22.4 on 40% FiO2. PHYSICAL EXAMINATION: General: This is an 88-year-old elderly male. He is resting quietly in bed. He is ventilator dependent. He appears chronically ill. No acute distress. Skin: Warm and dry. HEENT: Normocephalic, atraumatic. Conjunctiva is pale. He has MELODY. Mucous membranes are dry. Neck: Supple. Trachea midline. He does have trace JVD. Cardiovascular: Regular rate and rhythm. He is without murmur or gallop. Lungs: Clear to auscultation anteriorly, equal excursion. He is on ventilatory support. Abdomen: Soft, nontender, positive bowel sounds. Genitourinary: Minimal void with dialysis assist. Extremities: Have 2+ lower extremity edema, right is greater than left. Right hip has a dressing that is dry and intact. Neurological: As mentioned above. ASSESSMENT AND PLAN: 1. Chronic kidney disease stage 5D. The patient is due for his routine dialysis treatment. We will place him on SLED. He is to be on a 4 K bath q.8 hours, 27 bicarb. We will attempt to pull 4 to 6 L of ultrafiltration as tolerated. 2. Electrolytes, acid-base balance and anemia. These are all acceptable. 3. Hip fracture followed by Dr. Owusu and primary care. I would like to thank you for allowing us to follow with this patient. Dictated by LEYDA Vo for Curtis Rice MD Face to face encounter, data reviewed, discussed with Clovis Wei on 02/04/19. I agree with the above assessment and plan of care. cc: LEYDA Vo MD Russell T. Barr, MD MTDD
[2019-02-04] MEDS: NS 1,000 ML IV SCH (09:00)
--- NOTE | 2019-02-04 09:26 | PROGRESS NOTE ---
DATE: 02/04/2019 SUBJECTIVE: Mr. Sage is still on the ventilator. He appears more comfortable. They had started dialysis. He had a fairly uneventful night. Appears comfortable. He remains afebrile. OBJECTIVE: Temperature 97.9 degrees, pulse 68, respirations 19, blood pressure 150/73. Pupils are equal and round. Lungs are clear in all lung morrison. Cardiovascular Examination: Regular rhythm and rate without murmur or S3. Abdomen is soft. Skin is warm and dry. ASSESSMENT AND PLAN: 1. Chronic kidney disease stage 5D. Did get his routine dialysis. They are going to place him on sustained low-efficiency dialysis therapy with a 4 K bath for 8 hours and attempt to pull 4 to 6 L of ultrafiltration today. Electrolytes and his acid-base balance and anemia seem to be acceptable. 2. Hip fracture, followed by Dr. Owusu. We will reinitiate physical therapy. Chest x-ray from this morning, poor inspiration, endotracheal tube and tip just above the alondra, inspiration is less optimal than the x-ray on 02/03/2019, so probably no significant change. 3. Chronic paralysis of his right hemidiaphragm, respiratory arrest. Not sure if he strangled a little bit on some medicine but his lungs sound clear. Attempt to wean him off the ventilator. Followed by Dr. Anthony. 4. Coronary artery disease. 5. Chronic pacemaker. Pacemaker looks functional. Note, he has had some spells of hypotension in the past. We have decreased his Coreg. His current blood pressures look good, between 108- 171/70-103. REVIEW OF HIS MEDICATIONS: He is on calcium acetate 667 mg p.o. b.i.d., which he is not getting right now. We will stop that for now and we will switch his Protonix to IV 40 mg q.12. He is getting Ativan p.r.n. to help with the agitation of being intubated. cc: MD Ever Centeno MD
[2019-02-04] MEDS: PROTONIX IV SCH ×2 (09:46→21:46)
[2019-02-04] MEDS: EPOGEN SUBQ SCH (09:47)
--- NOTE | 2019-02-04 12:46 | ECHO REPORT ---
ORDER DATE: 02/03/2019 INTERPRETING PHYSICIAN: Dr. Muniz CLINICAL INDICATIONS: 88-year-old male with cardiac arrest, cardiomyopathy. M-MODE MEASUREMENTS: Right ventricle: cm. Left ventricle end diastole: 5.1 cm. Left ventricle end systole: 4.1 cm. Posterior wall: 1.0 cm. Interventricular septum: 1.0 cm. Left atrium: 4.7 cm. Aortic root: 3.2 cm. SUMMARY OF 2-DIMENSIONAL IMAGIN. The left ventricular chamber is dilated. The left ventricular systolic function is significantly impaired. There is atypical or paradoxical contractility of the interventricular septum. 2. The global ejection fraction is severely impaired probably in the order of 20% to 25%. I cannot come up with any better number because of the very technically challenging study. Definity was added to optimize visualization of endocardium. 3. The right ventricle appears to be moderately to significantly enlarged. 4. The left atrium is also significantly enlarged. 5. The aortic valve shows sclerosis of the cusps without stenosis. 6. The mitral valve shows moderately severe degree of regurgitation. 7. The pulmonic valve appears grossly unremarkable. 8. The tricuspid valve shows moderate degree of regurgitation. 9. The pulmonary artery systolic pressure is estimated at 63 mmHg. This is just an approximation. 10.Pacemaker leads appear to be present in the right side of the heart. 11.There is no pericardial effusion. 13.Diastolic function cannot be accurately established here because of poor visualization of the structures. SUMMARY: The study shows: 1. Dilatation of the left ventricle with severely impaired systolic function, atypical contractility of the interventricular septum. Ejection fraction of 20% to 25%. 2. Dilated right ventricle with mild global hypokinesis. 3. Significantly enlarged left atrium. 4. Moderately severe mitral regurgitation. 5. Moderate pulmonary hypertension estimated in the range of 63 mmHg. No aortic stenosis. Clinical correlation is recommended. cc: MD Brandy Preston PA Russell T. Barr, MD
--- NOTE | 2019-02-04 21:45 | PULMONOLOGY PROGRESS NOTE ---
DATE: 02/04/2019 SUBJECTIVE: The patient is arousable. He has no increased work of breathing on mechanical ventilation, but his respiratory rate is set at 18. OBJECTIVE: The patient has been afebrile. Blood pressure 146/66, heart rate 64, respiratory rate 12, oxygen saturation 100%. HEENT: Pupils are equal and reactive. Oropharynx is clear. Neck is supple. Chest reveals bibasilar crackles with decreased breath sounds, right base. Cardiac exam: S1, S2. Abdomen is soft. Extremities reveal 1+ peripheral edema. DIAGNOSTIC DATA: CT scan of the abdomen and pelvis yesterday afternoon revealed small pleural effusions; elevation of the right hemidiaphragm; fracture of the pubic ramus; multiple rib fractures; constipation. LABORATORY DATA: Arterial blood gas this morning: PH 7.36, pCO2 of 39, pO2 of 157. IMPRESSION: An 88-year-old with: 1. Cardiopulmonary arrest x2 following hip fracture, one on admission and one following repair. 2. Chronic elevation of the right hemidiaphragm. 3. Multiple rib fractures. 4. Endstage renal disease, on hemodialysis. 5. Coronary artery disease. 6. Chronic pacemaker. 7. Cardiomyopathy with decreased systolic ejection fraction of 20% to 25%. 8. Moderate pulmonary hypertension, at 63 mmHg. RECOMMENDATIONS: 1. Spontaneous breathing trial was held today pending completion of dialysis. In the afternoon it was noted that dialysis would continue until 5:00. He was successful in getting 6 L of fluid off. He will be rested overnight and a trial will be initiated in the morning to evaluate for extubation. 2. Await sputum culture results, which is currently growing sparse kiah. 3. Fluid management per Nephrology team. 4. Recommend initiation of end-of-life discussions with the family. The patient is 88 years old with renal failure, cardiomyopathy, multiple rib fractures, with acute hypoxemic respiratory failure. His prognosis is poor, and he is at significant risk for dying during this hospitalization. Time spent in critical care 30+ minutes. cc: MD Ever Levi MD
[2019-02-05] MEDS: MORPHINE IV PRN ×3 (02:15→15:00)
[2019-02-05 04:25] LABS: ALLEN TEST YES; BE -5.6 mmoll (-3.0-3.0); BLOOD TYPE ARTERIAL; HCO3-(ACT) 20.5 mmoll (20.0-26.0); METHB 1.3 % (0.0-1.5); O2(CT) 15.2 mL/dL (15.0-23.0); O2HB 95.8 % (95.0-99.0); PCO2(98.6) 35 mmHg (35-45); PO2(98.6) 118 mmHg (60-100); SAMPLE BLOOD; SAO2 98.9 % (95.0-100.0); SRATE 12 BPM; THB 11.1 g/dL (11.5-17.4); TVOL 500 mL; pH(98.6) 7.35 (7.35-7.45)
[2019-02-05 04:26] LABS: MODALITY VENTILATOR
[2019-02-05 06:19] LABS: ALB/GLOB RATIO 0.9; CREATININE 3.6 mg/dL (0.7-1.2); POTASSIUM 4.8 mmol/L (3.5-5.1); TOTAL BILIRUBIN 0.44 mg/dL (0.20-1.00); TOTAL PROTEIN 6.5 g/dL (6.3-8.3)
--- NOTE | 2019-02-05 06:45 | Diag Imaging Result Doc PS360 ---
CHEST-PORTABLE - 02/05/2019 INDICATION: respiratory failure COMPARISON: 02/04/2019 FINDINGS: Stable endotracheal tube in good position. Stable low lung volumes with significant right hemidiaphragm elevation. There is decrease in the central pulmonary vascular congestion mainly seen at the sean. No significant infiltrates. No pneumothorax or large pleural effusion. IMPRESSION: Improvement in the pulmonary vascular congestion. Electronically signed by Sae Yoon 02/05/2019 6:42 AM
[2019-02-05] MEDS: NS 1,000 ML IV SCH (09:44)
[2019-02-05] MEDS: PROTONIX IV SCH (09:44)
[2019-02-05] MEDS ORDERED: DULCOLAX PR ONE (12:00)
--- NOTE | 2019-02-05 14:02 | PULMONOLOGY PROGRESS NOTE ---
DATE: 02/05/2019 SUBJECTIVE: The patient is awake and alert. He will follow commands. He is motioning to have the endotracheal tube removed. OBJECTIVE: Volume status: The patient has 5540 mL negative over the last 24 hours. Vital signs: He has been afebrile for the last 24 hours. Blood pressure 113/49, heart rate 70, respiratory rate 16, oxygen saturation 99%. HEENT: Pupils are equal and reactive. Oropharynx appears clear. Neck: Supple. Chest: Diminished breath sounds at the right base. Cardiac: S1, S2. Abdomen: Soft with positive bowel sounds. Extremities: Without edema. DIAGNOSTIC STUDIES: Sodium 142, potassium 4.8, chloride 106, bicarbonate 18, BUN 31, creatinine 3.6. Arterial blood gas reveals pH 7.35, pCO2 of 35, PO2 of 118. Chest x-ray reveals chronic elevation of the right hemidiaphragm with decrease in pulmonary vascular congestion. IMPRESSION: 1. An 88-year-old with acute hypoxemic respiratory failure. 2. Status post cardiopulmonary resuscitation (CPR) x2 during this hospitalization. 3. Elevated right hemidiaphragm. 4. Multiple rib fractures. 5. Status post repair of a hip. 6. Cardiomyopathy. 7. Pulmonary hypertension. 8. End-stage renal disease, on hemodialysis. DISCUSSION: An 88-year-old with multiple medical problems as outlined above. He had a good dialysis session yesterday and is greater than 5 L negative. He is awake and alert. He has no active disease within the thorax. With his heart, lung, and kidney disease, he is at significant risk of decompensation and failure following extubation. However, I believe with his current status he will most likely tolerate extubation today if he will tolerate extubation at all. RECOMMENDATION: 1. Extubate this morning. 2. BiPAP at bedtime and p.r.n. 3. Prognosis is poor with multiple medical problems outlined above. CRITICAL CARE TIME: 30-plus minutes. cc: MD Ever Levi MD
--- NOTE | 2019-02-05 14:31 | NEPHROLOGY PROGRESS NOTE ---
DATE: 02/05/2019 TIME SEEN: 0620. SUBJECTIVE: Mr. Sage is currently resting in bed. He is ventilator dependent but awake. OBJECTIVE: Vital Signs: His most recent vital signs, temperature 98.2 degrees, blood pressure 129/61, heart rate 67, respirations are 14. He is currently on 30% FiO2 per vent. He has had 420 in. He has had 6200 out on dialysis. Labs: Sodium 142, potassium 4.8, chloride is 106, CO2 18, BUN 31, creatinine 3.6, glucose is 110, the patient's anion gap is 18, his calcium is 9, albumin is 3. The patient had a previous hemoglobin of 9.3. Physical Examination: General: This is an 88-year-old, white male resting quietly in bed. His skin is warm and dry. HEENT: Normocephalic, atraumatic. Conjunctivae are pale pink. He has MELODY. Mucous membranes are dry. Neck: Supple. Trachea midline. No evidence of JVD. Cardiovascular: He is regular rate and rhythm. The patient is currently having premature PACs. No murmur or gallop appreciated. Lungs: Clear to auscultation anteriorly. Equal excursion, with ventilatory support. Abdomen: Soft, nontender. Positive bowel sounds. Genitourinary: Not inspected. Minimal void with dialysis assist. Extremities: The patient currently has no edema present. No clubbing or cyanosis. This is an improvement from yesterday. He does have a dressing to his right hip. Neurological: As mentioned above. ASSESSMENT AND PLAN: 1. Chronic kidney disease stage 5D. The patient is currently due for dialysis in the morning. No indications for intervention today. 2. Electrolytes and acid-base balance. These remain acceptable with correction on dialysis. 3. Anemia. This is low but stable. 4. Hip fracture. This is currently followed by Dr. Owusu. 5. Status post respiratory arrest per CAT call for aspiration. Patient remains on ventilatory support. Followed by pulmonology and the primary care team. I would like to thank you for allowing us to follow with this patient. Dictated by LEYDA Vo for Curtis Rice MD Face to face encounter, data reviewed, discussed with Clovis Wei on 02/06/19. I agree with the above assessment and plan of care. cc: LEYDA Vo MD Russell T. Barr, MD MTDD
--- NOTE | 2019-02-05 15:56 | PROGRESS NOTE ---
DATE: 02/05/2019 SUBJECTIVE DATA: Mr. Sage is laying in bed. He has not been up today. Overall, he is feeling a little bit better today. OBJECTIVE DATA: Mr. Sage was extubated today. He has not been up with physical therapy yet. The right hip is not giving him too much pain. He does have a little bit of tenderness to palpation of the incision. The incision looked good and is clean, dry, and intact. He is able to dorsi and plantar flex the foot. He can do a straight leg raise. He has good sensation in the lower leg. ASSESSMENT: Status post right trochanteric femoral nailing. PLAN: Mr. Sage is weightbearing as tolerated to the right hip. As long as medically he is stable, we do want him getting up with physical therapy. We want him getting up for all meals. Hopefully, once we get him up and mobilizing and medically stable, we can work towards getting him to a regular floor. It does look like the plan long-term will be for him to go to a rehab facility. We will continue to follow him. When he is discharged, we would like to see him in the office in 2 weeks following his discharge from the hospital. Dictated by LEYDA Zarco for Giuseppe Owusu MD cc: LEYDA Zarco MD Russell T. Barr, MD
[2019-02-05] MEDS ORDERED: ATARAX PO PRN (19:36)
[2019-02-05] MEDS: HYDROCORTISONE 2.5% LOTION TOP SCH (22:15)
[2019-02-06 04:24] LABS: ALLEN TEST YES; BE -7.8 mmoll (-3.0-3.0); BLOOD TYPE ARTERIAL; HCO3-(ACT) 18.8 mmoll (20.0-26.0); METHB 1.1 % (0.0-1.5); MODALITY CANNULA; O2(CT) 14.2 mL/dL (15.0-23.0); O2HB 95.9 % (95.0-99.0); PCO2(98.6) 45 mmHg (35-45); PO2(98.6) 117 mmHg (60-100); SAMPLE BLOOD; SAO2 98.9 % (95.0-100.0); THB 10.4 g/dL (11.5-17.4); pH(98.6) 7.24 (7.35-7.45)
[2019-02-06 06:01] LABS: ALB/GLOB RATIO 0.8; ALBUMIN 2.7 g/dL (3.5-5.0); CALCIUM 8.7 mg/dL (8.8-10.2); CREATININE 5.2 mg/dL (0.7-1.2); TOTAL BILIRUBIN 0.42 mg/dL (0.20-1.00)
[2019-02-06] MEDS ORDERED: HEPARIN IV PRN (06:04)
[2019-02-06] MEDS ORDERED: NS 2,000 ML MISC PRN (06:04)
[2019-02-06] MEDS ORDERED: TIGHT: 0.2 ML/HR FOR DIALYSIS MISC PRN (06:04)
[2019-02-06] MEDS: PREVACID SOLUTAB PO SCH (06:44)
[2019-02-06] MEDS: MORPHINE IV PRN ×3 (06:44→10:35)
--- NOTE | 2019-02-06 07:03 | Diag Imaging Result Doc PS360 ---
EXAM: CHEST-PORTABLE 02/06/2019 HISTORY: respiratory failure TECHNIQUE: AP portable at 0515 COMMENT: There is ill-defined opacity in the lung bases. The inspiration is even less optimal than on 02/05/2019. The lung opacities are however worse. IMPRESSION: Poor inspiration. Pulmonary edema and/or pneumonia. Electronically signed by Uday Garnica 02/06/2019 7:01 AM
[2019-02-06] MEDS: EPOGEN SUBQ SCH (08:55)
[2019-02-06] MEDS: NITROGLYCERIN TOP SCH ×2 (08:55→16:41)
[2019-02-06] MEDS: HYDROCORTISONE 2.5% LOTION TOP SCH ×2 (08:56→20:58)
[2019-02-06] MEDS: BICITRA PO SCH ×2 (13:16→20:57)
[2019-02-06] MEDS: COREG PO SCH ×2 (14:38→20:57)
[2019-02-06] MEDS: ASPIRIN PO SCH (14:38)
--- NOTE | 2019-02-06 18:06 | NEPHROLOGY PROGRESS NOTE ---
DATE: 02/06/2019 SUBJECTIVE: He is awake and alert. He is complaining of pain in the right shoulder. He is thirsty. OBJECTIVE: Vital Signs: Blood pressure 118/56, heart rate 66, respirations 25. Afebrile. General: No acute distress. Skin: Warm and dry. Neck: Neck veins are not distended. HEENT: Oropharynx is dry. Cardiovascular: Heart is regular. No gallops. Respiratory: Lungs are equal. No crackles. Abdomen: Soft, nontender. Bowel sounds present. Extremities: 1+ edema. No clubbing or cyanosis. IMPRESSION: Chronic kidney disease 5D. He will have his routine dialysis today using a 2 potassium bath, 32 bicarbonate. His hemoglobin is below target, but does not meet criteria for transfusion. Goal of 2 to 3 L ultrafiltration as blood pressure allows. cc: MD Ever Valentine MD
--- NOTE | 2019-02-06 18:24 | PULMONOLOGY PROGRESS NOTE ---
DATE: 02/06/2019 SUBJECTIVE: The patient has returned from dialysis. He is back in the ICU. He is arousable to alert. He reports he is doing fair. He has a limited cough effort and does report some chest wall pain. OBJECTIVE: Vital Signs: The patient has been afebrile for the last 24 hours. Blood pressure 103/57, heart rate 69, respiratory rate 11, oxygen saturation 100% on 3 L per nasal cannula. HEENT: Pupils are equal and reactive. Oropharynx is clear. Neck: Is supple. Chest: Reveals diminished breath sounds right base. Cardiac: S1, S2. Abdomen: Soft with diminished bowel sounds. Extremities: Are without edema. LABORATORIES: Chest x-ray reveals bibasilar atelectasis with shallow inspiration. Sodium 144, potassium 5.0, chloride 109, bicarbonate 19, BUN 49, creatinine 5.2, glucose 98. Arterial blood gas, pH 7.24, pCO2 of 45, PO2 of 117. IMPRESSION: An 88-year-old with 1. Acute hypoxemic respiratory failure. 2. Status post cardiopulmonary arrest x2 during this hospitalization. 3. Chronic elevation of the right hemidiaphragm. 4. Multiple rib fractures following cardiopulmonary resuscitation. 5. Status post repair of hip fracture. 6. Cardiomyopathy. 7. Pulmonary hypertension. 8. End-stage renal disease. 9. Atelectasis both lung bases. DISCUSSION: 88-year-old with multiple medical problems as outlined above. He currently has a marginal cough. His prognosis continues to remain guarded to poor. He has been off mechanical ventilation for over 24 hours. RECOMMENDATION: 1. Continue to cycle BiPAP at bedtime and p.r.n. 2. Encourage bronchial hygiene with incentive spirometer and cough effort. 3. Continue fluid management per Nephrology. 4. Add Bicitra for his metabolic acidosis and acidemia related to chronic renal failure. 5. Overall prognosis is poor. Would recommend ongoing end of life discussions. cc: MD Ever Levi MD
[2019-02-06] MEDS ORDERED: LOPRESSOR PO SCH (21:00)
[2019-02-07] MEDS: NITROGLYCERIN TOP SCH ×3 (00:10→17:28)
[2019-02-07 05:21] LABS: ALLEN TEST YES; BE 3.4 mmoll (-3.0-3.0); BLOOD TYPE ARTERIAL; HCO3-(ACT) 27.6 mmoll (20.0-26.0); METHB 0.9 % (0.0-1.5); O2(CT) 13.6 mL/dL (15.0-23.0); O2HB 97.1 % (95.0-99.0); PCO2(98.6) 45 mmHg (35-45); PO2(98.6) 163 mmHg (60-100); SAMPLE BLOOD; SAO2 100.2 % (95.0-100.0); THB 9.7 g/dL (11.5-17.4); pH(98.6) 7.41 (7.35-7.45)
[2019-02-07 05:22] LABS: MODALITY CANNULA
[2019-02-07] MEDS: OXY IR PO PRN (06:38)
[2019-02-07] MEDS: PREVACID SOLUTAB PO SCH (06:38)
[2019-02-07 07:29] LABS: ALB/GLOB RATIO 0.8; ALBUMIN 2.6 g/dL (3.5-5.0); CALCIUM 8.6 mg/dL (8.8-10.2); POTASSIUM 4.2 mmol/L (3.5-5.1); TOTAL BILIRUBIN 0.38 mg/dL (0.20-1.00); TOTAL PROTEIN 5.8 g/dL (6.3-8.3)
--- NOTE | 2019-02-07 08:37 | Diag Imaging Result Doc PS360 ---
EXAM: CHEST-PORTABLE INDICATION: respiratory failure TECHNIQUE: One view COMPARISON: 02/06/2019 FINDINGS: There is elevation of the right hemidiaphragm similar to the previous study. There is better aeration of the left lung base as compared to the previous study. However, the volume of the right lung is slightly lower. The opacity at the left lung base has improved. Vague atelectasis and/or infiltrate at the right lung base is approximately stable. No new consolidation is identified. Iliac silhouette is stable. IMPRESSION: Interval improvement on the left as described. Electronically signed by Jaleel Meraz 02/07/2019 8:34 AM
[2019-02-07] MEDS: BICITRA PO SCH ×2 (09:06→23:03)
[2019-02-07] MEDS: ASPIRIN PO SCH (09:06)
[2019-02-07] MEDS: COREG PO SCH ×2 (09:06→23:03)
[2019-02-07] MEDS: MORPHINE IV PRN (09:08)
[2019-02-07] MEDS: HYDROCORTISONE 2.5% LOTION TOP SCH ×2 (09:13→23:04)
[2019-02-07] MEDS: LOVENOX SUBQ SCH (17:29)
--- NOTE | 2019-02-07 18:49 | PULMONOLOGY PROGRESS NOTE ---
DATE: 02/07/2019 SUBJECTIVE: The patient has been transferred to the floor. He is awake, alert, and conversant. He has a marginal cough effort due to chest wall pain but this has improved over the last 24 hours. OBJECTIVE: Vital Signs: The patient has been afebrile for the last 24 hours. Blood pressure 125/59, heart rate 68, respiratory rate 13, oxygen saturation 96% on 2 L per nasal cannula. HEENT: Pupils are equal and reactive. Oropharynx appears clear. Neck: Is supple. Chest: Reveals decreased breath sounds at the right base. Cardiac exam: S1-S2. Abdomen: Is soft. Extremities: Are without edema. LABORATORIES: Sputum culture reveals sparse growth of normal kiah. Chest x-ray reveals chronic elevation of the right hemidiaphragm with slight increased aeration at the left base. Arterial blood gas pH 7.41, pCO2 of 41, PO2 of 163. Chemistry, sodium 141, potassium 4.2, chloride 101, bicarbonate 26, BUN 36, creatinine 4.0. IMPRESSION: An 88-year-old with 1. Acute hypoxemic respiratory failure. 2. Acute rib fractures following cardiopulmonary resuscitation. 3. Status post cardiac arrest x2 during this hospitalization. 4. Chronic elevation of the right hemidiaphragm. 5. Status post hip fracture repair. 6. Cardiomyopathy. 7. Pulmonary hypertension. 8. End-stage renal disease on chronic hemodialysis. RECOMMENDATIONS: 1. Continue oxygen and cycle with BiPAP p.r.n. 2. Continue bronchial hygiene and encourage incentive spirometer use. 3. Continue Bicitra for metabolic acidosis, which has improved. 4. Anticipate the need for rehabilitation. cc: MD Ever Levi MD
--- NOTE | 2019-02-07 20:55 | NEPHROLOGY PROGRESS NOTE ---
DATE: 02/07/2019 SUBJECTIVE: He is awake, alert. He has no significant complaints. He is coughing some. He has ongoing right shoulder pain. He does not remember his event that led to intubation and CPR. OBJECTIVE: Vital Signs: Blood pressure 114/56, heart rate 75, respirations 12, afebrile. General: No acute distress. Skin: Warm and dry. Conjunctivae are pink. Neck: Neck veins are not distended. Heart: Regular. Lungs: Equal with rhonchi. Abdomen: Soft, nontender. Bowel sounds present. Extremities: No edema, clubbing or cyanosis. IMPRESSION: Chronic kidney disease 5D. He will have his next routine dialysis treatment on Saturday. Electrolytes, acid base, volume status, vital signs are all within target. He does have moderate anemia but does not meet criteria for transfusion. cc: MD Ever Valentine MD
[2019-02-08] MEDS: NITROGLYCERIN TOP SCH ×3 (01:26→16:44)
[2019-02-08] MEDS: PREVACID SOLUTAB PO SCH (06:39)
[2019-02-08] MEDS ORDERED: MIRALAX PO SCH (09:00)
[2019-02-08] MEDS: BENEFIBER PACKET PO SCH (09:42)
[2019-02-08] MEDS: ASPIRIN PO SCH (09:42)
[2019-02-08] MEDS: HYDROCORTISONE 2.5% LOTION TOP SCH ×2 (09:43→23:48)
[2019-02-08] MEDS: COREG PO SCH ×2 (09:43→23:49)
[2019-02-08] MEDS: BICITRA PO SCH ×2 (09:43→23:48)
--- NOTE | 2019-02-08 16:35 | PULMONOLOGY PROGRESS NOTE ---
DATE: 02/08/2019 SUBJECTIVE: Patient was sleeping upon arrival. He reports he is drinking his Nepro. Appetite is otherwise poor. He is without specific complaints today. OBJECTIVE: Vital Signs: The patient has been afebrile for the last 24 hours. Blood pressure 104/46, heart rate 70, respiratory rate 16, oxygen saturation 100% on 2 L per nasal cannula. HEENT: Pupils are equal and reactive. Oropharynx appears clear. Neck: Is supple. Chest: Reveals decreased breath sounds right base without wheezing or rhonchi. Cardiac exam: S1-S2. Abdomen: Is soft with positive bowel sounds. Extremities: Reveal trace edema. LABORATORIES: No new chemistries, x-rays or CBC today. IMPRESSION: An 88-year-old with 1. Cardiac arrest x2 during this hospitalization, 1 on admission and 1 perioperatively. 2. Chronic elevation of the right hemidiaphragm. 3. Multiple rib fractures following cardiopulmonary resuscitation. 4. Status post hip fracture repair. 5. Cardiomyopathy. 6. Pulmonary hypertension. 7. End-stage renal disease on hemodialysis. RECOMMENDATIONS: 1. Continue oxygen and cycle BiPAP if needed. 2. Continue bronchial hygiene and encourage incentive spirometry. 3. Anticipate the need for rehabilitation following this hospital stay. cc: MD Ever Levi MD
[2019-02-08] MEDS: LOVENOX SUBQ SCH ×2 (16:52→17:01)
[2019-02-08] MEDS: OXY IR PO PRN (23:47)
[2019-02-08] MEDS: MIRALAX PO SCH (23:48)
[2019-02-09] MEDS: NITROGLYCERIN TOP SCH (01:15)
[2019-02-09 06:28] LABS: BASO# 0.02 X1000 (0.0-0.2); BASO% 0.2 % (0.0-0.8); EOS# 0.67 X1000 (0.0-0.7); EOS% 7.6 % (0.0-10.0); HEMATOCRIT 30.3 % (42.0-52.0); HEMOGLOBIN 8.9 g/dL (14.0-18.0); IMM GRAN# 0.05 X1000 (0.0-0.04); IMM GRAN% 0.6 % (0.0-0.5); LYMPH# 1.13 X1000 (1.2-3.4); LYMPH% 12.8 % (20.5-51.1); MCH 30.4 PG (27-31); MCHC 29.4 g/dL (33-37); MCV 103.4 FL (81-99); MONO# 0.92 X1000 (0.11-0.59); MONO% 10.4 % (1.7-9.3); MPV 11.1 FL (7.4-10.4); NEUT# 6.05 X1000 (1.4-6.5); NEUT% 68.4 % (42.2-75.2); PLT 248 X1000 (130-400); RBC 2.93 XMIL (4.7-6.1); RDW 14.7 % (11.5-14.5); WBC 8.84 X1000 (4.8-10.8)
[2019-02-09 06:48] LABS: ALB/GLOB RATIO 0.7; ALBUMIN 2.4 g/dL (3.5-5.0); CALCIUM 8.7 mg/dL (8.8-10.2); CREATININE 5.3 mg/dL (0.7-1.2); MAGNESIUM 2.3 mg/dL (1.5-2.7); POTASSIUM 4.8 mmol/L (3.5-5.1); TOTAL BILIRUBIN 0.3 mg/dL (0.20-1.00); TOTAL PROTEIN 5.8 g/dL (6.3-8.3)
--- NOTE | 2019-02-09 07:36 | Diag Imaging Result Doc PS360 ---
EXAM: CHEST-PORTABLE HISTORY: abnormal exam TECHNIQUE: Portable chest single view COMPARISON: 02/07/2019 FINDINGS: The lungs are well expanded. The right hemidiaphragm is elevated. The heart is not enlarged. There is a right-sided portacatheter. The vessels are not distended. Mild increased density in the left base persists. No effusion identified. IMPRESSION: Stable exam. Electronically signed by Richard Winston 02/09/2019 7:34 AM
[2019-02-09] MEDS ORDERED: TIGHT: 0.2 ML/HR FOR DIALYSIS MISC PRN (07:50)
[2019-02-09] MEDS ORDERED: NS 2,000 ML MISC PRN (07:50)
[2019-02-09] MEDS ORDERED: HEPARIN IV PRN (07:50)
[2019-02-09] MEDS ORDERED: HUMULIN N SUBQ ONE (07:56)
[2019-02-09] MEDS: PREVACID SOLUTAB PO SCH (08:08)
[2019-02-09] MEDS: OXY IR PO PRN ×2 (08:20→22:03)
[2019-02-09] MEDS: BICITRA PO SCH ×2 (08:22→21:00)
[2019-02-09] MEDS: BENEFIBER PACKET PO SCH (08:24)
[2019-02-09] MEDS: ASPIRIN PO SCH (08:25)
[2019-02-09] MEDS: HYDROCORTISONE 2.5% LOTION TOP SCH ×2 (08:26→22:04)
[2019-02-09] MEDS: COREG PO SCH ×2 (08:26→21:00)
[2019-02-09] MEDS: IMDUR PO SCH (08:48)
[2019-02-09] MEDS: EFFEXOR XR PO SCH (09:12)
--- NOTE | 2019-02-09 11:14 | NEPHROLOGY PROGRESS NOTE ---
DATE: 02/09/2019 SUBJECTIVE: Patient is sitting up in bed. He states he has a cough and some plan. He has not been really hungry today. OBJECTIVE: Vital Signs: Temperature 98.8 degrees, pulse 61, respiratory rate 18, blood pressure 121/42. General: This is an elderly gentleman sitting up in bed. He is awake and alert. He does not appear in acute distress. HEENT: Normocephalic, atraumatic. Pupils are pinpoint, round. Oral mucosa is dry. Neck: Supple without JVD. Cardiovascular: Regular rate and rhythm. There is no murmur noted. Pulmonary: He is clear bilaterally. He has no increased work of breathing. He is on O2 supplementation via nasal cannula. Abdomen: Soft, with positive bowel sounds. : Not inspected. Minimal void on hemodialysis. Extremities: No edema, clubbing or cyanosis. Integumentary: Skin is thin, warm and dry. He does have some ecchymoses noted upper extremities. INPUT AND OUTPUT: Intake 450 mL. Output not measured. LABORATORY DATA: WBC of 8.8, hemoglobin 8.9. Sodium 139, potassium 4.8, CO2 28, creatinine 5.3. ASSESSMENT AND PLAN: Chronic kidney disease 5D. Today is his routine dialysis day. He will dialyze on a 2K bath/UF to his last in weight/3.5 hour treatment. His hemoglobin is stable. Continue to monitor. Transfuse as warranted. Dictated by LEYDA Campos for Curtis Rice MD Face to face encounter, data reviewed, discussed with Jose Mackenzie on 02/09/19. I agree with the above assessment and plan of care. cc: MD Ever Valentine MD MTDD
[2019-02-09] MEDS: TYLENOL PO SCH ×3 (11:40→18:30)
[2019-02-09] MEDS: LOVENOX SUBQ SCH (18:29)
[2019-02-09] MEDS: EPOGEN SUBQ SCH (18:50)
[2019-02-09] MEDS ORDERED: HUMULIN N SUBQ SCH (21:00)
[2019-02-09] MEDS: MIRALAX PO SCH (22:04)
[2019-02-10] MEDS: PREVACID SOLUTAB PO SCH (06:32)
--- NOTE | 2019-02-10 07:22 | PROGRESS NOTE ---
DATE: 02/10/2019 SUBJECTIVE: Mr. Sage is lying in bed this morning. Overall, he is feeling okay. OBJECTIVE: On right lower extremity examination, dale are still intact. Wounds look like they are healing well. He still has some bruising to that right hip. He has good dorsiflexion and plantar flexion of the foot. ASSESSMENT: Status post right trochanteric femoral nailing. PLAN: Mr. Sage is still weightbearing as tolerated to the right lower extremity. He will be mobilized as tolerated as well. Physical therapy will need to work with him daily, get him up and moving. When he is out of the hospital, he can follow up with me in a week or so. We can get his dale out at that time or they can get the dale out in about a week at the rehab facility. cc: MD Ever Holloway MD
--- NOTE | 2019-02-10 07:25 | NEPHROLOGY PROGRESS NOTE ---
DATE: 02/10/2019 SUBJECTIVE: Today, he primarily complains again of his rib pain. No shortness of breath. His appetite remains low but he has been drinking his Nepro. No real problems with his hip. OBJECTIVE: Vital Signs: Blood pressure 114/50, heart rate 62, respirations 16, afebrile. General: Chronically ill, elderly man. No distress. Skin: Warm and dry. HEENT: Conjunctivae are pink. Neck: Neck veins are not distended. Heart: Regular, with systolic murmur. Lungs: Equal. No crackles. Shallow. Abdomen: Soft, nontender. Bowel sounds present. Extremities: With 1+ edema. No clubbing or cyanosis. IMPRESSION: Chronic kidney disease 5D. He underwent his routine hemodialysis yesterday and tolerated it without difficulty. There were 700 mL of ultrafiltration volume with dialysis done yesterday, limited by his blood pressure. Electrolytes and acid-base are in target. Hemoglobin is below target but stable, does not meet criteria for transfusion. cc: MD Ever Valentine MD
[2019-02-10] MEDS: ASPIRIN PO SCH (08:09)
[2019-02-10] MEDS: COREG PO SCH ×2 (08:09→22:05)
[2019-02-10] MEDS: TYLENOL PO SCH ×3 (08:09→18:49)
[2019-02-10] MEDS: EFFEXOR XR PO SCH (08:09)
[2019-02-10] MEDS: IMDUR PO SCH (08:09)
[2019-02-10] MEDS: HYDROCORTISONE 2.5% LOTION TOP SCH ×2 (08:10→22:05)
[2019-02-10] MEDS: BICITRA PO SCH ×2 (08:10→22:05)
[2019-02-10] MEDS: BENEFIBER PACKET PO SCH (08:10)
[2019-02-10] MEDS ORDERED: HUMULIN N SUBQ SCH (09:00)
[2019-02-10] MEDS: LOVENOX SUBQ SCH (18:49)
--- NOTE | 2019-02-10 21:45 | PULMONOLOGY PROGRESS NOTE ---
DATE: 02/10/2019 SUBJECTIVE: The patient is awake, alert, and conversant. He is without specific complaints. He is tolerating p.o. intake. He has a fairly good cough effort. OBJECTIVE: Vital Signs: The patient has been afebrile for the last 24 hours. BP 105/56, heart rate 60, respiratory rate 12, oxygen saturation 93% on room air. HEENT: Pupils are equal and reactive. Oropharynx is clear. Neck: Supple. Chest: Reveals decreased breath sounds right base. Cardiac exam: S1-S2. Abdomen: Soft and without hepatosplenomegaly. Extremities: Without edema. IMPRESSION: An 88-year-old with: 1. Chronic elevation of the right hemidiaphragm. 2. Multiple rib fractures, status post cardiopulmonary resuscitation. 3. Status post cardiac arrest x2 during this hospitalization. 4. Status post hip fracture repair. 5. Cardiomyopathy. 6. Pulmonary hypertension. 7. End-stage renal disease. RECOMMENDATIONS: 1. Continue bronchial hygiene. 2. Followup chest x-ray tomorrow. 3. Anticipate rehabilitation stay at the time of discharge. cc: MD Ever Levi MD
[2019-02-10] MEDS: MIRALAX PO SCH (22:05)
[2019-02-11] MEDS: PREVACID SOLUTAB PO SCH (07:34)
--- NOTE | 2019-02-11 07:36 | Diag Imaging Result Doc PS360 ---
EXAM: CHEST-PORTABLE INDICATION: abnormal exam TECHNIQUE: One view COMPARISON: 02/09/2019 FINDINGS: There is stable elevation of the right hemidiaphragm. There is right basilar atelectasis that is unchanged. The minimal increased density at the left lung base is approximately stable and may represent a trace effusion. No new consolidation is identified. Cardiac silhouette is stable. IMPRESSION: Stable chest. Electronically signed by Jaleel Meraz 02/11/2019 7:33 AM
[2019-02-11] MEDS ORDERED: TIGHT: 0.2 ML/HR FOR DIALYSIS MISC PRN (08:05)
[2019-02-11] MEDS ORDERED: HEPARIN IV PRN (08:05)
[2019-02-11] MEDS ORDERED: NS 2,000 ML MISC PRN (08:05)
[2019-02-11] MEDS: TYLENOL PO SCH ×2 (08:42→17:58)
[2019-02-11] MEDS ORDERED: HUMULIN N SUBQ SCH (09:00)
--- NOTE | 2019-02-11 11:00 | DISCHARGE SUMMARY ---
ADMISSION DATE: 01/30/2019 DISCHARGE DATE: 02/11/2019 FINAL DIAGNOSES: 1. Acute right intertrochanteric fracture of the right hip. 2. 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 3. 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 4. Type 2 diabetes mellitus. 5. End-stage renal disease on maintenance hemodialysis. 6. Severe pseudogout of multiple joints, the most symptomatic of which is the right shoulder. PRESENT ILLNESS: Mr. Sage is an 88-year old gentleman who was preparing to go to dialysis on the day of admission when he bent over in the bathroom and lost his balance and fell hitting his right hip. He was unable to get up and arrived at the Emergency Room by ambulance and x-rays documented an intertrochanteric right hip fracture. While awaiting admission he experience a very brief cardiopulmonary arrest and had momentary chest compressions and woke up and never required intubation. He had apparently become somewhat bradycardiac and hypoxemic immediately before this episode. PHYSICAL EXAMINATION: General Appearance: He is a chronically ill-appearing, elderly, gentleman in bed who is alert and recognizes me. Speech was clear without dysarthria. Skin was warm and slightly pale and dry. Cardiovascular: Regular rate and rhythm. Intermittent S3 gallop heard. Respiratory: Respiratory sounds were clear bilaterally without crackles or wheezes. Extremities: There is marked pain and reduced range of motion in the right shoulder. The right leg was shortened and externally rotated. DATABASE: Potassium is 6.1. BUN and creatinine were elevated above his baseline. HOSPITAL COURSE: He is admitted to ICU. He was seen by Dr. Rice, his route relief driver, and scheduled for hemodialysis on Saturday as he had missed his Saturday afternoon appointment. He was given medication for hyperkalemia and the next morning had uneventful hemodialysis. Surgical repair was accomplished by Dr. Greene on Saturday. He was returned to the ICU and was then discharged to the floor. On the morning of 02/03/2019 he was attempting to swallow a pill and became somewhat choked, hypoxemic, and again had a brief cardiopulmonary arrest. He was moved back to ICU. He was intubated and seen by Dr. Deluna, Director Housekeeping, and also Dr. Anthony, Pulmonary. A CT pulmonary angiogram was performed which showed no evidence of pulmonary edema. Dr. Anthony and I agreed that since pulmonary emboli were ruled out that intermittent severe global myocardial ischemia was likely the cause of his arrest and that it reoccur at any time. Due to his multiple comorbidities including the dialysis and chronic renal failure he is not a candidate for left heart catheterization or further revascularization. He was extubated on 02/05/2019 and tolerated this well. The rest of his hospitalization was devoted to physical therapy as his ICU adventures had somewhat delayed effective therapy. He progressed very slowly due to his multiple comorbidities. At the time of discharge he has been assisted to sitting on the edge of the bed and has managed to stand very briefly but has been unable to transfer to a bedside chair. I feel that he will require ambulance transportation to rehab and that has been approved by his Medicare plan for rehab. Other comorbidities noted during this hospitalization are an elevated right hemidiaphragm and multiple rib fractures. He had an echocardiogram showing ischemic cardiomyopathy with poor left ventricular function and an ejection fraction of 20% to 25%. Pulmonary hypertension was also noted. He is felt to be at extremely high risk for future decompensation but no particular avenues for fixing this were apparent. He is discharged in guarded condition and I will continue to follow him at [facility]. DISCHARGE MEDICATIONS: 1. Acetaminophen 500 mg 3 times a day. 2. Aspirin 81 mg daily. 3. Carvedilol 12.5 mg twice a day. 4. Bicitra 30 mL p.o. twice a day. 5. Lovenox 30 mg subcutaneously once daily. 6. Erythropoietin alpha 10,000 units subcutaneously on Saturday, Saturday, and Saturday mornings (may be given at dialysis). 7. Benefiber 1 packet daily with MiraLAX mixed in the same glass daily to prevent constipation. 8. Hydrocortisone lotion topically b.i.d. p.r.n. for itching. 9. NPH insulin 12 units subcutaneously every a.m. 10.Imdur 30 mg p.o. every a.m. 11.Prevacid SoluTab 15 mg daily before breakfast. 12.Oxycodone IR. 13.MiraLAX 17 g daily. 14.Venlafaxine Extended Release capsule 37.5 mg every a.m. 15.Vitamin B12 1,000 mcg daily. cc: Ever Willett MD
[2019-02-11 12:03] VITALS: BP 112/61
[2019-02-11] MEDS: EFFEXOR XR PO SCH (17:58)
[2019-02-11] MEDS: IMDUR PO SCH (17:59)
[2019-02-11] MEDS: ASPIRIN PO SCH (17:59)
[2019-02-11] MEDS: COREG PO SCH (18:00)
[2019-02-11] MEDS: BICITRA PO SCH (18:01)
[2019-02-11] MEDS: LOVENOX SUBQ SCH (18:03)
[2019-02-11] MEDS: EPOGEN SUBQ SCH (18:12)
--- NOTE | 2019-02-11 18:52 | NEPHROLOGY PROGRESS NOTE ---
DATE: 02/11/2019 SUBJECTIVE: The patient is sitting up in bed. He has eaten a couple bites of breakfast. He is waiting to go to dialysis. He is drowsy. OBJECTIVE: Vital Signs: Temperature 97.4 degrees, pulse 88, respiratory rate 14, blood pressure 109/59. Intake 630 mL, output 300 mL. PHYSICAL EXAMINATION: General: This is an elderly gentleman sitting up in bed, in no acute distress. HEENT: Normocephalic, atraumatic. PERRL. Neck: Supple, without JVD. Cardiovascular: Regular rate and rhythm. Systolic murmur noted. Pulmonary: Clear bilaterally. Equal excursion. Abdomen: Soft, with positive bowel sounds. : Not inspected. Extremities: He has trace to 1+ edema. Integumentary: Skin is warm and dry otherwise. LAB DATA: WBC of 8.8. No new renal. ASSESSMENT AND PLAN: 1. Chronic kidney disease 5D. Continue routine dialysis in the hospital. Plan for outpatient continuation once he is discharged to rehabilitation. 2. Hip fracture. Followed by primary. 3. Disposition. I understand he will likely be discharged later today to rehabilitation. Dictated by LEYDA Campos for Curtis Rice MD Face to face encounter, data reviewed, discussed with Jose Mackenzie on 02/11/19. I agree with the above assessment and plan of care. cc: MD Ever Valentine MD MTDD
== END 2019-02-11 18:40 | DRG 480 ==
LOC: SUPCPDRO → ED 11:54 → 4N 17:05 → ICU 21:01 → 4N 02-02 09:32 → ICU 02-03 07:25 → 4N 02-07 10:26
PROVIDERS: ADMIT Internal Medicine; ATTEND Internal Medicine
CPT/HCPCS: 31500; 70450; 71010; 71045; 71275; 73020; 73502; 74177; 76000; 80053; 80069; 82805; 82948; 83605; 83735; 83880; 84100; 84132; 84439; 84443; 84484; 85014; 85018; 85025; 85027; 85610; 85730; 87040; 87070; 87205; 89220; 92950; 93005; 93010; 93306; 94002; 94003; 94640; 94761; 94799; 96365; 96372; 96375; 97110; 97161; 97530; 99285; A9270; C8929; C9113; G0378; J0131; J0171; J0456; J0610; J0690; J0696; J0885; J1644; J1650; J1815; J1885; J2270; J7030; J7040; Q9957; Q9967; S0164; XXXXX

== ENCOUNTER 2019-03-03 14:52 | Inpatient (IN) ==
[2019-03-03] MEDS ORDERED: NS 1,000 ML IV ONE (15:41)
[2019-03-03] MEDS ORDERED: VANCOMYCIN 1 GM/NS 1 GM/250 ML IVPB IV ONE (15:43)
--- NOTE | 2019-03-03 16:01 | Diag Imaging Result Doc PS360 ---
EXAM: CHEST-2 VIEWS HISTORY: cough TECHNIQUE: Chest two views COMPARISON: 02/24/2019 FINDINGS: The right hemidiaphragm is elevated. There are small pleural effusions. Borderline mildly prominent heart. Mild vascular distention persists. There is a right-sided pacemaker. Atelectasis versus a small infiltrate in the left lung base. IMPRESSION: Development of atelectasis and/or small infiltrate in the left lung base. Electronically signed by Richard Winston 03/03/2019 3:58 PM
[2019-03-03 16:35] LABS: BASO# 0.07 X1000 (0.0-0.2); BASO% 0.7 % (0.0-0.8); EOS# 0.46 X1000 (0.0-0.7); EOS% 4.7 % (0.0-10.0); HEMATOCRIT 37.2 % (42.0-52.0); HEMOGLOBIN 11.4 g/dL (14.0-18.0); IMM GRAN# 0.04 X1000 (0.0-0.04); IMM GRAN% 0.4 % (0.0-0.5); LYMPH# 1.09 X1000 (1.2-3.4); LYMPH% 11.2 % (20.5-51.1); MCH 30.5 PG (27-31); MCHC 30.6 g/dL (33-37); MCV 99.5 FL (81-99); MONO# 1.39 X1000 (0.11-0.59); MONO% 14.3 % (1.7-9.3); MPV 11.1 FL (7.4-10.4); NEUT# 6.69 X1000 (1.4-6.5); NEUT% 68.7 % (42.2-75.2); PLT 345 X1000 (130-400); RBC 3.74 XMIL (4.7-6.1); RDW 16.3 % (11.5-14.5); WBC 9.74 X1000 (4.8-10.8)
--- NOTE | 2019-03-03 16:40 | Diag Imaging Result Doc PS360 ---
EXAM: ANKLE COMPLETE RIGHT HISTORY: ankle erythema, swelling and infection TECHNIQUE: Portable right ankle, three views COMPARISON: None. FINDINGS: No fracture. No dislocation. The bones are osteopenic. Prominent atherosclerosis. No periosteal reaction. No bone erosions. Large inferior calcaneal bone spur. IMPRESSION: No plain film evidence of osteomyelitis. If clinical concern persists an MRI is recommended. Electronically signed by Richard Winston 03/03/2019 4:37 PM
[2019-03-03 17:10] LABS: ALB/GLOB RATIO 0.8; C REACTIVE PROT QUANT 90.03 mg/L (0.00-5.00); CALCIUM 8.6 mg/dL (8.8-10.2); CREATININE 5.8 mg/dL (0.7-1.2); TOTAL BILIRUBIN 0.32 mg/dL (0.20-1.00); TOTAL PROTEIN 6.7 g/dL (6.3-8.3)
[2019-03-03 17:24] LABS: POTASSIUM 6.3 mmol/L (3.5-5.1)
[2019-03-03] MEDS ORDERED: ROCEPHIN 1 GM in NS 50 ML IV ONE (17:56)
[2019-03-03] MEDS ORDERED: HUMULIN R IV ONE (17:58)
[2019-03-03] MEDS ORDERED: ALBUTEROL 0.5% INH CONC FOR HYPERKALEMIA INH ONE (17:58)
[2019-03-03] MEDS ORDERED: D50W SYRINGE IV ONE (17:58)
[2019-03-03] MEDS ORDERED: CALCIUM GLUCONATE 1 GM in NS 50 ML IV ONE (18:05)
[2019-03-03] MEDS ORDERED: ALBUTEROL 0.5% INH CONC FOR HYPERKALEMIA ONE ×2 (18:17)
--- NOTE | 2019-03-03 18:45 | PROVIDER DOCUMENTATION ---
This chart was entered by Rose Ariza Scribe, acting as scribe for David Laguna MD. HPI-Rash/Wound/ReCheck - General Chief Complaint: Extremity Injury Stated Complaint: cellulitis rt foot Time Seen by Provider: 03/03/19 15:00 Source: patient Allergies/Adverse Reactions: Allergies Allergy/AdvReac Type Severity Reaction Status Date / Time No Known Allergies Allergy Verified 02/24/19 10:00 Home Medications: Home Medication List Medication Instructions Recorded Confirmed Last Taken Type Venlafaxine E.r. [Effexor Xr] 37.5 mg PO QAM capsule 11/08/17 01/30/19 09/16/18 05:45 Rx Ascorbic Acid [Vitamin C] 1 tab PO QAM 01/26/19 02/08/19 Unknown History Calcium Acetate [Phoslo] 667 mg PO BID 01/26/19 02/08/19 Unknown History Cyanocobalamin (Vitamin B-12) 1,000 mcg PO DAILY 01/26/19 01/30/19 Unknown History [B-12] Multivitamin [Multivitamins] 1 ea PO QAM 01/26/19 02/08/19 Unknown History Acetaminophen [Tylenol] 500 mg PO TID tab 02/11/19 Unknown Rx Aspirin 81 mg PO DAILY chewtab 02/11/19 Unknown Rx Citric Acid/Sodium Citrate 30 ml PO BID udc 02/11/19 Unknown Rx [Bicitra] Enoxaparin [Lovenox] 30 mg SUBQ Q24H syringe 02/11/19 Unknown Rx Epoetin Aldair [Epogen] 10,000 unit SUBQ MoWeFr@0900 vial 02/11/19 Unknown Rx Guar Gum [Benefiber Packet] 1 ea PO DAILY packet 02/11/19 Unknown Rx Hydrocortisone 2.5% Lotion 5 ml TOP BID bottle 02/11/19 Unknown Rx Insulin Human NPH [Humulin N] 12 unit SUBQ QAM vial 02/11/19 Unknown Rx Isosorbide Mononitrate E.r. [Imdur] 30 mg PO DAILY tab 02/11/19 Unknown Rx Lansoprazole Rap.d.r [Prevacid 15 mg PO DAILY@0700 tab 02/11/19 Unknown Rx Solutab] Oxycodone I.r. [Oxy Ir] 5 mg PO Q3H PRN PRN #30 tab 02/11/19 Unknown Rx Polyethylene Glycol 3350 [Miralax] 17 gm PO HS powder, packet 02/11/19 Unknown Rx Venlafaxine E.r. [Effexor Xr] 37.5 mg PO QAM cap 02/11/19 Unknown Rx - History of Present Illness-Dermatology Nature of Presenting Problem: Patient is a 88 year old male who presents with swelling and erythema to right foot that started 5 days ago and getting worse. Reports seeing Dr. Owusu today for his prior hip fracture and was told to go to the ED for IV antibiotics. Does not report fever. History of dialysis. Location: reports: feet (right) Quality: reports: none Severity: reports: mild Onset/Duration: reports: 5 days ago Timing: reports: still present, getting worse Context/Associated Symptoms: reports: swelling/mass/lumps (swelling), other (erythema) Locality of Occurance: Home Similar Symptoms Previously?: Yes Recently seen or treated by another doctor?: Yes Review of Systems - Adult - REVIEW OF SYSTEMS - ADULT Constitutional: reports: no symptoms reported. denies: chills, fever, fatique Eyes: reports: no symptoms reported Ears, Nose, Mouth & Throat: reports: no symptoms reported Cardiovascular: reports: no symptoms reported Respiratory: reports: no symptoms reported Gastrointestinal: reports: no symptoms reported Genitourinary: reports: no symptoms reported Musculoskeletal: reports: no symptoms reported. denies: back pain, muscle aches, neck pain Integumentary: reports: other (swelling and erythema to right foot). denies: hives, itching, rash Neurological: reports: no symptoms reported Psychiatric: reports: no symptoms reported Endocrine: reports: no symptoms reported Hematologic/Lymphatic: reports: no symptoms reported Allergic/Immunologic: reports: no symptoms reported All Other Systems: Reviewed and Negative Past History - Adult - PAST MEDICAL HISTORY-ADULT Review of Records: reports: Nursing Assessment Review, Medications Reviewed, Social history reviewed & non-contributory. Major Childhood Illnesses: reports: denies history Cardiovascular: reports: CHF, HTN, hyperlipidemia, DE Respiratory: reports: denies history Gastrointestinal: reports: denies history Obstetrical/Gynecological: reports: denies history Genitourinary: reports: dialysis, kidney disease Musculoskeletal: reports: denies history Neurological: reports: denies history Psychiatric: reports: depression Endocrine/Immune: reports: Diabetes Other Conditions: reports: denies history - PRIOR SURGERIES/PROCEDURES Surgical/Procedure History: reports: orthopedic (extremity), joint replacement - IMMUNIZATION STATUS Childhood Immunizations: See Nurse Assessment Flu Vaccine: See Nurse Assessment - FAMILY HISTORY Family History: reviewed, not pertinent - SOCIAL HISTORY Smoking: cigarettes (former) Substance Use: denies Physical Exam-General - PHYSICAL EXAM-ADULT Initial Vital Signs Reviewed: Yes - CONSTITUTIONAL General Appearance: alert, no apparent distress. negative: lethargic, slow to respond - HEAD, EARS, NOSE, MOUTH & THROAT HENMT: moist mucous membranes, normal ENT inspection. negative: angioedema - RESPIRATORY Respiratory: chest non-tender, lungs clear, normal breath sounds. negative: crackles, rhonchi - CARDIOVASCULAR Cardiovascular: normal peripheral pulses, regular rate, rhythm. negative: tac hycardia, systolic murmur - GASTROINTESTINAL (ABDOMEN) Abdominal Exam: normal bowel sounds, non tender, soft. negative: guarding, rebound - MUSCULOSKELETAL Extremity: erythema (right foot), swelling (right foot), other (ecchymosis to right foot) - SKIN Integumentary: ecchymosis (right foot), erythema (right foot), swelling (right foot). negative: abrasion(s), jaundice - NEUROLOGIC Neurologic: grossly normal. negative: aphasia, facial droop - PSYCHIATRIC Psych/Mental Status: normal mood/affect, oriented x 3. negative: paranoid, tearful Progress - PLAN OF CARE/RESULTS Result Diagrams: 03/08/19 05:50 03/10/19 05:55 - EKG 1 Time of EKG reading by physician:: 17:58 EKG Read and Signed by:: David Laguna EKG Interpretation (*Must complete 3 of following elements*): Abnormal Rate: 81 Rhythm: nsr [place]: left QRS: LBB Prior EKG Comparison: unchanged from prior - XRAY 1 XRAY Study: Chest Impression: See EMR Report (EXAM: CHEST-2 VIEWS HISTORY: cough TECHNIQUE: Chest two views COMPARISON: 02/24/2019 FINDINGS: The right hemidiaphragm is elevated. There are small pleural effusions. Borderline mildly prominent heart. Mild vascular distention persists. There is a right-sided pacemaker. Atelectasis versus a small infiltrate in the left lung base. IMPRESSION: Development of atelectasis and/or small infiltrate in the left lung base. Electronically signed by Richard Winston 03/03/2019 3:58 PM 03/03/19 1558 Interpreting Physician: Richard Winston MD Dictated Date/Time: 03/03/19 1557 cc: David Laguna MD; Ever Willett MD) - CONSULTS/PCP/HOSPITALIST Notification #1 *Consult/PCP/Hospitalist*: Dr. Rice Time Discussed: 16:05 Reason/Comments: Dr. Laguna consulted with Dr. Rice about patient. #2 Consult: Dr Willett Time Discussed: 17:30 Consult Disposition: Will see in ED, Admit Departure - Departure Date of Disposition Decision: 03/03/19 Time of Disposition Decision: 18:44 DIAGNOSIS: Cellulitis Disposition: ADMITTED INPATIENT 09 Certified Medical Emergency: Emergent Condition: Stable - Critical Care Note This patient required my direct & personal management of CC.: No Attestation - Physician/ DELLA Attestation Patient care was provided by Advanced Practice Provider:: No The physician spent face to face time with patient:: Yes Advanced Practice Provider documentation review:: Supervising physician onsite and consulted in the evaluation and care of this patient. The physician did have a face to face encounter with the patient. This chart was documented by the indicated scribe, (Rose Ariza Scribe) and accurately reflects the services I performed and decisions made by me, David Laguna MD, as attested by the provider's signature.
[2019-03-03] MEDS ORDERED: NS 1,000 ML IV SCH (19:20)
[2019-03-03] MEDS ORDERED: LOVENOX SUBQ SCH (19:30)
[2019-03-03] MEDS: LOVENOX SUBQ SCH (20:53)
[2019-03-03] MEDS: MIRALAX PO SCH (20:54)
[2019-03-03] MEDS: PHOSLO PO SCH (20:54)
--- NOTE | 2019-03-03 21:12 | HISTORY AND PHYSICAL ---
CHIEF COMPLAINT: Right ankle cellulitis. HISTORY OF PRESENT ILLNESS: Mr. Sage is an 88-year-old gentleman with end- stage renal disease due to hypertension and diabetes. One month ago he fell and broke his right hip, and after a stormy course he was discharged to [facility]. Today he went to see his orthopaedic surgeon, Dr. Owusu, for 1-month followup, and although his right hip seemed to be slowly improving, he was noted to have a warm red right ankle and foot with extensive ecchymosis. He did not recall any trauma and seemed otherwise quite oriented and able to answer questions reliably. He denies any shortness of breath, chest pain or other problems. He does admit his rehab progress has been quite slow, and he has been working on his arm and leg strength but not actually walking significantly. PAST MEDICAL HISTORY: Longstanding type 2 diabetes mellitus and hypertension, which together have caused his renal failure. He has been on hemodialysis for approximately [address] [facility] on Saturday, Saturday and Saturday afternoons. He has a history of systolic and diastolic heart failure, previous myocardial infarctions, coronary disease, anemia of chronic renal disease, esophageal reflux, and osteoarthritis. He also has a history of pseudogout, particularly of the left shoulder. FAMILY HISTORY: Positive for hypertension and diabetes. SOCIAL HISTORY: He is and previously lived with his and gnczof-[id number]-gxirp sitters. His 2 sons are , but Rose Mary Sage, his mpktpegz-hq-fok, is quite attentive and assists in his care. His has significant dementia. Mr. Sage is a former cigarette smoker but has not smoked in over 20 years. ALLERGIES: No known drug allergies. HOME MEDICATIONS: Acetaminophen 500 mg three times daily, aspirin 81 mg daily, Lovenox 30 mg subcutaneously daily, carvedilol 12.5 mg twice a day, Bicitra 30 mL p.o. twice a day, erythropoietin alpha 10,000 units subcutaneously Kjglrv-Uubtsdjsm-Glrsce on dialysis, Benefiber and MiraLAX mixed daily in 1 glass to prevent constipation, NPH insulin 12 units subcutaneously every morning, Imdur 30 mg p.o. every morning, Prevacid Solu-Tab 15 mg daily before breakfast, oxycodone IR 5 mg every 3 hours p.r.n. for pain, venlafaxine XR capsule 37.5 mg every morning, vitamin B12, 1000 mcg p.o. daily. REVIEW OF SYSTEMS: GENERAL: No headache, fever, chills, night sweats or weight loss. RESPIRATORY: Positive for chronic dry cough. He denies any shortness of breath, sputum production, or chronic lung disease. CARDIOVASCULAR: Multiple previous heart attacks but no recent angina. His blood pressure has been under much better control since beginning hemodialysis. GI: His appetite is fair without significant nausea, vomiting or diarrhea. : No dysuria. He produces minimal urine. MUSCULOSKELETAL: His right shoulder has severe pain with any significant range of motion. PHYSICAL EXAMINATION: VITAL SIGNS: Temperature is 97.7, blood pressure 128/74, heart rate 81, respirations 14, O2 saturation 100% on room air. GENERAL APPEARANCE: Alert and oriented and answers questions. He recognizes me. HEENT: There is no visible evidence of head trauma. His pupils are equal, round, and reactive to light. Extraocular movements are intact. The oropharynx is remarkable for poor dentition. NECK: Supple with moderate JVD while lying supine. CHEST: Clear with unlabored respirations. CARDIOVASCULAR: Regular rhythm with distant S1 and S2. No murmurs are appreciated. A pacemaker is palpable in the right subclavian area. ABDOMEN: Soft, flat and nontender with active bowel sounds. GENITAL/RECTAL: Exam deferred. EXTREMITIES: His right hip incision has healed well and has Steri-Strips adhering. His right shoulder range of motion is quite painful, although the left arm and shoulder and left leg have good range of motion. His right ankle is quite red with increased warmth. There are several purple ecchymotic areas on the medial and lateral malleoli. His pedal pulses are faint to absent bilaterally, but there is no edema. NEUROLOGIC: Mental status is normal. He has decreased sensation in his feet and ankles. LABORATORY DATA: White blood count is 9700, hemoglobin 11.4, hematocrit 37.2, platelet count normal. Sodium is 131, potassium 6.3, BUN 67, creatinine 5.8. Alkaline phosphatase, AST and ALT are all moderately elevated. His C-reactive protein is high. Albumin is 3.0. Plasma lactate is 1.8. CK and troponins are negative. ASSESSMENT: 1. Cellulitis of the right ankle, rule out arterial insufficiency and rule out trauma. There is no swelling or abrasions to indicate recent trauma. 2. Type 2 diabetes mellitus treated with insulin, with end-stage renal disease and hemodialysis. 3. Coronary artery disease with suspected severe triple-vessel disease. His EKG appears similar to his baseline with a bundle branch block, generous but unchanged T-waves. 4. End-stage renal disease with a potassium of 6. His left upper arm dialysis shunt is not pulsatile to my exam and may need some revision prior to successful use. 5. Severe osteoarthritis and pseudogout, particularly of the right shoulder. TREATMENT PLAN: One dose of intravenous vancomycin and Rocephin, with further doses to be determined in consultation with his residential sales consultant, Dr. Rice. He has already had blood cultures done. Will get an arterial Doppler of both lower extremities to check for arterial occlusive disease. Prognosis remains very limited due to multiple comorbidities. He and his DIL Rose Mary are aware. cc: Ever Willett MD MTDD
[2019-03-04] MEDS: BICITRA PO SCH ×2 (02:13→09:53)
[2019-03-04] MEDS ORDERED: BENADRYL CREAM TOP PRN (03:17)
[2019-03-04] MEDS ORDERED: HEPARIN IV PRN (06:03)
[2019-03-04] MEDS ORDERED: TIGHT: 0.2 ML/HR FOR DIALYSIS MISC PRN (06:03)
[2019-03-04] MEDS ORDERED: NS 2,000 ML MISC PRN (06:03)
[2019-03-04] MEDS: PREVACID SOLUTAB PO SCH (06:26)
--- NOTE | 2019-03-04 07:03 | EKG Report ---
Test Performed on : 03/03/2019 7:14:48 PM Test Reason : hyperkalemia Blood Pressure : / mmHG Vent. Rate : 068 BPM Atrial Rate : 091 BPM P-R Int : 000 ms QRS Dur : 216 ms QT Int : 494 ms P-R-T Axes : 000 -66 106 degrees QTc Int : 525 ms Ventricular-paced rhythm Abnormal ECG When compared with ECG of 03-MAR-2019 17:58, (Unconfirmed) Electronic ventricular pacemaker has replaced Sinus rhythm. Confirmed by Jaja العراقي, George ([id number]) on 03/04/2019 8:56:44 AM
[2019-03-04] MEDS ORDERED: TAZIDIME 2 GM in NS 100 ML IV SCH (07:30)
[2019-03-04] MEDS ORDERED: VANCOMYCIN 1 GM/NS 1 GM/250 ML IVPB IV SCH (07:30)
[2019-03-04] MEDS ORDERED: HUMULIN N SUBQ SCH (09:00)
[2019-03-04] MEDS ORDERED: EPOGEN SUBQ SCH (09:00)
[2019-03-04] MEDS: ASPIRIN PO SCH (09:52)
[2019-03-04] MEDS: BENEFIBER PACKET PO SCH (09:52)
[2019-03-04] MEDS: EFFEXOR XR PO SCH (09:54)
[2019-03-04] MEDS: VITAMIN B-12 PO SCH (09:54)
[2019-03-04] MEDS: THERA M PLUS PO SCH (09:55)
[2019-03-04] MEDS: IMDUR PO SCH (09:55)
--- NOTE | 2019-03-04 09:55 | NEPHROLOGY CONSULTATION ---
DATE: 03/04/2019 REASON FOR ADMISSION: Cellulitis to his right ankle date. REASON FOR CONSULTATION: End-stage renal disease associated with hyperkalemia with medical assistance. CONSULTING PHYSICIAN: Is Dr. Curtis. HISTORY OF PRESENT ILLNESS: Mr. Sage is an 88-year-old white male who is known to our outpatient services for hemodialysis on Saturday, Saturday, Saturday at the [facility]. The patient had actually fallen approximately 1 month ago and had broken his right hip. He was taken to [facility] for rehab. Unfortunately, he was admitted again last week for a nonfunctioning hemodialysis AV fistula to the left upper arm. This was evaluated. The patient was sent to Dr. Owusu's office for 1 month follow-up on his right hip, which seem to be improving. Unfortunately, they had found a warm red swelling to his right ankle with some extensive ecchymosis. The patient does not recall any recent falls or any trauma. He currently denies any chest pain, no increased work of breathing, no increased lower extremity swelling. No nausea, vomiting or diarrhea though he does admit to a chronic decrease in his appetite. He states that he has poor strength, but has not been up walking. No recent falls noted by patient. PAST MEDICAL HISTORY: End-stage renal disease with hemodialysis on Saturday, Saturday, Saturday at the [facility], long-standing diabetes mellitus type 2, hypertension. He has systolic and diastolic heart failure, myocardial infarctions, coronary artery disease, anemia of chronic disease, esophageal reflux, osteoarthritis. The patient has history of pseudogout previously noted to the left shoulder. He has osteodystrophy of chronic disease. SOCIAL HISTORY: He is . He currently lives with his . He does have around the clock sitters. He has sons who are sons who are , a [id number]-[id number] who is attentive to his care. He is a former cigarette smoker. Denies alcohol or illicit drug use. ALLERGIES: No known drug allergies. MEDICATIONS ARE: Acetaminophen, aspirin, Lovenox, carvedilol, Bicitra, erythropoietin, Benefiber, MiraLAX, NPH insulin, Imdur, Prevacid, oxycodone IR p.r.n., venlafaxine XR, vitamin B12, patient also receives Rocaltrol, Dialyvite, and IV iron if indicated on the outpatient clinic. REVIEW OF SYSTEMS: As best obtained with pertinent positives listed above in the HPI x10. VITAL SIGNS: Temperature 97.9 pressure 145/68, heart rate respirations 22. He is on room air. Last recorded saturation is 94% he 517, he has had 0 recorded out. LABORATORY DATA: The patient's most recent labs show a hemoglobin of 11.4. Previous potassium of 6.3. Plasma lactate of 1.8. Blood cultures are currently pending. Labs have been ordered, these are currently pending. PHYSICAL EXAMINATION: General: This is an 88-year-old frail white male resting quietly in bed. He appears chronically ill. He is in no acute distress. Skin: Warm and dry. HEENT: Normocephalic, atraumatic, conjunctiva is pale. The patient has slight arcus senilis. Oropharynx has poor dentition. Mucous membranes are dry. Neck: Supple trachea midline. He has negative JVD in the upright position. Cardiovascular: He is regular rate and rhythm. No murmur or gallop appreciated. Palpable pacemaker to the left chest wall. Lungs: Clear to auscultation bilaterally. Equal excursion on room air. Abdomen: Soft nontender positive bowel sounds. Extremities: No edema. No clubbing or cyanosis. Integumentary: Patient has hip incision well healed. Steri-Strips remain in place. Right ankle is erythematous with an ecchymotic area to the medial and lateral malleoli. Decreased pulses. Warm to touch. Neurological: He is alert to person and to place. ASSESSMENT AND PLAN: 1. Chronic kidney disease stage 5D. The patient is due for his routine dialysis treatment today. We will place him on a 2 K bath he is to dialyze for 3.5 hours. We will attempt to pull patient to his outpatient dry weight. 2. Electrolytes and acid-base balance. Patient had a previous hyperkalemia with plan for correction on dialysis. 3. Anemia, this is acceptable. Last noted at 11.4. 4. Cellulitis of right ankle. The patient has known arterial insufficiency, followed by the primary care. 5. Malnutrition. Patient appears to be dwindling over the last month. We will start IDPN while on dialysis. 6. Severe osteoarthritis with noted cellulitis. We will renal dose his vancomycin and his Fortaz and we will stop his intravenous fluids. 7. Poor access function. Discuss with surgery tomorrow. rg I would like to thank you for allowing us to follow with this patient. Dictated by LEYDA Vo for Curtis Rice MD Face to face encounter, data reviewed, discussed with Clovis Wei on 03/04/19. I agree with the above assessment and plan of care. rg cc: LEYDA Vo MD Russell T. Barr, MD [facility]
[2019-03-04] MEDS: PHOSLO PO SCH (09:56)
[2019-03-04] MEDS: VITAMIN C PO SCH (09:56)
[2019-03-04] MEDS: EPOGEN SUBQ SCH (10:14)
[2019-03-04 10:22] LABS: ALBUMIN 2.9 g/dL (3.5-5.0); CALCIUM 8.9 mg/dL (8.8-10.2); PHOSPHORUS 4.9 mg/dL (2.7-4.5)
[2019-03-04 10:29] LABS: POTASSIUM 6.5 mmol/L (3.5-5.1)
[2019-03-04] MEDS ORDERED: TAZIDIME 2 GM in NS 100 ML IV ONE (17:00)
[2019-03-04] MEDS ORDERED: VANCOMYCIN 1 GM/NS 1 GM/250 ML IVPB IV ONE (18:00)
[2019-03-04] MEDS: LOVENOX SUBQ SCH (23:53)
[2019-03-05] MEDS: PHOSLO PO SCH ×3 (05:25→20:19)
[2019-03-05] MEDS: MIRALAX PO SCH ×2 (05:26→20:18)
[2019-03-05] MEDS: BICITRA PO SCH ×3 (05:26→20:17)
[2019-03-05] MEDS ORDERED: NS 2,000 ML MISC PRN (06:58)
[2019-03-05] MEDS ORDERED: TIGHT: 0.2 ML/HR FOR DIALYSIS MISC PRN (06:58)
[2019-03-05] MEDS ORDERED: HEPARIN IV PRN (06:58)
[2019-03-05] MEDS: PREVACID SOLUTAB PO SCH (07:05)
[2019-03-05 07:08] LABS: ALBUMIN 2.8 g/dL (3.5-5.0); CALCIUM 8.4 mg/dL (8.8-10.2); CREATININE 5.3 mg/dL (0.7-1.2); PHOSPHORUS 5.3 mg/dL (2.7-4.5)
[2019-03-05 07:41] LABS: POTASSIUM 6.6 mmol/L (3.5-5.1)
[2019-03-05] MEDS: OXY IR PO PRN (09:36)
--- NOTE | 2019-03-05 09:41 | NEPHROLOGY PROGRESS NOTE ---
DATE: 03/05/2019 DATE AND TIME SEEN: 03/05/2019 at 0640. SUBJECTIVE: Mr. Sage is currently resting quietly in bed, head of the bed is elevated. He is on room air. He states that he is short of breath. Complains of weakness. OBJECTIVE: MOST RECENT VITAL SIGNS: His last temperature 97.6 degrees, blood pressure 112/51, heart rate 97, respirations 14. He is on room air, last recorded saturation is 100%. He has had 512 in, he has had 2 L removed off dialysis yesterday. LABORATORY DATA: His sodium is 129, potassium is 6.6, his CO2 19, BUN of 61 with a creatinine of 5.3, glucose of 84. The patient has an anion gap of 18. His calcium is 8.4 phosphorus 5.3, albumin is 2.8. The patient had a previous hemoglobin of 11.4 on his admission. PHYSICAL EXAMINATION: General: This is an 88-year-old elderly male who is currently resting quietly in bed. He appears ill. He is in mild distress with increased work of breathing. HEENT: He is normocephalic, atraumatic. Conjunctivae is pale. Mucous membranes are dry. Neck: Supple. Trachea midline. The patient appears to have positive JVD. Cardiovascular: He is regular rate and rhythm. Slightly tachycardic. Lungs: Clear to auscultation anteriorly. Equal excursion on room air. Abdomen: Soft, nontender. Positive bowel sounds. Genitourinary: Not inspected. Minimal void with dialysis assist. 2 L removed yesterday. Extremities: He does have 2+ lower extremity edema up into the mid thigh/hip region. Integumentary: Patient has a fistula to the left upper arm. This has a dressing in place, with bruising to both upper and lower extremities with different stages of healing of ecchymosis. Neurological: He is alert and oriented x3, though weak. ASSESSMENT AND PLAN: 1. Chronic kidney disease stage 5D. Patient had his routine dialysis treatment yesterday. Secondary to his current findings with fluid volume overload. We will place him on dialysis today. He is to be on a 2 K bath. He is to dialyze for 3.5 hours. We will attempt to challenge his dry weight by 2 L from his post dry weight yesterday. 2. Electrolytes and acid-base balance. Patient is hyperkalemic. We will plan for correction on dialysis today. 3. Anemia. This is low but stable. 4. Cellulitis to right ankle. This is being followed by the primary care. 5. Malnutrition. We will plan for IDPN to be given while on dialysis. 6. Severe osteoarthritis with noted cellulitis. The patient is currently dosed with vancomycin and Fortaz after dialysis. 7. Poor access function. The patient has been having routine dialysis treatments, decreased flow. May possibly be related to why he continues with rebound hyperkalemia. Dr. Rice to discuss with the surgeon. I would like to thank you for allowing us to follow with this patient. Dictated by LEYDA Vo for Curtis Rice MD Face to face encounter, data reviewed, discussed with Clovis Wei on 03/06/19. I agree with the above assessment and plan of care. cc: LEYDA Vo MD Russell T. Barr, MD [facility]
[2019-03-05] MEDS ORDERED: ALBUMIN 25% IV ONE (11:52)
[2019-03-05] MEDS: D50W 250 ML, AMINOSYN 15% 500 ML, LIPOSYN 20% 250 ML IV SCH ×3 (14:50)
[2019-03-05] MEDS ORDERED: TAZIDIME 2 GM in NS 100 ML IV ONE (17:00)
--- NOTE | 2019-03-05 17:12 | VASCULAR LAB ---
DATE: 03/03/2019 DOCUMENTATION CONSULTANT: Meneses. REQUESTING PHYSICIAN: Ever Willett MD. INDICATIONS: Left heel ulcer with right leg cellulitis. FINDINGS: Brachial on the right is 124, on the left not obtained. High thigh on the right is 250, on the left 250. Low thigh on the right is 200, on the left 250. Calf on the right is 250, on the left 250. DP on the right is 138, on the left 250. PT on the right is 250, on the left 73. CELINA on the right is 2.02, on the left 2.02. There is lack of compressibility noted at several locations starting distally in the thighs and extending down to the calves with an elevated CELINA bilaterally. 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 CONCLUSIONS: Although he has pulsatile flow noted to the level of the ankles bilaterally, suspect there is some degree of atherosclerotic changes noted. Recommend correlation with angiography as clinically indicated. cc: MD Ever Patino MD
--- NOTE | 2019-03-05 17:27 | VASCULAR LAB ---
DATE: 03/04/2019 LEFT TRANSLOCATED BRACHIOBASILIC FISTULA DUPLEX STUDY OILSEED MEAT PRESSER: Zaira. REQUESTING PHYSICIAN: Dr. Curtis Rice. INDICATION: Evaluate function. FINDINGS: The left translocated brachiobasilic fistula was imaged along its course. The anastomosis is patent with appropriate velocities here. There is a curve or swing point in the more proximal fistula, beyond which the velocities drop significantly and become more venous wave form. There is no clear stenosis here. SUMMARY: There does appear to be a patent arteriovenous fistula with significantly diminished flows more proximally just beyond the curve of the fistula. cc: MD Curtis Patino MD Russell T. Barr, MD
[2019-03-05] MEDS: ASPIRIN PO SCH (17:50)
[2019-03-05] MEDS: BENEFIBER PACKET PO SCH (17:50)
[2019-03-05] MEDS: EFFEXOR XR PO SCH (17:51)
[2019-03-05] MEDS: IMDUR PO SCH (17:51)
[2019-03-05] MEDS: THERA M PLUS PO SCH (17:51)
[2019-03-05] MEDS: VITAMIN B-12 PO SCH (17:52)
[2019-03-05] MEDS: VITAMIN C PO SCH (17:52)
[2019-03-05] MEDS ORDERED: VANCOMYCIN 1 GM/NS 1 GM/250 ML IVPB IV ONE (18:00)
[2019-03-05] MEDS: LOVENOX SUBQ SCH (20:18)
[2019-03-06] MEDS: PREVACID SOLUTAB PO SCH (07:05)
[2019-03-06 07:40] LABS: ALBUMIN 3.2 g/dL (3.5-5.0); CALCIUM 8.9 mg/dL (8.8-10.2); CREATININE 5.5 mg/dL (0.7-1.2); PHOSPHORUS 4.6 mg/dL (2.7-4.5)
[2019-03-06 07:41] LABS: POTASSIUM 6.4 mmol/L (3.5-5.1)
[2019-03-06] MEDS ORDERED: NS 2,000 ML MISC PRN (08:11)
[2019-03-06] MEDS: ASPIRIN PO SCH (08:31)
[2019-03-06] MEDS: BENEFIBER PACKET PO SCH (08:32)
[2019-03-06] MEDS: BICITRA PO SCH ×2 (08:34→22:26)
[2019-03-06] MEDS: IMDUR PO SCH (08:35)
[2019-03-06] MEDS: THERA M PLUS PO SCH (08:36)
[2019-03-06] MEDS: PHOSLO PO SCH ×2 (08:36→22:26)
[2019-03-06] MEDS: VITAMIN C PO SCH (08:37)
[2019-03-06] MEDS: VITAMIN B-12 PO SCH (08:37)
[2019-03-06] MEDS: EFFEXOR XR PO SCH (08:43)
[2019-03-06] MEDS ORDERED: ZOFRAN IV ONE (09:06)
[2019-03-06] MEDS: D50W 250 ML, AMINOSYN 15% 500 ML, LIPOSYN 20% 250 ML IV SCH ×3 (10:43)
[2019-03-06] MEDS: HUMULIN N SUBQ SCH (13:00)
[2019-03-06] MEDS: EPOGEN SUBQ SCH (14:27)
[2019-03-06] MEDS ORDERED: VANCOMYCIN 1 GM/NS 1 GM/250 ML IVPB IV SCH (17:00)
[2019-03-06] MEDS ORDERED: TAZIDIME 2 GM in NS 100 ML IV SCH (18:00)
--- NOTE | 2019-03-06 19:00 | NEPHROLOGY PROGRESS NOTE ---
DATE: 03/06/2019 SUBJECTIVE: He continues to relate that he feels bad but does not localize. Not eating well. No vomiting or shortness of breath. OBJECTIVE: Vital Signs: Blood pressure 99/83, heart rate 83, respiration 18, afebrile. General: No acute distress. Skin: Warm and dry except as below. Conjunctivae are pink. Neck: Neck veins are not distended. Heart: Regular. Lungs: Equal, shallow. No crackles. Abdomen: Soft, nontender. Bowel sounds are present. Extremities: With 2+ edema. No clubbing or cyanosis. IMPRESSION: 1. Chronic kidney disease 5D. He is undergoing dialysis for consecutive days. There has been some concern about quality of his dialysis because his potassium has remained elevated. Urea reduction ratio today was 63 which is borderline low but should not explain his potassium of over 6. We will monitor this again in the morning. Certainly this is concerning for tissue ischemia. He is receiving intradialytic parenteral nutrition but no other potassium source. 2. Cellulitis/ischemia. His foot is no better on exam today. 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 We will recheck his parathyroid hormone level. 3. Anemia in target. 4. Malnutrition receiving intradialytic parenteral nutrition. cc: MD Ever Valentine MD
[2019-03-06] MEDS: MIRALAX PO SCH (22:26)
[2019-03-06] MEDS: LOVENOX SUBQ SCH (22:27)
[2019-03-07] MEDS: PREVACID SOLUTAB PO SCH (06:20)
[2019-03-07 07:29] LABS: ALBUMIN 3.3 g/dL (3.5-5.0); CALCIUM 8.8 mg/dL (8.8-10.2); CREATININE 4.9 mg/dL (0.7-1.2); PHOSPHORUS 4.1 mg/dL (2.7-4.5); POTASSIUM 5.5 mmol/L (3.5-5.1)
[2019-03-07] MEDS ORDERED: TAZIDIME 2 GM in NS 100 ML IV ONE (11:40)
[2019-03-07] MEDS: BENEFIBER PACKET PO SCH (11:40)
[2019-03-07] MEDS: ASPIRIN PO SCH (11:40)
[2019-03-07] MEDS ORDERED: VANCOMYCIN 1 GM/NS 1 GM/250 ML IVPB IV ONE (11:40)
[2019-03-07] MEDS: EFFEXOR XR PO SCH (11:41)
[2019-03-07] MEDS: HUMULIN N SUBQ SCH (11:42)
[2019-03-07] MEDS: VITAMIN C PO SCH (11:45)
[2019-03-07] MEDS: VITAMIN B-12 PO SCH (11:46)
[2019-03-07] MEDS: THERA M PLUS PO SCH (11:47)
[2019-03-07] MEDS: IMDUR PO SCH (11:48)
[2019-03-07] MEDS: BICITRA PO SCH ×2 (12:32→21:22)
--- NOTE | 2019-03-07 15:49 | NEPHROLOGY PROGRESS NOTE ---
DATE: 03/07/2019 Mr. Sage is sitting up in the chair. He remains very fatigued. He did not really eat his lunch. No real shortness of breath. Blood pressure 122/33, heart rate 87, respirations 16, afebrile. His exam is unchanged. We once again discussed the overall goals of care and he stated today that he would love to quit doing dialysis but "I just can't." He would like us to continue his current level of care. We will gladly provide. cc: MD Ever Valentine MD
[2019-03-07] MEDS: PHOSLO PO SCH ×2 (17:17→21:22)
[2019-03-07] MEDS: REMERON PO SCH (21:22)
[2019-03-07] MEDS: MIRALAX PO SCH (21:23)
[2019-03-07] MEDS: LOVENOX SUBQ SCH (21:23)
[2019-03-08] MEDS: PREVACID SOLUTAB PO SCH (06:36)
[2019-03-08 06:51] LABS: BASO# 0.04 X1000 (0.0-0.2); BASO% 0.4 % (0.0-0.8); EOS# 0.66 X1000 (0.0-0.7); EOS% 6.8 % (0.0-10.0); HEMATOCRIT 36.9 % (42.0-52.0); HEMOGLOBIN 11.2 g/dL (14.0-18.0); LYMPH# 1.32 X1000 (1.2-3.4); LYMPH% 13.5 % (20.5-51.1); MCH 30.9 PG (27-31); MCHC 30.4 g/dL (33-37); MCV 101.9 FL (81-99); MONO# 1.33 X1000 (0.11-0.59); MONO% 13.6 % (1.7-9.3); MPV 11.6 FL (7.4-10.4); NEUT% 65.7 % (42.2-75.2); PLT 244 X1000 (130-400); RBC 3.62 XMIL (4.7-6.1); RDW 18.2 % (11.5-14.5); WBC 9.75 X1000 (4.8-10.8)
[2019-03-08 07:15] LABS: ALBUMIN 3.3 g/dL (3.5-5.0); CALCIUM 8.9 mg/dL (8.8-10.2); CREATININE 5.6 mg/dL (0.7-1.2); PHOSPHORUS 3.9 mg/dL (2.7-4.5); POTASSIUM 5.7 mmol/L (3.5-5.1)
--- NOTE | 2019-03-08 09:37 | PROGRESS NOTE ---
DATE: 03/08/2019 SUBJECTIVE: The patient is sitting in bed. He states he has no immediate needs. OBJECTIVE: Vital signs: Temperature 97.4, pulse 81, respiratory rate 14, blood pressure 115/81, 100% saturated on room air. General: He is a thin, white male who is in no acute distress. He seems alert, oriented. He is conversive and appropriate. Answers questions appropriately. Lungs: Clear. Cardiovascular: Regular. Skin: The patient is covered with variable levels of ecchymoses. His left great toe has an ulceration in it, but the rest of the foot is of normal coloration. The right foot and leg have some redness from the ankle moving upward to the mid pretibial area. It is slightly warm, but not hot. It does not appear to be tender. LABORATORY: White cell count 9.7, hematocrit 36.9, BUN 64, creatinine 5.6. ASSESSMENT AND PLAN: 1. The patient's cellulitis of the right ankle is being treated with antibiotics. Based on other chart entries this appears to be improving somewhat. His white cell count is normal. 2. The patient has end-stage renal disease and is on dialysis on Saturday, Saturday, Saturday, so he is scheduled for tomorrow. 3. The patient short-term and long-term prognosis with the constellation of issues that he has is very poor. I am not sure that at this point, he could return to independent living. cc: MD Ever Larsen MD
[2019-03-08] MEDS: BENEFIBER PACKET PO SCH (09:56)
[2019-03-08] MEDS: ASPIRIN PO SCH (09:56)
[2019-03-08] MEDS: BICITRA PO SCH ×2 (09:57→20:36)
[2019-03-08] MEDS: HUMULIN N SUBQ SCH (09:57)
[2019-03-08] MEDS: EFFEXOR XR PO SCH (09:57)
[2019-03-08] MEDS: THERA M PLUS PO SCH (09:58)
[2019-03-08] MEDS: IMDUR PO SCH (09:58)
[2019-03-08] MEDS: PHOSLO PO SCH ×2 (09:58→20:37)
[2019-03-08] MEDS: VITAMIN C PO SCH (09:59)
[2019-03-08] MEDS: VITAMIN B-12 PO SCH (09:59)
[2019-03-08] MEDS: OXY IR PO PRN (10:00)
[2019-03-08] MEDS: LOVENOX SUBQ SCH (20:36)
[2019-03-08] MEDS: MIRALAX PO SCH (20:37)
[2019-03-08] MEDS: REMERON PO SCH (20:37)
[2019-03-09] MEDS: PREVACID SOLUTAB PO SCH (06:18)
[2019-03-09] MEDS ORDERED: NS 2,000 ML MISC PRN (07:28)
[2019-03-09] MEDS ORDERED: HEPARIN IV PRN (07:28)
[2019-03-09] MEDS ORDERED: TIGHT: 0.2 ML/HR FOR DIALYSIS MISC PRN (07:28)
[2019-03-09 07:38] LABS: ALBUMIN 3.3 g/dL (3.5-5.0); CALCIUM 9.3 mg/dL (8.8-10.2); CREATININE 6.1 mg/dL (0.7-1.2); PHOSPHORUS 4.2 mg/dL (2.7-4.5)
[2019-03-09 08:38] LABS: POTASSIUM 6.2 mmol/L (3.5-5.1)
[2019-03-09] MEDS: EPOGEN SUBQ SCH (09:33)
--- NOTE | 2019-03-09 10:04 | NEPHROLOGY PROGRESS NOTE ---
DATE: 03/09/2019 SUBJECTIVE: Patient currently is resting in bed. He is extremely drowsy and difficult to arouse to wake up and talk. With significant verbal stimuli, he will arouse. He drifts off back to sleep. Nurse was called to the bedside. She stated that he was in a deep sleep this morning and has had no sedation. OBJECTIVE: Vital Signs: Temperature 98 degrees, pulse 79, respiratory rate 20, blood pressure 116/63. Intake 630 mL. Output not recorded. Physical Examination: General: This is an elderly gentleman resting in the bed. Again, he is extremely drowsy. He can state who he is and his birthday after vigorous verbal and tactile stimuli. HEENT: Normocephalic, atraumatic. Conjunctivae pale. Neck: Supple. Trace JVD. Cardiovascular: Regular rate and rhythm. Pulmonary: He has decreased breath sounds but no rales. Abdomen: Soft, with positive bowel sounds. : Not inspected. Extremities: He has bruising, ecchymoses noted of bilateral upper and lower extremities. Left lower extremity remains in a boot. Neurologic: Again, quite drowsy. Does orient to person. Lab Data: Sodium 134, potassium 6.2, chloride 90, CO2 24, BUN 77, creatinine 6.1, albumin 3.3. ASSESSMENT AND PLAN: 1. Chronic kidney disease 5D. We will dialyze him today on a 2 K bath/2 L, 3.5 hour treatment. He did undergo hemodialysis duplex which indicated a patent arteriovenous fistula with significantly diminished flows proximally just beyond the curve of the fistula. Continue dialysis. 2. Cellulitis, ischemia. His PTH level was 87. This is only slightly elevated. Calcium is in normal level. Phosphorus is acceptable. Continue to monitor closely. 3. Nutrition. He continues with intradialytic parenteral nutrition. 4. Disposition. I spoke to Mr. Sage over the weekend but he was unwilling to stop dialysis. Dictated by LEYDA Campos for Curtis Rice MD Face to face encounter, data reviewed, discussed with Jose Mackenzie on 03/09/19. I agree with the above assessment and plan of care. cc: MD Ever Valentine MD [facility]
[2019-03-09] MEDS: D50W 250 ML, AMINOSYN 15% 500 ML, LIPOSYN 20% 250 ML IV SCH ×3 (16:26)
[2019-03-09] MEDS ORDERED: TAZIDIME 2 GM in NS 100 ML IV ONE (17:00)
[2019-03-09] MEDS ORDERED: VANCOMYCIN 1 GM/NS 1 GM/250 ML IVPB IV ONE (18:00)
[2019-03-09] MEDS: PHOSLO PO SCH ×2 (22:49→23:11)
[2019-03-09] MEDS: BICITRA PO SCH ×2 (22:49→23:11)
[2019-03-09] MEDS: REMERON PO SCH ×2 (22:49→23:12)
[2019-03-09] MEDS: MIRALAX PO SCH ×2 (22:50→23:12)
[2019-03-09] MEDS: LOVENOX SUBQ SCH (22:51)
[2019-03-10 07:02] LABS: ALBUMIN 2.9 g/dL (3.5-5.0); CALCIUM 9.2 mg/dL (8.8-10.2); CREATININE 6.1 mg/dL (0.7-1.2); PHOSPHORUS 4.5 mg/dL (2.7-4.5)
[2019-03-10] MEDS: PREVACID SOLUTAB PO SCH (07:51)
[2019-03-10 07:57] LABS: POTASSIUM 6.3 mmol/L (3.5-5.1)
--- NOTE | 2019-03-10 08:37 | NEPHROLOGY PROGRESS NOTE ---
DATE: 03/10/2019 SUBJECTIVE: Patient resting in bed. He awakens easily this morning to name. He recognizes providers at the bedside. OBJECTIVE: Vital Signs: Temperature 97.7 degrees, pulse 83, respiratory rate 18, blood pressure 111/48. Intake 150 mL; output 2 L. General: This is an elderly gentleman resting in bed. He does not appear in any distress. HEENT: Normocephalic atraumatic. Conjunctivae remain pale. Oral mucosa is moist. Neck: Supple. No JVD appreciated. Pulmonary: Decreased breath sounds, but no rales or rhonchi. Cardiovascular: Regular rate and rhythm. Abdomen: Soft, positive bowel sounds. : Not inspected. Extremities: He has bruising ecchymoses noted and erythema noted to the right lower extremity. The left lower extremity does not have the boot on today. Does have some vascular changes noted to the toes. Neurological: He is more alert today. LAB DATA: Pending. ASSESSMENT AND PLAN: 1. Chronic kidney disease 5 D: We dialyzed yesterday without difficulty. We will plan to hold dialysis today. We will discuss with Surgery regarding his fistula flow and possible treatment plan. 2. Cellulitis, ischemia: Continue to monitor. 3. Nutrition: He continues with intradialytic parenteral nutrition during dialysis. Dictated by LEYDA Campos for Curtis Rice MD Face to face encounter, data reviewed, discussed with Jose Mackenzie on 03/10/19. I agree with the above assessment and plan of care. cc: MD Ever Valentine MD [facility]
[2019-03-10] MEDS: EFFEXOR XR PO SCH ×2 (13:29→21:11)
[2019-03-10] MEDS: BICITRA PO SCH ×2 (13:29→21:10)
[2019-03-10] MEDS: ASPIRIN PO SCH (13:29)
[2019-03-10] MEDS: BENEFIBER PACKET PO SCH (13:29)
[2019-03-10] MEDS: IMDUR PO SCH (13:30)
[2019-03-10] MEDS: HUMULIN N SUBQ SCH (13:30)
[2019-03-10] MEDS: THERA M PLUS PO SCH (13:30)
[2019-03-10] MEDS: PHOSLO PO SCH ×2 (13:30→21:14)
[2019-03-10] MEDS: VITAMIN C PO SCH (13:32)
[2019-03-10] MEDS: VITAMIN B-12 PO SCH (13:32)
[2019-03-10] MEDS: LOVENOX SUBQ SCH (21:12)
[2019-03-10] MEDS: MIRALAX PO SCH (21:13)
[2019-03-10] MEDS: OXY IR PO PRN (21:17)
[2019-03-11] MEDS: REMERON PO SCH ×2 (03:40→22:52)
[2019-03-11] MEDS ORDERED: TIGHT: 0.2 ML/HR FOR DIALYSIS MISC PRN (05:56)
[2019-03-11] MEDS ORDERED: NS 2,000 ML MISC PRN (05:56)
[2019-03-11] MEDS ORDERED: HEPARIN IV PRN (05:56)
[2019-03-11 06:41] LABS: ALBUMIN 3.1 g/dL (3.5-5.0); CREATININE 6.7 mg/dL (0.7-1.2); PHOSPHORUS 5.2 mg/dL (2.7-4.5)
[2019-03-11 06:42] LABS: POTASSIUM 6.5 mmol/L (3.5-5.1)
--- NOTE | 2019-03-11 08:06 | NEPHROLOGY PROGRESS NOTE ---
DATE: 03/11/2019 SUBJECTIVE: Patient resting in bed. He awakens easily. He is oriented and alert. OBJECTIVE: Vital Signs: Temperature 98.3 degrees, pulse 82, respiratory rate 15, blood pressure 126/74, intake 1.4 L, output not measured. General: Elderly gentleman resting in bed. No acute distress. HEENT: Normocephalic, atraumatic. He has multiple missing teeth. Oral mucosa moist. Neck: Supple without JVD. Cardiovascular: Regular rate and rhythm. Pulmonary: He has equal excursion. There is no rales. Abdomen: Soft, positive bowel sounds. : Not inspected. Extremities: No clubbing, cyanosis. Left lower extremity is in a boot. Right lower extremity with significant erythema and ecchymoses continues. ASSESSMENT AND PLAN: 1. Chronic kidney disease 5D. Today is his routine dialysis day. We will go ahead and plan to dialyze as it does not appear any decisions will be made until tomorrow when family members can come up. We will continue dialysis as long as desired. 2. Disposition: The family is trying to make a decision whether to continue the patient on dialysis versus moving to LTAC versus SNF and possibly continuing dialysis or to transition to comfort care. 3. Cellulitis ischemia followed by primary. 4. Nutrition. Continue IDPN. 5. Hyperkalemia. He is on a 2K bath today for dialysis. Dictated by LEYDA Campos for Curtis Rice MD Face to face encounter, data reviewed, discussed with Jose Mackenzie on 03/11/19. I agree with the above assessment and plan of care. cc: MD Ever Valentine MD [facility]
[2019-03-11] MEDS: PREVACID SOLUTAB PO SCH (08:07)
[2019-03-11] MEDS: D50W 250 ML, AMINOSYN 15% 500 ML, LIPOSYN 20% 250 ML IV SCH ×3 (13:29)
[2019-03-11] MEDS: EPOGEN SUBQ SCH (16:28)
[2019-03-11] MEDS: VITAMIN B-12 PO SCH (17:41)
[2019-03-11] MEDS: VITAMIN C PO SCH (17:41)
[2019-03-11] MEDS: EFFEXOR XR PO SCH (17:41)
[2019-03-11] MEDS: HUMULIN N SUBQ SCH (17:42)
[2019-03-11] MEDS: BICITRA PO SCH ×3 (17:42→22:48)
[2019-03-11] MEDS: PHOSLO PO SCH ×3 (17:42→22:51)
[2019-03-11] MEDS: THERA M PLUS PO SCH (17:42)
[2019-03-11] MEDS: IMDUR PO SCH (17:42)
[2019-03-11] MEDS: BENEFIBER PACKET PO SCH (17:43)
[2019-03-11] MEDS: ASPIRIN PO SCH (17:43)
[2019-03-11] MEDS: LOVENOX SUBQ SCH (22:45)
[2019-03-11] MEDS: MIRALAX PO SCH (22:53)
[2019-03-12] MEDS: PREVACID SOLUTAB PO SCH (05:59)
[2019-03-12 07:21] LABS: ALBUMIN 3.1 g/dL (3.5-5.0); CALCIUM 8.9 mg/dL (8.8-10.2); CREATININE 6.2 mg/dL (0.7-1.2); PHOSPHORUS 4.1 mg/dL (2.7-4.5); POTASSIUM 5.9 mmol/L (3.5-5.1)
[2019-03-12] MEDS: ASPIRIN PO SCH (09:43)
[2019-03-12] MEDS: EFFEXOR XR PO SCH (09:43)
[2019-03-12] MEDS: BENEFIBER PACKET PO SCH (09:43)
[2019-03-12] MEDS: VITAMIN B-12 PO SCH (09:43)
[2019-03-12] MEDS: BICITRA PO SCH ×2 (09:43→20:55)
[2019-03-12] MEDS: THERA M PLUS PO SCH (09:44)
[2019-03-12] MEDS: VITAMIN C PO SCH (09:44)
[2019-03-12] MEDS: PHOSLO PO SCH ×2 (09:44→20:55)
[2019-03-12] MEDS: IMDUR PO SCH (09:44)
[2019-03-12] MEDS: HUMULIN N SUBQ SCH (09:50)
[2019-03-12] MEDS: REMERON PO SCH (20:55)
[2019-03-12] MEDS: LOVENOX SUBQ SCH (20:55)
[2019-03-12] MEDS: MIRALAX PO SCH (20:55)
[2019-03-13] MEDS ORDERED: TIGHT: 0.2 ML/HR FOR DIALYSIS MISC PRN (06:01)
[2019-03-13] MEDS ORDERED: NS 2,000 ML MISC PRN (06:01)
[2019-03-13] MEDS ORDERED: HEPARIN IV PRN (06:01)
[2019-03-13] MEDS: PREVACID SOLUTAB PO SCH (06:14)
[2019-03-13 06:37] LABS: CALCIUM 8.9 mg/dL (8.8-10.2); CREATININE 6.6 mg/dL (0.7-1.2); PHOSPHORUS 4.4 mg/dL (2.7-4.5)
[2019-03-13 07:28] LABS: POTASSIUM 6.4 mmol/L (3.5-5.1)
[2019-03-13] MEDS: PHOSLO PO SCH ×2 (08:07→21:51)
[2019-03-13] MEDS: EFFEXOR XR PO SCH (08:07)
[2019-03-13] MEDS: BICITRA PO SCH ×2 (08:08→21:50)
[2019-03-13] MEDS: IMDUR PO SCH (08:08)
[2019-03-13] MEDS: VITAMIN B-12 PO SCH (08:08)
[2019-03-13] MEDS: THERA M PLUS PO SCH (08:08)
[2019-03-13] MEDS: VITAMIN C PO SCH (08:08)
[2019-03-13] MEDS: ASPIRIN PO SCH (08:08)
[2019-03-13] MEDS: BENEFIBER PACKET PO SCH (08:14)
--- NOTE | 2019-03-13 08:37 | NEPHROLOGY PROGRESS NOTE ---
DATE: 03/12/2019 TIME SEEN: 6:30 SUBJECTIVE: Patient resting in bed. He has no complaints this morning. He is more awake and alert. OBJECTIVE: Vital signs: Temperature 97, pulse 81, respiratory rate 18, blood pressure 116/95, intake 475 mL, output 1 L ultrafiltrate on dialysis. General: Elderly gentleman resting in bed, no acute distress. HEENT: Normocephalic, atraumatic. No JVD appreciated. Pulmonary: Clear bilaterally. No rales or rhonchi. Cardiovascular: Regular rate and rhythm. Abdomen: Soft with positive bowel sounds. : Not inspected. Extremities: Continues with ecchymosis and bruising. Erythema of right lower extremity. Left lower extremity in a boot. Integumentary: Skin warm and dry otherwise. Neurologic: Again more alert. LAB DATA: None. He had dialysis yesterday. ASSESSMENT AND PLAN: 1. Chronic kidney disease 5D. Will plan to dialyze. We dialyzed the patient yesterday, no issues. Continue dialysis as warranted and decide about a care plan. 2. Electrolytes, acid-base balance, anemia. These have been stable. 3. Nutrition. Continue IDPN. Dictated by LEYDA Campos for Curtis Rice MD Face to face encounter, data reviewed, discussed with Jose Mackenzie on 03/12/19. I agree with the above assessment and plan of care. cc: MD Ever Valentine MD [facility]
--- NOTE | 2019-03-13 09:57 | NEPHROLOGY PROGRESS NOTE ---
DATE: 03/13/2019 SUBJECTIVE: He is lying flat in bed. He denies new problems. He anticipates discharge home today. OBJECTIVE: Vital Signs: Blood pressure 115/66, heart rate 86, respirations 19, afebrile. General: Frail, elderly man lying flat in no distress. Skin: Warm and dry with multiple excoriations and bruising on his left arm. HEENT: Conjunctivae are pink. Pupils are equal. Neck: Neck veins are not appreciated in the flat position. Trachea is midline. Heart: Regular with soft murmur. Lungs: Equal. No crackles or wheezes. Abdomen: Soft, nontender. Bowel sounds present. Extremities: With minimal edema. No clubbing or cyanosis. IMPRESSION: Chronic kidney disease 5D. He will have his routine hemodialysis today. Potassium is still pending but is above target. We will use his routine outpatient prescription with 2 potassium bath and 34 bicarbonate. Two liters ultrafiltration if his blood pressure allows. I understand from Dr. Willett's notes that he plans discharge to home with home health care or hospice as long as he can continue dialysis. We will arrange his outpatient dialysis plan. cc: MD Ever Valentine MD
[2019-03-13] MEDS: D50W 250 ML, AMINOSYN 15% 500 ML, LIPOSYN 20% 250 ML IV SCH ×3 (10:30)
[2019-03-13] MEDS: EPOGEN SUBQ SCH (14:58)
[2019-03-13] MEDS: HUMULIN N SUBQ SCH ×2 (16:30→17:30)
[2019-03-13] MEDS: LOVENOX SUBQ SCH (21:50)
[2019-03-13] MEDS: MIRALAX PO SCH (21:51)
[2019-03-13] MEDS: REMERON PO SCH (21:52)
[2019-03-14] MEDS: PREVACID SOLUTAB PO SCH (06:11)
[2019-03-14 07:04] LABS: CREATININE 6.3 mg/dL (0.7-1.2); PHOSPHORUS 5.2 mg/dL (2.7-4.5)
[2019-03-14 07:07] LABS: POTASSIUM 6.4 mmol/L (3.5-5.1)
[2019-03-14] MEDS: BENEFIBER PACKET PO SCH ×2 (09:00→11:17)
[2019-03-14] MEDS: IMDUR PO SCH ×2 (09:00→11:17)
[2019-03-14] MEDS: HUMULIN N SUBQ SCH (09:00)
[2019-03-14] MEDS: VITAMIN B-12 PO SCH ×2 (09:00→11:17)
[2019-03-14] MEDS ORDERED: LOKELMA POWDER PACKET PO SCH (09:00)
[2019-03-14] MEDS: THERA M PLUS PO SCH (09:00)
[2019-03-14] MEDS: ASPIRIN PO SCH ×2 (09:00→11:16)
[2019-03-14] MEDS: PHOSLO PO SCH (09:00)
--- NOTE | 2019-03-14 09:58 | DISCHARGE SUMMARY ---
ADMISSION DATE: 03/03/2019 DISCHARGE DATE: 03/14/2019 FINAL DIAGNOSES: 1. Cellulitis of the right ankle. 2. End stage renal disease, on hemodialysis. 3. 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 4. Ischemic cardiomyopathy with severe 3-vessel coronary artery disease. 5. Recent right hip fracture. 6. Hyperkalemia. HISTORY OF PRESENT ILLNESS: Mr. Sage is an 88-year-old renal disease due to hypertension and diabetes. One month prior to admission, he fell and broke his right hip and required surgical repair. He was at rehab at [facility] and on the day of admission saw his orthopedic surgeon for followup. The surgeon felt his hip was slowly improving but was worried about his right ankle which was ecchymotic and very red and tender. Physical examination revealed a chronically ill-appearing elderly gentleman who was oriented and responsive. He had moderate jugular venous distention lying supine. Lungs were clear. Cardiac exam was regular rate and rhythm. Distant S1 and S2. No murmurs. Pacemaker is palpable in the right subclavian area. Extremities showed the right ankle was markedly erythematous with some increased warmth and several purple ecchymotic areas on the medial and lateral malleoli. His pedal pulses were quite faint, but no edema was noted. DATABASE: White blood count was 9700. Potassium was 6.3, BUN was 67, creatinine 5.8. HOSPITAL COURSE: He was admitted to the Medical Floor and treated with intravenous vancomycin and ceftazidime for his cellulitis. He was seen in consultation by Dr. Rice, his director decision support, and hemodialysis was resumed. Despite was seemed to be fairly adequate hemodialysis, his potassium never became completely normal but dropped to 5.7 at times. The dialysis fistula in his left upper arm appeared to be somewhat kinked, although adequate flow was documented by Doppler ultrasound. He received antibiotics following each dialysis treatment. His mental status was noted to be somewhat depressed, and his antidepressants were resumed. He did seem to improve while he was here. We had multiple family conferences to discuss his future care. He did request to continue being a full resuscitation code and also to continue hemodialysis. His has significant memory issues and requires constant attendance, and he was very adamant about wanting to go home instead of back to rehab even though his mobility remains significantly impaired because of generalized weakness and his hip fracture. He was able to stand and transfer to a chair with minimal to moderate assistance but will require a lot of assistance at home. He will probably require transportation to dialysis in an ambulance for the time being. We discussed Hospice care, but he hopes to regain mobility and requested regular home health with physical therapy. On the day of discharge, his potassium remained somewhat elevated at 6.4. This is a chronic elevation and seemingly well tolerated. Dr. Rice is aware, and I have ordered some Veltassa daily and discussed with [id number], Rose Mary, the importance of taking this daily. He is discharged in stable condition, but he and his [id number] that is medical situation is quite precarious and could change at any moment. DISCHARGE MEDICATIONS: NPH insulin 6 units subcutaneous q.a.m., Veltassa 8.4 g daily in water, mirtazapine 7.5 mg nightly at bedtime, venlafaxine ER 75 mg q.a.m., vitamin C 1 g daily, calcium acetate 667 mg twice a day, vitamin B12 1000 mcg daily, multivitamin 1 daily, aspirin 81 mg daily, Bicitra 30 mL twice a day, EPO 10,000 units subcutaneously with dialysis when necessary, hydrocortisone 2.5% lotion topically b.i.d. as needed for itching, isosorbide mononitrate 30 mg q.a.m., MiraLAX and Benefiber daily as needed for constipation. FOLLOWUP: To be determined, likely a home visit. cc: Ever Willett MD
[2019-03-14] MEDS: VITAMIN C PO SCH ×2 (11:16→12:11)
[2019-03-14] MEDS: BICITRA PO SCH (11:17)
[2019-03-14] MEDS: EFFEXOR XR PO SCH (11:17)
[2019-03-14 11:31] VITALS: BP 109/45
--- NOTE | 2019-03-14 14:13 | NEPHROLOGY PROGRESS NOTE ---
DATE: 03/14/2019 SUBJECTIVE: He is lying in bed sleeping. No complaints. OBJECTIVE: Vital Signs: Blood pressure 134/54, heart rate 80, respirations 16, afebrile. General: No acute distress. Skin: Warm and dry. Heart: Regular. Lungs: Equal, shallow. Abdomen: Soft, nontender. Bowel sounds present. Extremities: No edema. IMPRESSION: Chronic kidney disease 5 D. He has intermittently low clearance with dialysis and subsequent hyperkalemia and elevated BUN. He may need to simply have a catheter placed. However, given the overall limited plan for intervention, I will discuss this as an outpatient with Dr. Reyes. [facility] his hyperkalemia in the short term. cc: MD Ever Valentine MD
== END 2019-03-14 12:39 | disposition home health service (06) | DRG 602 ==
LOC: SUPCPDRO → ED 14:52 → 4N 14:53
PROVIDERS: ADMIT Internal Medicine; ATTEND Internal Medicine
CPT/HCPCS: 71020; 71046; 73610; 80053; 80069; 82550; 82948; 83605; 83970; 84484; 84520; 85025; 86140; 87040; 93005; 93010; 93923; 93990; 94640; 94761; 96365; 96366; 96375; 97110; 97162; 97530; 99285; A9270; J0610; J0696; J0713; J0885; J1650; J3370; J7030; P9047; XXXXX

== ENCOUNTER 2019-03-16 16:26 | Inpatient (IN) ==
[2019-03-16 17:19] LABS: BASO# 0.03 X1000 (0.0-0.2); BASO% 0.2 % (0.0-0.8); EOS# 0.04 X1000 (0.0-0.7); EOS% 0.3 % (0.0-10.0); HEMATOCRIT 39.9 % (42.0-52.0); HEMOGLOBIN 12.3 g/dL (14.0-18.0); IMM GRAN# 0.04 X1000 (0.0-0.04); IMM GRAN% 0.3 % (0.0-0.5); LYMPH% 7.1 % (20.5-51.1); MCH 31.1 PG (27-31); MCHC 30.8 g/dL (33-37); MONO# 1.13 X1000 (0.11-0.59); MPV 11.8 FL (7.4-10.4); NEUT# 11.91 X1000 (1.4-6.5); NEUT% 84.1 % (42.2-75.2); PLT 261 X1000 (130-400); RBC 3.95 XMIL (4.7-6.1); RDW 22.3 % (11.5-14.5); WBC 14.15 X1000 (4.8-10.8)
[2019-03-16 17:47] LABS: ALBUMIN 3.4 g/dL (3.5-5.0); CALCIUM 8.7 mg/dL (8.8-10.2); CREATININE 8.3 mg/dL (0.7-1.2); TOTAL BILIRUBIN 0.5 mg/dL (0.20-1.00); TOTAL PROTEIN 6.6 g/dL (6.3-8.3)
[2019-03-16] MEDS ORDERED: CALCIUM CHLORIDE 1 GM in NS 100 ML IV ONE (17:48)
[2019-03-16] MEDS ORDERED: ROCEPHIN IV ONE (17:52)
[2019-03-16] MEDS ORDERED: HUMULIN R (PARKWAY) IV ONE ×2 (17:58→21:00)
[2019-03-16] MEDS ORDERED: ALBUTEROL 0.5% INH CONC FOR HYPERKALEMIA INH ONE ×2 (17:58→21:00)
[2019-03-16 17:59] LABS: POTASSIUM 8.1 mmol/L (3.5-5.1)
[2019-03-16] MEDS ORDERED: D50W SYRINGE IV ONE ×2 (18:00→21:00)
[2019-03-16] MEDS ORDERED: ZOFRAN IV ONE (18:01)
--- NOTE | 2019-03-16 18:29 | EKG Report ---
Test Performed on : 03/16/2019 6:10:42 PM Test Reason : hypokalemia Blood Pressure : / mmHG Vent. Rate : 060 BPM Atrial Rate : 055 BPM P-R Int : 172 ms QRS Dur : 224 ms QT Int : 712 ms P-R-T Axes : 000 060 090 degrees QTc Int : 712 ms Atrial-paced rhythm Indeterminate axis Nonspecific intraventricular block Cannot rule out Anterior infarct , age undetermined Abnormal ECG When compared with ECG of 03-MAR-2019 19:14, Electronic atrial pacemaker has replaced Electronic ventricular pacemaker Confirmed by Matthew العراقي, Misael ([id number]), photography editor Kalyan Colunga ([id number]) on 03/20/2019 1:55:26 PM
[2019-03-16] MEDS ORDERED: ROCEPHIN 1 GM in NS 50 ML IV ONE (18:54)
--- NOTE | 2019-03-16 19:11 | Diag Imaging Result Doc PS360 ---
EXAM: CT HEAD W/O CONTRAST 03/16/2019 HISTORY: altered mental status TECHNIQUE: This exam was performed using automated exposure control, adjustment of mA or kV according to patient size, and/or use of iterative reconstruction technique. COMMENT: There are calcifications in the vertebral and internal carotid arteries. There is periventricular white matter lucency bilaterally. Compared to the previous study of 01/26/2019 there has been no significant change in the appearance the brain. There is no evidence of bleed or abnormal extra-axial fluid collection. The paranasal sinuses are clear. The calvarium is intact. IMPRESSION: Chronic ischemic microvascular changes. No evidence of acute disease. Electronically signed by Uday Garnica 03/16/2019 7:09 PM
--- NOTE | 2019-03-16 19:17 | ED EKG INTERP ---
This chart was entered by Pema Almonte Scribe, acting as scribe for Christine Arredondo MD. EKG Interpretation - EKG Time of EKG reading by physician:: 18:10 EKG Read and Signed by:: Christine Arredondo EKG Interpretation (*Must complete 3 of following elements*): Abnormal Rate: 60 Rhythm: Atrial-paced [place]: normal (indeterminate) QRS: other (nonspecific intraventricular block; cannot rule out anterior infarct) HI Interval: normal ST Wave: normal Attestation - Physician/ DELLA Attestation Patient care was provided by Advanced Practice Provider:: No The physician spent face to face time with patient:: Yes Advanced Practice Provider documentation review:: Supervising physician onsite and consulted in the evaluation and care of this patient. The physician did have a face to face encounter with the patient. This chart was documented by the indicated scribe, (Pema Almonte Scribe) and accurately reflects the services I performed and decisions made by me, Christine Arredondo MD, as attested by the provider's signature.
--- NOTE | 2019-03-16 19:17 | PROVIDER DOCUMENTATION ---
This chart was entered by Shelly Renner Scribe, acting as scribe for Christine Arredondo MD. HPI-General Adult - General Chief Complaint: Abnormal Lab[s] Stated Complaint: abd labs Time Seen by Provider: 03/16/19 16:55 Source: EMS Allergies/Adverse Reactions: Patient Allergies Allergy/AdvReac Type Severity Reaction Status Date / Time No Known Allergies Allergy Verified 02/24/19 10:00 Home Medications: Home Medication List Medication Instructions Recorded Confirmed Last Taken Type Venlafaxine E.r. [Effexor Xr] 37.5 mg PO QAM capsule 11/08/17 01/30/19 09/16/18 05:45 Rx Ascorbic Acid [Vitamin C] 1 tab PO QAM 01/26/19 02/08/19 Unknown History Calcium Acetate [Phoslo] 667 mg PO BID 01/26/19 02/08/19 Unknown History Cyanocobalamin (Vitamin B-12) 1,000 mcg PO DAILY 01/26/19 01/30/19 Unknown History [B-12] Multivitamin [Multivitamins] 1 ea PO QAM 01/26/19 02/08/19 Unknown History Aspirin 81 mg PO DAILY chewtab 02/11/19 Unknown Rx Guar Gum [Benefiber Packet] 1 ea PO DAILY packet 02/11/19 Unknown Rx Insulin Human NPH [Humulin N] 12 unit SUBQ QAM vial 02/11/19 Unknown Rx Oxycodone I.r. [Oxy Ir] 5 mg PO Q3H PRN PRN #30 tab 02/11/19 Unknown Rx Venlafaxine E.r. [Effexor Xr] 37.5 mg PO QAM cap 02/11/19 Unknown Rx Acetaminophen [Tylenol] 500 mg PO TID PRN #0 tab 03/14/19 Unknown Rx Citric Acid/Sodium Citrate 30 ml PO BID #32 oz 03/14/19 Unknown Rx [Bicitra] Epoetin Aldair [Epogen] 10,000 unit SUBQ MoWeFr@0900 #0 03/14/19 Unknown Rx vial Hydrocortisone 2.5% Lotion 5 ml TOP BID #1 bottle 03/14/19 Unknown Rx Insulin Human NPH [Humulin N] 6 unit SUBQ QAM #1 vial 03/14/19 Unknown Rx Isosorbide Mononitrate E.r. [Imdur] 30 mg PO DAILY #30 tab 03/14/19 Unknown Rx Mirtazapine [Remeron] 7.5 mg PO QHS #30 tab 03/14/19 Unknown Rx Patiromer [Veltassa] 8.4 gm PO DAILY #30 pkt 03/14/19 Unknown Rx Polyethylene Glycol 3350 [Miralax] 17 gm PO HS #0 powder, packet 03/14/19 Unknown Rx Venlafaxine E.r. [Effexor Xr] 75 mg PO QAM #30 cap 03/14/19 Unknown Rx - History of Present Illness -Gen Adult Nature of Presenting Problems: 88 yom presents to ED by EMS cc a high potassium level after dialysis today. Pt is unable to interact with doctor. Pt has hx of DM, CHF, HTN and kidney disease. Review of Systems - Adult - REVIEW OF SYSTEMS - ADULT ROS:: unobtainable per condition Constitutional: reports: no symptoms reported Eyes: reports: no symptoms reported Ears, Nose, Mouth & Throat: reports: no symptoms reported Cardiovascular: reports: no symptoms reported Respiratory: reports: no symptoms reported Gastrointestinal: reports: no symptoms reported Genitourinary: reports: no symptoms reported Musculoskeletal: reports: no symptoms reported Integumentary: reports: no symptoms reported Neurological: reports: no symptoms reported Psychiatric: reports: no symptoms reported Endocrine: reports: no symptoms reported Hematologic/Lymphatic: reports: no symptoms reported Allergic/Immunologic: reports: no symptoms reported All Other Systems: Reviewed and Negative Past History - Adult - PAST MEDICAL HISTORY-ADULT Review of Records: reports: Nursing Assessment Review, Medications Reviewed, Social history reviewed & non-contributory. Major Childhood Illnesses: reports: denies history Cardiovascular: reports: CHF, HTN Respiratory: reports: denies history Gastrointestinal: reports: denies history Obstetrical/Gynecological: reports: denies history Genitourinary: reports: kidney disease Musculoskeletal: reports: denies history Neurological: reports: denies history Psychiatric: reports: depression Endocrine/Immune: reports: Diabetes Other Conditions: reports: denies history - PRIOR SURGERIES/PROCEDURES Surgical/Procedure History: reports: orthopedic (extremity), joint replacement - IMMUNIZATION STATUS Childhood Immunizations: See Nurse Assessment Flu Vaccine: See Nurse Assessment - FAMILY HISTORY Family History: reviewed, not pertinent - SOCIAL HISTORY Smoking: denies Physical Exam-General - PHYSICAL EXAM-ADULT Initial Vital Signs Reviewed: Yes - CONSTITUTIONAL General Appearance: lethargic Progress - PLAN OF CARE/RESULTS Progress/Plan/Lab Results: Vital Signs - 8 hr 03/16/19 16:30 Pulse Rate 60 Respiratory Rate 19 Blood Pressure 152/97 O2 Sat by Pulse Oximetry 98 Orders Category Date Time Status CBC WITH DIFF [HEME] Stat Lab 03/16/19 16:18 Ordered COMPREHENSIVE METABOLIC PANEL [CHEM] Stat Lab 03/16/19 16:49 Ordered Result Diagrams: 03/16/19 16:50 03/16/19 16:40 - CONSULTS/PCP/HOSPITALIST Notification #1 *Consult/PCP/Hospitalist*: Bailee Time Discussed: 18:05 Consult Disposition: other (wanted patient to [facility], recommened treatment) #2 Consult: Dr Sanabria Time Discussed: 18:30 Reason/Comments: Stated there was not ICU bed, but floor was open #3 Consult: Dr Sanabria said let he calls Dr Morocho then call me back Time Discussed: 18:50 Consult Disposition: other (Dr Sanabria stated that he talked with Dr Morocho who said patient had conversation with him that he was no code and Dr Sanabria accepted him to the floor in [place]) Departure - Departure Date of Disposition Decision: 03/16/19 Time of Disposition Decision: 18:11 DIAGNOSIS: Hyperkalemia, Uremic encephalopathy Disposition: ADMITTED INPATIENT 09 Certified Medical Emergency: Emergent Condition: Critical Referrals and Follow-Ups: Ever Willett MD [Primary Care Provider] - - Critical Care Note This patient required my direct & personal management of CC.: Yes Total Time (mins): 41 Critical Care Statement: This patient required my direct personal management to treat or rule out processes, the absence of which, could potentiallly result in sudden, clinically significant life or limb threatening deterioration. Attestation - Physician/ DELLA Attestation Patient care was provided by Advanced Practice Provider:: No The physician spent face to face time with patient:: Yes Advanced Practice Provider documentation review:: Supervising physician onsite and consulted in the evaluation and care of this patient. The physician did have a face to face encounter with the patient. This chart was documented by the indicated scribe, (Shelly Renner Scribe) and accurately reflects the services I performed and decisions made by me, Christine Arredondo, MD, as attested by the provider's signature.
[2019-03-16] MEDS ORDERED: VANCOMYCIN 1 GM/NS 1 GM/250 ML IVPB IV ONE (21:14)
[2019-03-16] MEDS ORDERED: SALINE LOCK IV FLUID XX ONE (21:17)
[2019-03-16] MEDS: LOKELMA POWDER PACKET PO SCH ×2 (21:26→23:34)
[2019-03-16] MEDS: HUMALOG SUBQ SCH (23:48)
[2019-03-16] MEDS: LEVAQUIN 250 MG/D5W 250 MG/50 ML IVPB IV SCH (23:49)
[2019-03-17 00:50] LABS: AGAP 30; ALBUMIN 3.4 g/dL (3.5-5.0); BUN 104 mg/dL (8-22); CALCIUM 9.4 mg/dL (8.8-10.2); CHLORIDE 86 mmol/L (98-107); COSMO 299; CREATININE 8.4 mg/dL (0.7-1.2); GLUCOSE 124 mg/dL (70-104); PHOSPHORUS 7.3 mg/dL (2.7-4.5); SODIUM 132 mmol/L (136-145); TCO2 16 mmol/L (25-35)
[2019-03-17 00:52] LABS: POTASSIUM 7.5 mmol/L (3.5-5.1)
[2019-03-17 00:59] LABS: URINE SOURCE CATH
[2019-03-17 01:14] LABS: BILIRUBIN URINE NEGATIVE (NEGATIVE); BLOOD URINE LARGE (NEGATIVE); COLOR YELLOW; GLUCOSE URINE 70 mg/dL (NEGATIVE); KETONE URINE NEGATIVE (NEGATIVE); LEUKOCYTES URINE LARGE (NEGATIVE); NITRITE URINE NEGATIVE (NEGATIVE); PROTEIN URINE 200 mg/dL (NEGATIVE); SP GRAVITY URINE 1.013; TURBIDITY URINE TURBID (CLEAR); UROBILINOGEN URINE NORMAL (NORMAL)
[2019-03-17 01:15] LABS: UR EPITHELIAL CELLS <10 /HPF (<10); URINE BACTERIA NEGATIVE /HPF; URINE RBC TNTC /HPF (<10); URINE WBC TNTC /HPF (<10)
[2019-03-17 01:22] LABS: URINE CASTS NONE SEEN; URINE CRYSTALS NONE SEEN; URINE SMALL ROUND CELLS NONE SEEN; URINE YEAST NONE SEEN
[2019-03-17] MEDS: LOKELMA POWDER PACKET PO SCH ×2 (01:50→04:17)
[2019-03-17] MEDS ORDERED: HEPARIN IV PRN (06:06)
[2019-03-17] MEDS ORDERED: TIGHT: 0.2 ML/HR FOR DIALYSIS MISC PRN (06:06)
[2019-03-17] MEDS ORDERED: NS 2,000 ML MISC PRN (06:06)
--- NOTE | 2019-03-17 06:31 | Diag Imaging Result Doc PS360 ---
CHEST-PORTABLE - 03/17/2019 INDICATION: dyspnea COMPARISON: 03/03/2019 FINDINGS: Stable pacemaker. Lung volumes are critically low, even more so than prior. There is increasing bibasilar atelectasis. Heart size remains stable. IMPRESSION: Critically low lung volumes. Electronically signed by Sae Yoon 03/17/2019 6:29 AM
[2019-03-17] MEDS ORDERED: HUMALOG SUBQ SCH (07:00)
[2019-03-17 07:28] LABS: CALCIUM 9.2 mg/dL (8.8-10.2); CREATININE 8.5 mg/dL (0.7-1.2); PHOSPHORUS 6.8 mg/dL (2.7-4.5)
[2019-03-17 07:42] LABS: POTASSIUM 7.3 mmol/L (3.5-5.1)
--- NOTE | 2019-03-17 08:31 | GENERAL SURGERY CONSULTATION ---
DATE: 03/17/2019 HISTORY OF PRESENT ILLNESS: Mr. Sage was recently in the hospital secondary to cellulitis of his ankle. Apparently after discharge, he clotted his left upper arm access and was unable to be dialyzed yesterday. He is now admitted today with somnolence and hyperkalemia. His other medical problems include type 2 diabetes, ischemic cardiomyopathy with severe 3 vessel coronary disease, and recent right hip fracture. MEDICATIONS: Currently include Humulin insulin and Levaquin. ALLERGIES: He has no known drug allergies. SOCIAL HISTORY: He is and lives with his . He has no cigarette smoking or alcohol use currently. FAMILY HISTORY: Pertinent for hypertension and diabetes. REVIEW OF SYSTEMS: As noted above. EXAM: Vital Signs: On exam, he is afebrile. Heart rate 87. Blood pressure 111/53. He is somewhat somnolent, but does arouse to questioning. He has a diffuse rash over his chest. The fistula is in the upper arm on the left and there was no flow present. He has an IV on the left side of his neck. Lungs: Bilateral breath sounds. Heart: Regular rate and rhythm. LABS: Potassium is 7.3, BUN 106, creatinine 8.5. ASSESSMENT: Clotted access. PLAN: The plan will be to place a tunneled catheter at Dr. Rice's request. We will plan to proceed today as I did discuss this with his family and Mr. Sage. cc: MD Ever Constantino MD
--- NOTE | 2019-03-17 09:15 | NEPHROLOGY CONSULTATION ---
DATE: 03/16/2019 CONSULTING PHYSICIAN: Smith Steinberg DO REASON FOR ADMISSION: Abnormal laboratories with hyperkalemia. REASON FOR CONSULT: Chronic kidney disease stage 5D with hyperkalemia. HISTORY OF PRESENT ILLNESS: Mr. Sage is an 88-year-old white male who has unfortunately been in the hospital several times since 2019. His last admission being on 03/03/2019 with cellulitis to his right ankle. He was recently just discharged last week. The patient presented for outpatient hemodialysis. They were unable to cannulate his left upper arm. This fistula has been poor cannulation for the last month or so. The patient has had routinely elevated potassium levels with his most recent potassium ranging at 7.5. He presented to the emergency room. He was treated conservatively with D50 insulin and calcium gluconate x2. Labs repeated this a.m. show a potassium of 7.3. The patient in the emergency room was lethargic, unable to communicate with hospital staff. His grandson is currently residing at his bedside and he is a little bit more awake and alert, though he drifts off to sleep during questioning. He does deny chest pain. No increased work of breathing. Denies any nausea, vomiting. He has bruising noted to his left upper arm where his fistula is located secondary to frequent cannulations. PAST MEDICAL HISTORY: End-stage renal disease with hemodialysis on Saturday, Saturday, Saturday at the [facility], long-standing diabetes mellitus type 2, hypertension, systolic and diastolic heart failure, myocardial infarction, coronary artery disease, anemia of chronic disease, esophageal reflux, osteoarthritis, history of pseudogout to previous left shoulder. He has osteodystrophy of chronic disease, previous cellulitis to his right ankle and chronic hyperkalemia. SOCIAL HISTORY: He is . He is currently living with his spouse. He requires ambulance transport back and forth to dialysis treatments. He does have around the clock sitters. He has a [id number] and a grandson who are attentive to his care. He is a former cigarette smoker. Denies alcohol or illicit drug use. FAMILY HISTORY: Noncontributory. ALLERGIES: No known drug allergies. HOME MEDICATIONS: Vitamin C, PhosLo, vitamin B12, multivitamin, enteric-coated low-dose aspirin, Benefiber packets, Humulin N, NPH, Remeron, Epogen, Imdur, sorbitol, MiraLAX, venlafaxine, Veltassa. The patient has also been on Levaquin p.o. for cellulitis. REVIEW OF SYSTEMS: Review of systems x10 with pertinent positives listed above in the history of present illness. PHYSICAL EXAMINATION: Vitals: The patient's most recent vital signs temperature 97.4 degrees, blood pressure 151/127, though the previous blood pressure before that was 64/25. No repeat noted. Heart rate of 98. Respirations 17. He is on room air. Last recorded saturation 93%. General: This is an 88-year-old male resting quietly in bed. He appears in no acute distress. He is lethargic. HEENT: Normocephalic, atraumatic. Conjunctiva pale. He has MELODY. Mucous membranes are dry. Neck: Supple. Trachea midline. He has positive JVD with some facial swelling. Cardiovascular: Regular rate and rhythm. No murmur or gallop appreciated. Palpable pacemaker to the left chest wall. Lungs: Clear to auscultation bilaterally, equal excursion on room air. Abdomen: Soft, nontender, positive bowel sounds. Genitourinary: Not inspected. Minimal void with dialysis assist. Extremities: No edema, no clubbing or cyanosis. Fistula to the left upper arm with ecchymosis and stages of bruising. Right ankle remains slightly erythematous. Decreased pulses bilateral. Warm to touch. Neurological: As mentioned above. INPUT AND OUTPUT: He has had 0 recorded in or out. LABORATORY DATA: Sodium 132, potassium 7.3, chloride 98, CO2 16, BUN 106, creatinine 8.5, glucose 79. His anion gap is 28, calcium 9.2, phosphorus 6.8, albumin of 3. Previous hemoglobin of 12.3. The patient has a positive urinalysis for turbid urine, positive proteinuria, large blood, large leukocytes, too numerous to count WBCs and RBCs. ASSESSMENT AND PLAN: 1. Chronic kidney disease stage 5D. Patient missed his dialysis treatment yesterday secondary to not being able to cannulate. We have requested Dr. Yobani Reyes to evaluate this left upper arm fistula and for placement of a dialysis tunneled catheter. The patient is in agreement. His grandson is aware of the decision and is also in agreement to proceed. Patient is nothing per oral. 2. Electrolytes and acid-base balance. The patient continues with hyperkalemia with a potassium of 7.3. We will attempt at dialysis to decrease his potassium level to be able to go to surgery this a.m. 3. Anemia, this is within target. 4. Urinary tract infection. Patient is currently on Levaquin. Reflux cultures are still pending. 5. Cellulitis to his right ankle. Patient had been on Levaquin on an outpatient basis. I would like to thank you for allowing us to follow with this patient. Dictated by LEYDA Vo for Curtis Rice MD Face to face encounter, data reviewed, discussed with Clovis Wei on 03/17/19. I agree with the above assessment and plan of care. cc: LEYDA Vo MD [facility] T. Barr, [facility]
[2019-03-17] MEDS ORDERED: HEPARIN ONE ×2 (10:32)
[2019-03-17] MEDS ORDERED: NS 250 ML ONE ×2 (10:32→10:37)
[2019-03-17] MEDS ORDERED: DIPRIVAN 1% ONE (10:58)
[2019-03-17] MEDS ORDERED: SENSORCAINE-MPF 0.5%/EPI 1:200,000 ONE (10:58)
[2019-03-17] MEDS ORDERED: XYLOCAINE-MPF 2% ONE (10:58)
--- NOTE | 2019-03-17 11:30 | OPERATIVE NOTE ---
PROCEDURE DATE: 03/17/2019 PROCEDURE: Placement of right internal jugular vein tunneled catheter with ultrasound and fluoroscopic guidance. SURGEON: Yobani Reyes MD. GAS LINE INSTALLER SUPERVISOR: Tristan. PREOPERATIVE DIAGNOSIS: Chronic kidney disease 5. POSTOPERATIVE DIAGNOSIS: Chronic kidney disease 5. DESCRIPTION OF PROCEDURE: Satisfactory monitoring anesthesia care was established. IV sedation accomplished. The right side of the neck and upper anterior chest were prepped and draped in sterile fashion. We anesthetized the skin in the neck. Ultrasound proved the vein to be patent and compressible. We anesthetized the skin with 0.5 Marcaine with epinephrine. We made a small stab incision. We accessed the internal jugular vein and passed the guidewire into the superior vena cava under fluoroscopic guidance. We anesthetized the skin below the clavicle lateral to the pacemaker. After satisfactory anesthesia, we made a stab incision there. We then anesthetized the subcutaneous tissue between the subclavian incision and the neck incision. We then tunneled a 24 cm pre curved Glidepath catheter from the subclavian incision and the neck incision. We then dilated the tract sequentially with sequential dilators and then passed the dilator and introducer sheath over the guidewire. We removed the dilator and guidewire, then introduced the Glidepath catheter through the sheath into the right atrium. We peeled the sheath away as we introduced the catheter. We were able to aspirate and irrigate easily. We then inserted strong heparin, that is 5000 units/mL, 1.9 mL in one lumen, 1.9 mL in the other lumen. We secured the flange to the skin with 3-0 nylon. We closed the skin of the neck incision with 4-0 Polysorb subcuticular stitch. Steri-Strips, Telfa and sterile OpSite was applied on the neck incision. A Telfa and OpSite was placed at the exit site of the catheter. He tolerated it well, was sent to the recovery room in satisfactory condition. cc: MD Ever Constantino MD Reginald D. Gladish, MD
[2019-03-17] MEDS: HUMALOG SUBQ SCH ×2 (12:48→17:05)
[2019-03-17] MEDS: IMDUR PO SCH (16:38)
--- NOTE | 2019-03-17 17:35 | HISTORY AND PHYSICAL ---
CHIEF COMPLAINT: Hyperkalemia, unable to cannulate dialysis fistula this morning. 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 He was recently discharged from the hospital, and the nurses had difficulty accessing his hemodialysis fistula in his left upper arm. He had previously had some difficulty, and his previous dialysis attempts had limited success in controlling his potassium. They obtained a potassium level of approximately 8.5 and sent him to the emergency room for evaluation and treatment. He was taken by ambulance to the [facility], where no dialysis facilities were available. He was evaluated by their emergency room staff and given treatment for hyperkalemia. Dr. Rice, his mud jack nozzleman, became involved in his care and assisted. He was eventually transferred over here to the main campus for dialysis. This morning the regular hemodialysis staff attempted to access his fistula but again had some kind of problem with a blood leak, and this was avoided. He was seen by Dr. Ciro Reyes, and a tunneled Vas-Cath was placed this morning. He has just returned from a full hemodialysis session and is very weak and lethargic. His most recent potassium was 6.6 prior to the dialysis attempt. No further history is available. His recent admission was for treatment of right ankle cellulitis. His white blood count today is slightly elevated, but his foot looks stable to improved, and I do not think there is an infection there. His urinalysis shows white blood cells, and a culture is pending. He has had doses of ceftriaxone and vancomycin. PAST MEDICAL HISTORY: Longstanding type 2 diabetes mellitus and hypertension which have caused his renal failure. He has been on hemodialysis for nearly 18 months. Initially he responded well and improved, but for the past 4-5 months he has had very poor quality of life and limited ability to ambulate. He has a history of systolic and diastolic congestive heart failure, previous myocardial infarctions, coronary disease, anemia of chronic renal disease, and osteoarthritis. He also has a history of pseudogout, particularly of the right shoulder. FAMILY HISTORY: Positive for hypertension and diabetes. SOCIAL HISTORY: He is . Until his hip fractures approximately a month ago, he lived with his and mkeiu-[id number] sitters. His has fairly significant dementia. ALLERGIES: No known drug allergies. HOME MEDICATIONS: Unchanged from previous discharge medications. REVIEW OF SYSTEMS: Unobtainable. PHYSICAL EXAMINATION: VITAL SIGNS: Temperature 97.6, pulse 65, respirations 18, blood pressure 111/60, O2 saturation 98% on room air. GENERAL: Elderly, [id number], lethargic gentleman lying in bed. Pupils are equal and responsive. Extraocular movements are untested. NECK: Supple and nontender without adenopathy or bruits. CHEST: Clear to auscultation anteriorly. CARDIOVASCULAR: Regular rate and rhythm. No murmurs or gallops. Telemetry shows a paced rhythm. ABDOMEN: Soft, flat and nontender with active bowel sounds. EXTREMITIES: Decreased muscle mass throughout. His incision has healed well. His right ankle remains slightly ecchymotic, but the redness is mostly gone. There is no increased warmth and no tenderness. ASSESSMENT: 1. Chronic end-stage renal disease with hemodialysis access issues. 2. Hyperkalemia, improved. 3. Type 2 diabetes mellitus, on very low-dose insulin to his renal failure. 4. Recent hip fracture with diminished mobility. PLAN: Will repeat chemistry profile in the morning and see how his potassium and other electrolytes stand. Needs to have a discussion about possible hospice care. He can continue hemodialysis with an affirmative diagnosis such as ischemic cardiomyopathy, so hospice does not necessarily mean the end of his hemodialysis. cc: Ever Willett MD MTDD
[2019-03-17] MEDS: BICITRA PO SCH (20:26)
[2019-03-17] MEDS: PHOSLO PO SCH (20:26)
[2019-03-17] MEDS: REMERON PO SCH (20:26)
[2019-03-17] MEDS ORDERED: D50W SYRINGE ONE (21:12)
[2019-03-18] MEDS ORDERED: HEPARIN IV PRN (05:36)
[2019-03-18] MEDS ORDERED: NS 2,000 ML MISC PRN (05:36)
[2019-03-18] MEDS ORDERED: TIGHT: 0.2 ML/HR FOR DIALYSIS MISC PRN (05:36)
[2019-03-18 07:46] LABS: ALBUMIN 3.1 g/dL (3.5-5.0); CALCIUM 8.2 mg/dL (8.8-10.2); CREATININE 4.8 mg/dL (0.7-1.2); PHOSPHORUS 5.5 mg/dL (2.7-4.5); POTASSIUM 5.7 mmol/L (3.5-5.1)
--- NOTE | 2019-03-18 07:58 | NEPHROLOGY PROGRESS NOTE ---
DATE: 03/18/2019 SUBJECTIVE: Mr. Sage is resting quietly in bed. Grandson remains at his bedside. States that he is just not feeling well. OBJECTIVE: Most recent vital signs: Temperature 98.4 degrees, blood pressure 94/38, heart rate 102, respirations are 17. The patient continues on room air. Last recorded saturation is 97%. He has had 250 in. He has had 80 mL out, with plan for dialysis today. General: This is an 88- year-old white male. He is currently resting quietly in bed. He appears chronically ill, in no acute distress. Skin: Warm and dry. HEENT: Normocephalic, atraumatic. Conjunctiva is pale pink. He has MELODY. Mucous membranes are dry. Neck: Supple. Trachea midline. He has no evidence of JVD. Cardiovascular: Regular rate and rhythm. No murmur or gallop appreciated. Pacemaker palpable to the left chest wall. Lungs: Clear to auscultation bilaterally. Equal excursion on room air. Abdomen: Soft, nontender. Positive bowel sounds. Genitourinary: Not inspected. The patient has minimal void with dialysis assist. Extremities: No edema. No clubbing or cyanosis. Fistula to the left upper arm has severe ecchymosis with different stages of bruising and healing. He also has a tunnel catheter to the right chest wall. This is dry and intact. IV to the left IJ. Right ankle remains slightly erythematous. Decreased pulses bilaterally. Warm to touch. Neurological: As mentioned above. LABORATORY DATA: These are currently pending. His previous hemoglobin was 12.3. Previous potassium of 6.6 yesterday, though he did have dialysis with placement of a tunnel dialysis catheter. ASSESSMENT AND PLAN: 1. Chronic kidney disease stage 5D. The patient is due for his routine dialysis treatment today. We will place him on a 2-potassium bath. He is to dialyze for 3.5 hours. We will pull the patient to his outpatient dry weight using his tunnel dialysis catheter today, with possible plans for dialysis again tomorrow. 2. Electrolytes, acid-base balance, and anemia. These are all acceptable. The patient has been hyperkalemic with correction on dialysis. 3. Urinary tract infection. The patient remains on Levaquin. I would like to thank you for allowing us to follow with this patient. Dictated by LEYDA Vo for Curtis Rice MD Face to face encounter, data reviewed, discussed with Clovis Wei on 03/18/19. I agree with the above assessment and plan of care. cc: LEYDA Vo MD Russell T. Barr, MD [facility]
[2019-03-18] MEDS ORDERED: HUMULIN N SUBQ SCH ×2 (09:00)
[2019-03-18] MEDS ORDERED: VELTASSA PO SCH (09:00)
[2019-03-18] MEDS: BICITRA PO SCH ×2 (09:53→22:14)
[2019-03-18] MEDS: PHOSLO PO SCH ×2 (09:54→22:14)
[2019-03-18] MEDS: MIRALAX PO SCH (09:54)
[2019-03-18] MEDS: CENTRUM SILVER PO SCH (09:54)
[2019-03-18] MEDS: IMDUR PO SCH (09:54)
[2019-03-18] MEDS: EFFEXOR XR PO SCH (09:54)
[2019-03-18] MEDS: HUMULIN N SUBQ SCH (09:57)
[2019-03-18] MEDS: LEVAQUIN 250 MG/D5W 250 MG/50 ML IVPB IV SCH (22:13)
[2019-03-18] MEDS: REMERON PO SCH (22:14)
[2019-03-19] MEDS ORDERED: NS 2,000 ML MISC PRN (05:57)
[2019-03-19] MEDS ORDERED: HEPARIN IV PRN (05:57)
[2019-03-19] MEDS ORDERED: TIGHT: 0.2 ML/HR FOR DIALYSIS MISC PRN (05:57)
[2019-03-19 08:11] LABS: CALCIUM 8.5 mg/dL (8.8-10.2); CREATININE 3.3 mg/dL (0.7-1.2); POTASSIUM 4.4 mmol/L (3.5-5.1)
[2019-03-19] MEDS: EFFEXOR XR PO SCH (09:51)
[2019-03-19] MEDS: BICITRA PO SCH ×2 (09:51→20:14)
[2019-03-19] MEDS: PHOSLO PO SCH ×2 (09:51→20:14)
[2019-03-19] MEDS: CENTRUM SILVER PO SCH (09:51)
[2019-03-19] MEDS: IMDUR PO SCH (09:51)
[2019-03-19] MEDS: HUMULIN N SUBQ SCH (09:55)
[2019-03-19] MEDS ORDERED: CALMOSEPTINE OINTMENT TOP PRN (13:31)
--- NOTE | 2019-03-19 14:03 | NEPHROLOGY PROGRESS NOTE ---
DATE: 03/19/2019 DATE AND TIME SEEN: 03/19/2019 at 0630. SUBJECTIVE: Mr. Sage is resting quietly in bed. His [id number] is at the bedside along with his grandson. He states that he is feeling slightly better today. OBJECTIVE: His most recent vital signs, temperature 98.7 degrees, blood pressure 94/41, heart rate 87, respirations 17. He is on room air. Last recorded saturation 100%. He has had 650 in, he has had 0 recorded out. LABORATORY DATA: Sodium 133, potassium 4.4, chloride 97, CO2 24, BUN 23, creatinine 3.3, glucose 87. His anion gap is 12, calcium 8.5, phosphorus 4, albumin is 3. Previous hemoglobin 12.3. PHYSICAL EXAMINATION: General: This is an 88-year-old white male resting quietly in bed. He is in no acute distress. Skin: Warm and dry. HEENT: Normocephalic, atraumatic. Conjunctiva is pale pink. He has MELODY. Mucous membranes are dry. Neck: Supple. Trachea midline. No evidence of JVD. Cardiovascular: Regular rate and rhythm. No murmur or gallop appreciated. Lungs: Clear to auscultation bilaterally. Equal excursion on room air. Abdomen: Soft, nontender. Positive bowel sounds. Genitourinary: Not inspected. Minimal void with dialysis assist. Extremities: Have 1+ lower extremity edema. No clubbing or cyanosis. Right ankle remains slightly erythematous. Neurological: As mentioned above. ASSESSMENT AND PLAN: 1. Chronic kidney disease stage 5D. The patient's routine dialysis treatment is on Saturday, Saturday, Saturday. We will hold dialysis today secondary to him dialyzing 2 days straight this week. We will plan for dialysis in the a.m. unless potassium indicated. 2. Electrolytes, acid-base balance, and anemia. Patient has had mild hyperkalemia with correction on dialysis. 3. Urinary tract infection. The patient is awaiting culture and sensitivity, to be followed by the primary care. He is much better today. He has been underdialyzed for several weeks I think. rg I would like to thank you for allowing us to follow with this patient. Dictated by LEYDA Vo for Curtis Rice MD Face to face encounter, data reviewed, discussed with Clovis Wei on 03/19/19. I agree with the above assessment and plan of care. cc: LEYDA Vo MD Russell T. Barr, MD MTDD
--- NOTE | 2019-03-19 16:21 | EKG Report ---
Test Performed on : 03/19/2019 02:16:34 AM Test Reason : tele said possible vtach Blood Pressure : / mmHG Vent. Rate : 090 BPM Atrial Rate : 090 BPM P-R Int : 198 ms QRS Dur : 180 ms QT Int : 452 ms P-R-T Axes : 057 -70 102 degrees QTc Int : 552 ms Normal sinus rhythm. Left axis deviation Left bundle branch block Abnormal ECG When compared with ECG of 16-MAR-2019 18:10, (Unconfirmed) Sinus rhythm. has replaced Electronic atrial pacemaker Vent. rate has increased BY 30 BPM Left bundle branch block has replaced Nonspecific intraventricular block Minimal criteria for Anterior infarct are no longer present Confirmed by John العراقي, Donis Miller ([id number]) on 03/22/2019 4:37:20 PM
[2019-03-19] MEDS: MIRALAX PO SCH (20:14)
[2019-03-19] MEDS: REMERON PO SCH (20:14)
[2019-03-20] MEDS ORDERED: GAVISCON PO ONE (07:04)
[2019-03-20] MEDS ORDERED: GAVISCON PO PRN (07:06)
[2019-03-20] MEDS ORDERED: TUMS PO PRN (08:11)
[2019-03-20] MEDS ORDERED: NS 2,000 ML MISC PRN (09:15)
[2019-03-20 10:45] LABS: ALBUMIN 3.1 g/dL (3.5-5.0); CALCIUM 8.3 mg/dL (8.8-10.2); CREATININE 3.3 mg/dL (0.7-1.2); PHOSPHORUS 3.5 mg/dL (2.7-4.5)
[2019-03-20] MEDS ORDERED: REGLAN IV ONE (11:08)
--- NOTE | 2019-03-20 11:23 | DISCHARGE SUMMARY ---
ADMISSION DATE: 03/16/2019 DISCHARGE DATE: 03/20/2019 FINAL DIAGNOSIS: 1. Hyperkalemia. 2. End-stage renal disease with recent ineffective hemodialysis. 3. Nonfunctional hemodialysis fistula. 4. Uremic encephalopathy. 5. 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 6. Recent right hip fracture. 7. History of hypertension. PRESENT ILLNESS: Mr. Sage is an 88-year-old gentleman, who presented Saturday morning for his routine hemodialysis session at [facility]. He had a history of somewhat troublesome dialysis fistula and attempts to cannulate it were unsuccessful. The dialysis staff checked his potassium and found it quite elevated at 8.5. He was urgently referred to the [facility] Emergency Room. After medical stabilization, he was transferred to [facility]. PHYSICAL EXAMINATION: General: Revealed an elderly chronically ill-appearing lethargic gentleman lying in bed. Lungs were clear. Cardiac exam: Regular rate and rhythm with pacemaker complexes on telemetry. Extremities: There is decreased muscle mass diffusely. His right hip incision appears healed. HOSPITAL COURSE: Saturday, hemodialysis was attempted but the staff here were unable to successfully cannulate his fistula either. Dr. Rice and Dr. Yobani Reyes evaluated him and he placed a tunneled vascular catheter in the right subclavian area and he underwent successful hemodialysis daily Saturday, Saturday, , and today. His alertness and mental status improved significantly with hemodialysis and he clearly had some degree of uremic encephalopathy on admission. His potassium also returned to normal. His appetite remained fair at best and his insulin requirements seemed lower than in the past and his morning dose of NPH was reduced to 6 units subcutaneously daily. Again, we had a conversation with him and his [id number], Rose Mary Sage, and he expressed a wish to continue hemodialysis and to try once more some rehab at [facility] in the hopes that he could return home and assist in the care of his . His prognosis remains extremely limited, primarily because of his chronic ischemic cardiomyopathy and previous cardiopulmonary arrest. He was seen by the Palliative Care nurse and seems to understand the goals of Palliative Care and potentially hospice care when this becomes necessary. He is discharged in improve condition to [facility]. His rehab potential is fair but his mind is good and I strongly believe he deserves 1 more chance at rehab. DISCHARGE MEDICATIONS: Calmoseptine ointment as needed for moisture barrier, calcium carbonate 500 mg 3 times a day after meals as needed for heartburn, PhosLo 667 mg twice a day for phosphate binder, vitamin B12 1000 mcg orally daily, multivitamin 1 daily, aspirin 81 mg daily, MiraLAX plus Benefiber mixed together in 1 glass and drink daily for constipation, NPH insulin 6 units subcutaneously every morning with breakfast, erythropoietin 10,000 units subcutaneously Saturday, Saturday, Saturday to be given by dialysis staff, mirtazapine 7.5 mg at bedtime for appetite, venlafaxine 75 mg extended release 1 daily after breakfast, isosorbide mononitrate extended release 30 mg q.a.m., Bicitra 30 mL q.a.m. cc: Ever Willett MD
--- NOTE | 2019-03-20 13:58 | NEPHROLOGY PROGRESS NOTE ---
DATE: 03/20/2019 SUBJECTIVE: He has nausea this morning and is asking for some Rolaids. Did vomit overnight. No shortness of breath. OBJECTIVE: Vital Signs: Blood pressure 94/62, heart rate 94, respiration 18, afebrile. General: No acute distress. Skin: Warm and dry. HEENT: Conjunctivae are pink. Neck: Neck veins are not distended. Heart: Regular. No gallops. Lungs: Lungs are equal. No crackles or wheezes. Abdomen: Soft, nontender. Bowel sounds present. Extremities: Have 1+ edema. No clubbing or cyanosis. IMPRESSION: Nausea. He has symptomatic treatment available. Add Gaviscon. Will dialyze tomorrow. Okay for discharge from my perspective. cc: MD Ever Valentine MD
[2019-03-20] MEDS: BICITRA PO SCH (14:01)
[2019-03-20] MEDS: CENTRUM SILVER PO SCH (14:01)
[2019-03-20] MEDS: PHOSLO PO SCH (14:01)
[2019-03-20] MEDS: IMDUR PO SCH (14:01)
[2019-03-20] MEDS: EFFEXOR XR PO SCH (14:01)
[2019-03-20] MEDS: HUMULIN N SUBQ SCH (14:03)
[2019-03-20] MEDS: MIRALAX PO SCH (14:04)
[2019-03-20 15:58] VITALS: BP 72/35
== END 2019-03-20 18:11 | DRG 314 ==
LOC: P.ED 16:26 → 3N 20:11
PROVIDERS: ADMIT Internal Medicine; ATTEND Internal Medicine
CPT/HCPCS: 70450; 71010; 71045; 77001; 80053; 80069; 81001; 82140; 82948; 84132; 84134; 85025; 87040; 87088; 93005; 93010; 94640; 96365; 96367; 96375; 97162; 97530; 99285; 99291; A9270; C1750; J0696; J1644; J1815; J1956; J2405; J2765; J3370; J7030; J7050; XXXXX

== ENCOUNTER 2019-04-21 12:32 | Inpatient (IN) ==
[2019-04-21 12:51] LABS: ALLEN TEST NO; BE 1.9 mmoll (-3.0-3.0); BLOOD TYPE ARTERIAL; HCO3-(ACT) 26.4 mmoll (20.0-26.0); METHB 0.7 % (0.0-1.5); O2(CT) 17.1 mL/dL (15.0-23.0); PO2(98.6) 174 mmHg (60-100); SAMPLE BLOOD; SAO2 100.6 % (95.0-100.0); THB 12.3 g/dL (11.5-17.4); pH(98.6) 7.34 (7.35-7.45)
[2019-04-21 12:57] LABS: MODALITY CANNULA; PCO2(98.6) 53 mmHg (35-45)
--- NOTE | 2019-04-21 13:12 | Diag Imaging Result Doc PS360 ---
EXAM: CHEST-PORTABLE HISTORY: stroke like symptoms TECHNIQUE: Chest single view COMPARISON: None. FINDINGS: Poor inspiratory effort. There are bilateral infiltrates. Heart is mildly prominent. There is a right-sided pacemaker and a right jugular line. No pneumothorax. The small pleural effusions. IMPRESSION: Cardiomegaly with pulmonary edema. Electronically signed by Richard Winston 04/21/2019 1:10 PM
[2019-04-21] MEDS ORDERED: LASIX IV ONE (13:28)
[2019-04-21 13:57] LABS: INR 1.16; PROTIME 15.7 Seconds (11.0-16.0)
[2019-04-21 14:11] LABS: PTT 25.6 Seconds (22.3-41.8)
[2019-04-21 14:22] LABS: BASO# 0.03 X1000 (0.0-0.2); BASO% 0.3 % (0.0-0.8); EOS# 0.18 X1000 (0.0-0.7); HEMATOCRIT 40.9 % (42.0-52.0); HEMOGLOBIN 12.4 g/dL (14.0-18.0); LYMPH# 1.08 X1000 (1.2-3.4); LYMPH% 12.1 % (20.5-51.1); MCH 31.3 PG (27-31); MCHC 30.3 g/dL (33-37); MCV 103.3 FL (81-99); MONO# 0.84 X1000 (0.11-0.59); MONO% 9.4 % (1.7-9.3); MPV 11.7 FL (7.4-10.4); NEUT% 76.2 % (42.2-75.2); PLT 65 X1000 (130-400); RBC 3.96 XMIL (4.7-6.1); RDW 17.7 % (11.5-14.5); WBC 8.93 X1000 (4.8-10.8)
[2019-04-21 14:24] LABS: ALB/GLOB RATIO 1.1; ALBUMIN 2.9 g/dL (3.5-5.0); CALCIUM 7.9 mg/dL (8.8-10.2); CREATININE 2.2 mg/dL (0.7-1.2); POTASSIUM 4.7 mmol/L (3.5-5.1); TOTAL BILIRUBIN 0.25 mg/dL (0.20-1.00); TOTAL PROTEIN 5.6 g/dL (6.3-8.3)
--- NOTE | 2019-04-21 14:26 | Diag Imaging Result Doc PS360 ---
CT HEAD W/O CONTRAST - 04/21/2019 INDICATION: stroke like symptoms COMPARISON: 03/16/2019 FINDINGS: There is stable advanced diffuse cerebral atrophy. Stable periventricular white matter chronic microvascular disease. The skull is intact. The sinuses are clear. IMPRESSION: No acute disease or change from prior. This exam was performed using automated exposure control, adjustment of mA or kV according to patient size, and/or use of iterative reconstruction technique Electronically signed by Sae Yoon 04/21/2019 2:24 PM
[2019-04-21 14:42] LABS: URINE SOURCE CATH
[2019-04-21 15:13] LABS: BILIRUBIN URINE NEGATIVE (NEGATIVE); BLOOD URINE SMALL (NEGATIVE); COLOR ORANGE; GLUCOSE URINE 150 mg/dL (NEGATIVE); KETONE URINE NEGATIVE (NEGATIVE); LEUKOCYTES URINE LARGE (NEGATIVE); NITRITE URINE NEGATIVE (NEGATIVE); PH URINE 6.5; PROTEIN URINE 100 mg/dL (NEGATIVE); SP GRAVITY URINE 1.021; TURBIDITY URINE TURBID (CLEAR); UROBILINOGEN URINE NORMAL (NORMAL)
[2019-04-21 15:16] LABS: UR AMPHETAMINES QUAL NONE DETECTED (NONE DETECT); UR BARBITUATES QUAL NONE DETECTED (NONE DETECT); UR BENZODIAZEPIN QUAL NONE DETECTED (NONE DETECT); UR CANNABINOIDS QUAL NONE DETECTED (NONE DETECT); UR COCAINE QUAL NONE DETECTED (NONE DETECT); UR EPITHELIAL CELLS >10 /HPF (<10); UR OPIATES QUAL NONE DETECTED (NONE DETECT); UR PCP QUAL NONE DETECTED (NONE DETECT); URINE BACTERIA 1+ /HPF; URINE RBC TNTC /HPF (<10); URINE WBC TNTC /HPF (<10)
[2019-04-21 15:17] LABS: UR METHADONE QUAL NONE DETECTED (NONE DETECT); UR OXYCODONE QUAL NONE DETECTED (NONE DETECT)
[2019-04-21] MEDS ORDERED: ROCEPHIN 1 GM in NS 50 ML IV ONE (15:21)
[2019-04-21 15:23] LABS: URINE CASTS NONE SEEN; URINE YEAST NONE SEEN
--- NOTE | 2019-04-21 15:56 | PROVIDER DOCUMENTATION ---
This chart was entered by Rose Ariza Scribe, acting as scribe for Ted Kent MD. HPI-Neurological Disorder - General Stated Complaint: UNRESPONSIVE Time Seen by Provider: 04/21/19 12:39 Source: EMS Allergies/Adverse Reactions: Patient Allergies Allergy/AdvReac Type Severity Reaction Status Date / Time No Known Allergies Allergy Verified 04/21/19 14:38 Home Medications: Home Medication List Medication Instructions Recorded Confirmed Last Taken Type Calcium Acetate [Phoslo] 667 mg PO BID 01/26/19 04/21/19 1 Day Ago History ~04/20/19 Cyanocobalamin (Vitamin B-12) 1,000 mcg PO DAILY 01/26/19 04/21/19 1 Day Ago History [B-12] ~04/20/19 Multivitamin [Multivitamins] 1 ea PO QAM 01/26/19 04/21/19 1 Day Ago History ~04/20/19 Aspirin 81 mg PO DAILY chewtab 02/11/19 04/21/19 04/20/19 Rx Guar Gum [Benefiber Packet] 1 ea PO DAILY packet 02/11/19 04/21/19 1 Day Ago Rx ~04/20/19 Epoetin Aldair [Epogen] 10,000 unit SUBQ MoWeFr@0900 vial 03/14/19 04/21/19 Unknown Rx Insulin Human NPH [Humulin N] 6 unit SUBQ QAM #1 vial 03/14/19 04/21/19 04/21/19 Rx Isosorbide Mononitrate E.r. [Imdur] 30 mg PO DAILY #30 tab 03/14/19 04/21/19 1 Day Ago Rx ~04/20/19 Mirtazapine [Remeron] 7.5 mg PO QHS #30 tab 03/14/19 04/21/19 1 Day Ago Rx ~04/20/19 Citric Acid/Sodium Citrate [Sod 30 ml PO DAILY 03/17/19 04/21/19 1 Day Ago Hi story Citrate-Citric Acid Soln] ~04/20/19 Polyethylene Glycol 3350 [Miralax] 17 gm PO DAILY 03/17/19 04/21/19 1 Day Ago History ~04/20/19 Venlafaxine HCl [Venlafaxine HCl 75 mg PO DAILY 03/17/19 04/21/19 1 Day Ago History ER] ~04/20/19 Calcium Carbonate Chew [Tums] 500 mg PO PC + HS PRN PRN tab.chew 03/20/19 04/21/19 Unknown Rx Menthol/Zinc Oxide Ointment 1 cm TOP PRN PRN tube 03/20/19 04/21/19 Unknown Rx [Calmoseptine Ointment] - History of Present Illness-Neuro Nature of Presenting Problem: Patient is a 88 year old male who presents to the ED via EMS after being found unresponsive by family. EMS states they could not moss picker a blood pressure or O2 sat. EMS states patient is a dialysis patient and had dialysis yesterday. Severity: reports: moderate Onset/Duration: reports: just prior to arrival Timing: reports: still present Context: reports: found unresponsive by family Character of Altered Mental Status: reports: unresponsive Similar Symptoms Previously?: No Recently seen or treated by another doctor?: No Review of Systems - Adult - REVIEW OF SYSTEMS - ADULT ROS:: unobtainable per condition Constitutional: reports: no symptoms reported Eyes: reports: no symptoms reported Ears, Nose, Mouth & Throat: reports: no symptoms reported Cardiovascular: reports: no symptoms reported Respiratory: reports: no symptoms reported Gastrointestinal: reports: no symptoms reported Genitourinary: reports: no symptoms reported Musculoskeletal: reports: no symptoms reported Integumentary: reports: no symptoms reported Neurological: reports: no symptoms reported Psychiatric: reports: no symptoms reported Endocrine: reports: no symptoms reported Hematologic/Lymphatic: reports: no symptoms reported Allergic/Immunologic: reports: no symptoms reported All Other Systems: Reviewed and Negative Past History - Adult - PAST MEDICAL HISTORY-ADULT Review of Records: reports: Old Records Reviewed, Nursing Assessment Review, Medications Reviewed, Social history reviewed & non-contributory. Major Childhood Illnesses: reports: denies history Cardiovascular: reports: denies history Respiratory: reports: denies history Gastrointestinal: reports: denies history Obstetrical/Gynecological: reports: denies history Genitourinary: reports: denies history Musculoskeletal: reports: denies history Neurological: reports: denies history Endocrine/Immune: reports: denies history Other Conditions: reports: denies history - IMMUNIZATION STATUS Childhood Immunizations: See Nurse Assessment Flu Vaccine: See Nurse Assessment - FAMILY HISTORY Family History: reviewed, not pertinent Physical Exam- Neurological - Physical Exam-Neuro General Appearance: no apparent distress, lethargic. negative: obtunded HENMT: other (dry mucous membranes. patient has a gag reflex). negative: moist mucous membranes, angioedema Head Injury: no evidence of injury. negative: ecchymosis, lacerations Neck: non-tender, normal inspection. negative: C-spine tenderness Respiratory: chest non-tender, decreased breath sounds (bilateral bases). negative: crackles, rhonchi, stridor Cardiovascular: normal peripheral pulses, regular rate, rhythm. negative: tachycardia, systolic murmur Abdominal Exam: normal bowel sounds, non tender, soft. negative: guarding, rebound Extremity: normal inspection, other (able to move all extremities). negative: deformity, erythema rheumatologist Exam: other (unable to assess per patient's condition) Coordination/Gait: other (unable to assess per patient's condition) Motor/Sensory: other (unable to assess per patient's condition) Neurologic: other (unable to assess per patient's condition) Integumentary: normal color, normal turgor, warm/dry. negative: cyanosis, ecchymosis, erythema, jaundice Psych/Mental Status: other (lethargic). negative: normal mood/affect, anxious Progress - PLAN OF CARE/RESULTS Progress/Plan/Lab Results: Vital Signs - 8 hr 04/21/19 12:48 04/21/19 14:36 Temperature 98 F Pulse Rate 85 92 H Respiratory Rate 18 20 Blood Pressure 124/76 115/62 O2 Sat by Pulse Oximetry 98 89 L Laboratory Results - last 24 hr 04/21/19 04/21/19 04/21/19 12:50 13:32 13:35 WBC 8.93 RBC 3.96 L Hgb 12.4 L Hct 40.9 L MCV 103.3 H MCH 31.3 H MCHC 30.3 L RDW Std Deviation 17.7 H Plt Count 65 L MPV 11.7 H Neut % (Auto) 76.2 H Lymph % (Auto) 12.1 L [place] % (Auto) 9.4 H Eos % (Auto) 2.0 Baso % (Auto) 0.3 Neut # (Auto) 6.80 H Lymph # (Auto) 1.08 L [place] # (Auto) 0.84 H Eos # (Auto) 0.18 Baso # (Auto) 0.03 PT INR PTT (Actin FS) Specimen Type ARTERIAL Sample Site R BRACHIAL pH 7.34 L pCO2 53 H* pO2 174 H HCO3 26.4 H Base Excess 1.9 Oxyhemoglobin 97.0 ABG O2 Sat (Calculated) 17.1 ABG O2 Saturation 100.6 H ABG Carboxyhemoglobin 2.90 H ABG Methemoglobin 0.7 Skyler Test NO A-a O2 Difference 16.0 Total Hemoglobin 12.3 Lactate 1.10 Liter Flow 4.0 Blood Gas Modality CANNULA FiO2 % 36.0 Sodium Potassium Chloride Carbon Dioxide Anion Gap BUN Creatinine Estimated GFR/1.73 m2 BUN/Creatinine Ratio Glucose POC Glucose 145 H Calculated Osmolality Calcium Total Bilirubin AST ALT Alkaline Phosphatase Troponin T Total Protein Albumin Globulin Albumin/Globulin Ratio Urine Source Urine Color Urine Turbidity Urine pH Ur Specific [place] Urine Protein Ur Glucose (Stick) Ur Ketones (Stick) Urine Blood Urine Nitrite Urine Bilirubin Urobilinogen Dipstick Urine Leukocytes Urine WBC (Auto) Urine RBC (Auto) U Epithel Cells (Auto) Urine Bacteria (Auto) Urine Crystals Small Round Cells Urine Casts Urine Yeast-like Cells Urine Opiates Screen Ur Oxycodone Screen Ur Methadone, Qual Ur Barbiturates Screen Ur Phencyclidine Scrn Ur Amphetamines Screen U Benzodiazepines Scrn Urine Cocaine Screen U Cannabinoids Screen 04/21/19 04/21/19 04/21/19 13:35 13:35 13:35 WBC RBC Hgb Hct MCV MCH MCHC RDW Std Deviation Plt Count MPV Neut % (Auto) Lymph % (Auto) [place] % (Auto) Eos % (Auto) Baso % (Auto) Neut # (Auto) Lymph # (Auto) [place] # (Auto) Eos # (Auto) Baso # (Auto) PT 15.7 INR 1.16 PTT (Actin FS) 25.6 Specimen Type Sample Site pH pCO2 pO2 HCO3 Base Excess Oxyhemoglobin ABG O2 Sat (Calculated) ABG O2 Saturation ABG Carboxyhemoglobin ABG Methemoglobin Skyler Test A-a O2 Difference Total Hemoglobin Lactate Liter Flow Blood Gas Modality FiO2 % Sodium 136 Potassium 4.7 Chloride 97 L Carbon Dioxide 25 Anion Gap 14 BUN 27 H Creatinine 2.2 H Estimated GFR/1.73 m2 28 BUN/Creatinine Ratio 12 Glucose 158 H POC Glucose Calculated Osmolality 280 Calcium 7.9 L Total Bilirubin 0.25 AST 20 ALT 11 Alkaline Phosphatase 94 Troponin T 0.082 Total Protein 5.6 L Albumin 2.9 L Globulin 2.7 Albumin/Globulin Ratio 1.1 Urine Source Urine Color Urine Turbidity Urine pH Ur Specific [place] Urine Protein Ur Glucose (Stick) Ur Ketones (Stick) Urine Blood Urine Nitrite Urine Bilirubin Urobilinogen Dipstick Urine Leukocytes Urine WBC (Auto) Urine RBC (Auto) U Epithel Cells (Auto) Urine Bacteria (Auto) Urine Crystals Small Round Cells Urine Casts Urine Yeast-like Cells Urine Opiates Screen Ur Oxycodone Screen Ur Methadone, Qual Ur Barbiturates Screen Ur Phencyclidine Scrn Ur Amphetamines Screen U Benzodiazepines Scrn Urine Cocaine Screen U Cannabinoids Screen 04/21/19 04/21/19 14:33 14:33 WBC RBC Hgb Hct MCV MCH MCHC RDW Std Deviation Plt Count MPV Neut % (Auto) Lymph % (Auto) [place] % (Auto) Eos % (Auto) Baso % (Auto) Neut # (Auto) Lymph # (Auto) [place] # (Auto) Eos # (Auto) Baso # (Auto) PT INR PTT (Actin FS) Specimen Type Sample Site pH pCO2 pO2 HCO3 Base Excess Oxyhemoglobin ABG O2 Sat (Calculated) ABG O2 Saturation ABG Carboxyhemoglobin ABG Methemoglobin [place] Test A-a O2 Difference Total Hemoglobin Lactate Liter Flow Blood Gas Modality FiO2 % Sodium Potassium Chloride Carbon Dioxide Anion Gap BUN Creatinine Estimated GFR/1.73 m2 BUN/Creatinine Ratio Glucose POC Glucose Calculated Osmolality Calcium Total Bilirubin AST ALT Alkaline Phosphatase Troponin T Total Protein Albumin Globulin Albumin/Globulin Ratio Urine Source CATH Urine Color ORANGE Urine Turbidity TURBID Urine pH 6.5 Ur Specific [place] 1.021 Urine Protein 100 A Ur Glucose (Stick) 150 A Ur Ketones (Stick) NEGATIVE Urine Blood SMALL A Urine Nitrite NEGATIVE Urine Bilirubin NEGATIVE Urobilinogen Dipstick NORMAL Urine Leukocytes LARGE A Urine WBC (Auto) TNTC A Urine RBC (Auto) TNTC A U Epithel Cells (Auto) >10 A Urine Bacteria (Auto) 1+ Urine Crystals Not Reportable Small Round Cells Not Reportable Urine Casts NONE SEEN Urine Yeast-like Cells NONE SEEN Urine Opiates Screen NONE DETECTED Ur Oxycodone Screen NONE DETECTED Ur Methadone, Qual NONE DETECTED Ur Barbiturates Screen NONE DETECTED Ur Phencyclidine Scrn NONE DETECTED Ur Amphetamines Screen NONE DETECTED U Benzodiazepines Scrn NONE DETECTED Urine Cocaine Screen NONE DETECTED U Cannabinoids Screen NONE DETECTED Orders Category Date Time Status Cardiac Monitoring DIRECTED Care 04/21/19 12:40 Active Finger Stick Blood Sugar (ED) DIRECTED Care 04/21/19 12:40 Active Misc. NRSG Communication Order DIRECTED Care 04/21/19 12:40 Active Saline Loc NOW Care 04/21/19 12:40 Active Straight Catheterization ORDERED Care 04/21/19 14:28 Active CHEST-PORTABLE [RAD] Stat Exams 04/21/19 12:[address] HEAD W/O CONTRAST [CT] Stat Exams 04/21/19 12:40 Completed ABG [RESP] Routine Lab 04/21/19 12:50 Completed BLOOD CULTURE [BLDCUL] Stat Lab 04/21/19 15:20 Ordered CBC WITH ELECTRONIC DIFF [HEME] Stat Lab 04/21/19 13:35 Completed COMPREHENSIVE METABOLIC PANEL [CHEM] Stat Lab 04/21/19 13:35 Completed LACTATE, PLASMA [CHEM] Stat Lab 04/21/19 15:20 Ordered PROTIME WITH INR [COAG] Stat Lab 04/21/19 13:35 Completed PTT [COAG] Stat Lab 04/21/19 13:35 Completed TROPONIN T Stat Lab 04/21/19 13:35 Completed URINALYSIS W/POSS RFLX CULT [URINALYSIS] Stat Lab 04/21/19 14:33 Completed URINE CULTURE [RM] Routine Lab 04/21/19 15:19 Received URINE DRUG SCREEN Stat Lab 04/21/19 14:33 Completed URINE MANUAL MICROSCOPIC [URINALYSIS] Stat Lab 04/21/19 14:33 Completed CefTRIAXONE [Rocephin] 1 gm Med 04/21/19 15:21 Discontinued 0.9% Sodium Chloride Inj [Ns] 50 ml IV NOW Furosemide [Lasix] Med 04/21/19 13:28 Discontinued 80 mg IV NOW ONE EKG [EKG] Stat Ther 04/21/19 12:40 Active 1517 - Dr. Kent consulted with patient's daughter about patient's code status. Patient's daughter states patient is a DNR. Result Diagrams: 04/21/19 13:35 04/21/19 13:35 - EKG 1 Time of EKG reading by physician:: 12:38 EKG Read and Signed by:: Ted Kent EKG Interpretation (*Must complete 3 of following elements*): Abnormal Rate: 86 Rhythm: normal sinus rhythm [place]: left CA Interval: normal Comments: nonspecific intraventricular block; inferior infarct, age undetermined - XRAY 1 XRAY Study: Chest Impression: See EMR Report (EXAM: CHEST-PORTABLE HISTORY: stroke like symptoms TECHNIQUE: Chest single view COMPARISON: None. FINDINGS: Poor inspiratory effort. There are bilateral infiltrates. Heart is mildly prominent. There is a right-sided pacemaker and a right jugular line. No pneumothorax. The small pleural effusions. IMPRESSION: Cardiomegaly with pulmonary edema. Electronically signed by Richard Winston 04/21/2019 1:10 PM 04/21/19 1310 Interpreting Physician: Richard Winston MD Dictated Date/Time: 04/21/19 1309 cc: Ted Kent MD; None,PCP) - CT/MRI 1 CT Study: Head Impression: See EMR Report ( CT HEAD W/O CONTRAST - 04/21/2019 INDICATION: stroke like symptoms COMPARISON: 03/16/2019 FINDINGS: There is stable advanced diffuse cerebral atrophy. Stable periventricular white matter chronic microvascular disease. The skull is intact. The sinuses are clear. IMPRESSION: No acute disease or change from prior. This exam was performed using auto mated exposure control, adjustment of mA or kV according to patient size, and/or use of iterative reconstruction technique Electronically signed by Sae Yoon 04/21/2019 2:24 PM 04/21/19 1424 Interpreting Physician: Sae Yoon MD Dictated Date/Time: 04/21/19 1423 cc: Ted Kent MD; Ever Willett MD) - CONSULTS/PCP/HOSPITALIST Notification #1 *Consult/PCP/Hospitalist*: Dr. Willett Time Discussed: 15:50 Reason/Comments: Dr. Kent consulted with Dr. Willett about patient. Consult Disposition: Will see in ED, Admit Departure - Departure Date of Disposition Decision: 04/21/19 Time of Disposition Decision: 15:50 DIAGNOSIS: Hypoxia, Altered mental status, UTI (urinary tract infection), End stage renal disease Disposition: ADMITTED INPATIENT 09 Certified Medical Emergency: Emergent Condition: Stable Referrals and Follow-Ups: None,PCP [NON-STAFF PROVIDER] - Ever Willett MD [Primary Care Provider] - [facility],Janae Stark [Outside Vendor] - - Critical Care Note This patient required my direct & personal management of CC.: Yes Total Time (mins): 37 Critical Care Statement: This patient required my direct personal management to treat or rule out processes, the absence of which, could potentiallly result in sudden, clinically significant life or limb threatening deterioration. Attestation - Physician/ DELLA Attestation The physician spent face to face time with patient:: Yes Advanced Practice Provider documentation review:: Supervising physician onsite and consulted in the evaluation and care of this patient. The physician did have a face to face encounter with the patient. This chart was documented by the indicated scribe, (Rose Ariza Scribe) and accurately reflects the services I performed and decisions made by me, Ted Kent MD, as attested by the provider's signature.
--- NOTE | 2019-04-21 19:23 | HISTORY AND PHYSICAL ---
CHIEF COMPLAINT: Decreased responsiveness. HISTORY OF PRESENT ILLNESS: Mr. 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 He was recently discharged from [facility] after an approximately 1-month stay for attempted rehab. He had broken a hip earlier this year and has been in declining health since. During his recent hospital stay a month ago he was seen by [facility], and discharge to Hospice was recommended, but he strongly preferred 1 more attempt at rehab. He had minimal progress at rehab and was discharged approximately a week ago. He has been going for hemodialysis Saturday, Saturday and Saturday, although I am not sure if he was able to attend yesterday. He and his daughter have apparently since discharge decided against further resuscitation attempts, and she called the ER physician to make this clear earlier today. Earlier today he was seen by his occupational therapist and felt to be moribund with diminished responsiveness. He was sent to the emergency room for further evaluation. Here, his chest x-ray has suggested pulmonary edema, and a CT scan of the brain showed no acute or new lesions. He opens his eyes to voices and seems to recognize me. He denies pain or shortness of breath. PAST MEDICAL HISTORY: Longstanding type 2 diabetes mellitus and hypertension which caused his renal failure. He has been on hemodialysis for over 18 months, but for the last 4-5 months he has had very poor quality of life and limited ability to ambulate since his hip fracture. He also has a history of systolic and diastolic congestive heart failure, multiple previous myocardial infarctions, and ischemic cardiomyopathy. 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 FAMILY HISTORY: Positive for hypertension and diabetes. SOCIAL HISTORY: He is and has been living with his , but she has severe dementia, and they basically have [id number] sitters while his qvbjpadi-rn-ycd works. His vuwlvyij-fo-zab Rose Mary Sage is his Power of Management Assistant. ALLERGIES: No known drug allergies. HOME MEDICATIONS: See electronic chart. REVIEW OF SYSTEMS: Generally unobtainable. It should be noted that during an admission before the last one, he had 2 brief cardiac arrests which responded to momentary chest compressions. These were felt to be from bradycardia due to his ischemic cardiomyopathy. PHYSICAL EXAMINATION: VITAL SIGNS: See nurses' notes. GENERAL APPEARANCE: Elderly, [id number], lethargic gentleman lying in bed. HEENT: His pupils are equal and responsive. Extraocular movements are untested. NECK: Supple with no tenderness, adenopathy or bruits. CHEST: Clear to auscultation anteriorly. Rare crackles posteriorly. CARDIOVASCULAR: Regular rate and rhythm with no murmurs or gallops. Telemetry suggests a paced rhythm. ABDOMEN: Soft, flat and nontender with active bowel sounds. There is a right subclavian Vas- Cath. There is a right forearm intravenous saline lock. EXTREMITIES: Decreased muscle mass throughout. His right hip incision has healed well. His right ankle remains slightly ecchymotic. There is minimal if any redness. There is no increased warmth or tenderness. Passive movement of the right ankle elicits no evidence of painful stimulus. ASSESSMENT: 1. Chronic end-stage renal disease, previously on hemodialysis. I have put in a consult for Dr. Rice, but I think it is certainly reasonable to withhold hemodialysis and allow nature to take its course. 2. Type 2 diabetes mellitus. He has a nearly normal glucose, and I feel he is unlikely to eat enough to require any additional insulin. 3. End-stage ischemic cardiomyopathy. 4. Recent hip fracture with diminished mobility. TREATMENT PLAN: Will admit for treatment of urinary tract infection evidenced by the white blood cells and bacteria in the urine. He has already been given 1 gram of Rocephin, but he is a difficult stick, and blood cultures are yet to be obtained. I think he is an ideal patient for inpatient hospice care, but we will talk to him and his daughter about this and try to make a decision tomorrow. He will be a [id number]-hlos level 1. cc: Ever Willett MD
[2019-04-21] MEDS ORDERED: ROCEPHIN 1 GM in NS 50 ML IV SCH (20:17)
[2019-04-21] MEDS ORDERED: CALMOSEPTINE OINTMENT TOP PRN (20:17)
[2019-04-21] MEDS ORDERED: TUMS PO PRN (20:17)
[2019-04-21] MEDS ORDERED: DILAUDID IV PRN (20:17)
[2019-04-21] MEDS ORDERED: ZOFRAN IV PRN (20:17)
[2019-04-22] MEDS ORDERED: NS 2,000 ML MISC PRN (06:20)
[2019-04-22] MEDS ORDERED: TIGHT: 0.2 ML/HR FOR DIALYSIS MISC PRN (06:20)
[2019-04-22] MEDS ORDERED: HEPARIN IV PRN (06:20)
[2019-04-22] MEDS ORDERED: ALBUMIN 25% IV ONE (09:41)
[2019-04-22] MEDS: EFFEXOR XR PO SCH (15:50)
[2019-04-22] MEDS: IMDUR PO SCH (15:50)
[2019-04-22] MEDS ORDERED: ROCEPHIN 1 GM in NS 50 ML IV SCH (17:00)
--- NOTE | 2019-04-22 17:40 | NEPHROLOGY CONSULTATION ---
DATE: 04/22/2019 ATTENDING PHYSICIAN: Ever Willett MD REASON FOR CONSULTATION: He is evaluate and treat. HISTORY OF PRESENT ILLNESS: Mr. Sage is an 88-year-old man who has been home for a very short period of time after a recent stay in rehabilitation. He has been going to his dialysis treatments 3 times weekly. He was brought to the hospital because he was moribund at the time of arrival of the ambulance crew. There has been some discussion in the note about whether he might want to stop dialysis, but he did not voice any opinion on that to me. No shortness of breath, nausea, or vomiting. PAST MEDICAL HISTORY: Diabetes, hypertension, ESRD, cardiomyopathy, recent hip fractures, bed- bound state. MEDICATIONS: Reviewed. ALLERGIES: Reviewed. SOCIAL HISTORY: He lives with his , but she has severe dementia, and he has been recently discharged from rehabilitation. PHYSICAL EXAMINATION: Blood pressure 149/66, heart rate 82, respirations 15, afebrile. Generally in no acute distress. Skin is warm and dry. Conjunctivae are pink. Has multiple ecchymoses. Pupils are equal. Oropharynx is dry. Neck veins are distended. Heart is irregular. Lungs are equal with a few scattered crackles. Abdomen is soft, nontender. Bowel sounds present. Extremities with 2+ edema. No clubbing or cyanosis. IMPRESSION: Chronic kidney disease, 5D. We will continue dialysis until or unless the patient directs us otherwise. A 2 K bath. A 3 L ultrafiltration as tolerated. Hemoglobin, blood pressure, potassium, bicarbonate all in target. cc: MD Ever Valentine MD
[2019-04-23] MEDS ORDERED: HEPARIN IV PRN (07:02)
[2019-04-23] MEDS ORDERED: TIGHT: 0.2 ML/HR FOR DIALYSIS MISC PRN (07:02)
[2019-04-23] MEDS ORDERED: NS 2,000 ML MISC PRN (07:02)
[2019-04-23] MEDS: IMDUR PO SCH (12:57)
[2019-04-23] MEDS: EFFEXOR XR PO SCH (12:57)
--- NOTE | 2019-04-23 13:09 | NEPHROLOGY PROGRESS NOTE ---
DATE: 04/23/2019 SUBJECTIVE: He is more alert today. Answers my questions. Denies pain or shortness of breath. OBJECTIVE: Vital Signs: Blood pressure 114/59, heart rate 83, respirations 22, afebrile. General: No acute distress. Skin: Warm and dry. Neck: Neck veins are not distended. Heart: Regular. Lungs: Equal. No crackles. Shallow. Abdomen: Soft, nontender. Bowel sounds present. Extremities: With at least 2+ edema with weeping. Neurologic: Grossly nonfocal. IMPRESSION: Chronic kidney disease 5D with volume overload. Extra treatment today for ultrafiltration only. cc: MD Ever Valentine MD
[2019-04-23] MEDS ORDERED: DULCOLAX PR ONE (13:35)
[2019-04-23] MEDS: PHOSLO PO SCH (20:36)
[2019-04-24] MEDS ORDERED: TIGHT: 0.2 ML/HR FOR DIALYSIS MISC PRN (05:46)
[2019-04-24] MEDS ORDERED: HEPARIN IV PRN (05:46)
[2019-04-24] MEDS ORDERED: NS 2,000 ML MISC PRN (05:46)
[2019-04-24] MEDS: IMDUR PO SCH (08:53)
[2019-04-24] MEDS: PHOSLO PO SCH ×2 (08:53→21:16)
[2019-04-24] MEDS: EFFEXOR XR PO SCH (08:53)
[2019-04-24] MEDS ORDERED: CATHFLO IV ONE ×2 (10:15)
[2019-04-24] MEDS ORDERED: STERILE WATER INJ. INJ ONE (10:15)
--- NOTE | 2019-04-24 12:26 | NEPHROLOGY PROGRESS NOTE ---
DATE: 04/24/2019 SUBJECTIVE: He is awake, alert. States he feels better today. No shortness of breath. OBJECTIVE: Vital Signs: Blood pressure 110/65, heart rate 77, respiration 18, afebrile. General: No acute distress. Skin: Warm and dry. HEENT: Conjunctivae are pink. Neck: Neck veins are not appreciated. Heart: Regular with gallop and murmur. Lungs: Equal. No crackles. Abdomen: Soft, nontender. Bowel sounds present. Extremities: Have 2+ edema. No clubbing or cyanosis. IMPRESSION: Chronic kidney disease 5D. I read Dr. Wilkinson's note. Agree with hospice plan. He will have his routine dialysis today and then he can be discharged. cc: MD Ever Valentine MD
[2019-04-24] MEDS ORDERED: ULTRAM PO PRN (19:28)
[2019-04-25 07:24] VITALS: BP 129/67
[2019-04-25] MEDS: EFFEXOR XR PO SCH (08:06)
[2019-04-25] MEDS: IMDUR PO SCH (08:06)
[2019-04-25] MEDS: PHOSLO PO SCH (08:06)
--- NOTE | 2019-04-25 11:06 | DISCHARGE SUMMARY ---
ADMISSION DATE: 04/21/2019 DISCHARGE DATE: 04/25/2019 FINAL DIAGNOSES: 1. Altered mental status. 2. Acute exacerbation of chronic ischemic cardiomyopathy and congestive heart failure. 3. Chronic systolic heart failure. 4. Chronic diastolic heart failure. 5. End-stage renal disease. 6. Type 2 diabetes mellitus with multiple complications. 7. Essential hypertension. 8. Pseudogout of multiple joints. 9. Coronary artery disease. 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 He was recently discharged from rehab. He had been traveling back and forth to dialysis by ambulance for approximately at week. On the day of admission he was seen by his home health occupational therapist and felt to be near with diminished responsiveness. He was sent to the Emergency Room by ambulance where his chest x-ray suggested pulmonary edema. He was lethargic but opened his eyes to voices and was able to nod denials for pain or shortness of breath. PHYSICAL EXAMINATION: General: Physical examination revealed a chronically ill-appearing, lethargic, elderly gentleman lying in bed. HEENT: Pupils were equal and responsive. Extraocular movements were untested. Neck: Supple with no adenopathy or bruits. Lungs: Clear anteriorly with a few crackles heard posteriorly. Cardiovascular: Regular rhythm with paced rhythm on telemetry. A right subclavian Vas-Cath was noted and there appeared to be no evidence of inflammation. HOSPITAL COURSE: In the Emergency Room his O2 saturation was low and due to peripheral vasoconstriction was often unobtainable. Urinalysis suggested infection but subsequent urine culture was negative and I did not think he had any significant infection. His decreased responsiveness was probably a combination of hypoxia and uremia. He was seen by Dr. Rice and underwent dialysis on Saturday and Saturday and ultrafiltration to remove additional fluid on . He and his [id number] since the previous admission had agreed for a no code blue level 1 status and he was receptive to hospice evaluation. Hospice felt that he was a good candidate for their services and because of his primary diagnosis of end-stage ischemic cardiomyopathy he would be able to continue hemodialysis. He will be discharged on home oxygen at 2 to 3 L/min as needed but I suspect a lot of his hypoxia is due to peripheral vasoconstriction. He will be followed by the Hospice Care Team at home. He will require ambulance transport back home as he is too weak to travel sitting in a wheelchair. cc: Ever Willett MD
--- NOTE | 2019-04-25 18:01 | NEPHROLOGY PROGRESS NOTE ---
DATE: 04/25/2019 SUBJECTIVE: He anticipates discharge home with hospice. He has some confusion today. He is worried about Germans and being covered by dirt. OBJECTIVE: Blood pressure 129/67, heart rate 101, respirations 19, afebrile. Generally, no acute distress. Skin is warm and dry. Neck veins not appreciated. Heart regular, with murmur. Lungs are equal, shallow. No crackles. Abdomen is soft, benign, nontender. Extremities have 1+ edema. No clubbing or cyanosis. IMPRESSION AND PLAN: Chronic kidney disease 5D. He is going home with hospice based on his heart failure. He will attend his routine dialysis treatment on Saturday. cc: MD Ever Valentine MD
== END 2019-04-25 11:12 | disposition hospice, home (50) | DRG 291 ==
LOC: EDBD → SUPCPDRO → ED 12:32 → EDIPHOLD 12:33 → 3S 04-22 14:54
PROVIDERS: ADMIT Internal Medicine; ATTEND Internal Medicine
CPT/HCPCS: 51701; 70450; 71010; 71045; 80053; 80101; 80301; 80307; 80324; 80345; 80346; 80353; 80358; 80361; 80365; 81001; 82805; 82948; 83605; 83992; 84484; 85025; 85610; 85730; 87040; 87088; 93005; 94761; 94762; 96365; 96375; 99285; A9270; G0431; G0434; G0479; G0480; J0696; J1940; J2997; J7030; P9047; P9612; XXXXX